=== PATIENT | female | born 1995 | race Caucasian/White ===

== ENCOUNTER 2019-03-24 18:10 | Emergency (ER) | payer MEDICAID, SELFPAY ==
[2019-03-24 18:10] VITALS: BP 125/73; PULSE 77; RESP 18; TEMP 36.2; O2SAT 100; BMI 24.0
--- NOTE | 2019-03-24 18:41 | ED.VISSUMM ---
- ER Visit Summary Date of Service: 03/24/19 Chief Complaint: Nausea and vomiting History of Present Illness: The patient is a 24 F who presents with nausea and vomiting for the past 3 days. Patient states that she has had 10 episodes of vomiting in the last 24 hours. Patient denies any hematemesis or coffee-ground emesis. Patient states her vomiting is stomach contents. Patient admits to some mild aching right lower abdominal pain. Patient states nothing makes it better or worse. Patient denies any diarrhea, melena, or hematochezia. Patient states she is approximately 9 weeks on her third . Patient denies any dysuria or hematuria. Patient denies any fevers or chills. Physical Examination: Vital signs are stable. Patient is afebrile. Patient is in no acute distress. Oral mucosa is pink and moist. Neck is supple. Trachea is midline. There is no JVD noted. Heart was regular rate and rhythm. Lungs are clear and equal bilaterally. Abdomen is soft. Bowel sounds are normal. There is some mild right lower quadrant tenderness. There is no rebound or guarding noted. Cranial nerves II through XII are intact. There are no focal motor or sensory deficits noted. Test Results: CBC, comprehensive metabolic profile, and urinalysis were obtained and were essentially within normal limits. Emergency Department Course and Treatment: Patient was given IV fluids and Zofran here. Patient felt better on reevaluation. Patient was instructed to take small sips of fluids more frequently and advance her diet as she starts to feel better. Patient was instructed to follow-up with her primary care physician and ENVIRONMENTAL RESOURCE SPECIALIST in 5 to 7 days. Patient understood and was agreeable with the plan. All questions were answered. Disposition: Discharge home Impression: Nausea and vomiting This note was generated with [employer] dictation software. It may contain incorrect words, spelling, and punctuation that were not noted in review of the chart prior to signing ED Disposition - Plan for ED Patient: Disposition: Home or Assisted Living Diagnosis: Nausea and vomiting Instructions: VOMITING (7y-Adult) Referrals: Town Doctor,Out of [Primary Care Provider] - 5-7 Days
[2019-03-24] MEDS: 0.9% Normal Saline 1,000 ML 1000 ML IV (19:06)
[2019-03-24] MEDS: Ondansetron 4 MG/2 ML Vial IV (19:11)
[2019-03-24 19:22] LABS: Absolute Lymphocyte Count 2.12 X10^3/ul (0.83-4.51); Absolute Neutrophil Count 7.8 X10^3/uL (2.0-7.7); Basophil# 0.02 X10^3/uL; Basophil% 0.2 % (0-1); Eosinophil# 0.06 X10^3/uL; Eosinophils% 0.6 % (0-5); Hematocrit 38.6 % (37-47); Hemoglobin 13.4 g/dl (12.0-15.0); Lymphocyte # 2.12 X10^3/ul (4.0); Lymphocyte % 20.2 % (19-41); Mean Corp Hgb Conc 34.7 g/gl (32-36); Mean Corpuscular Hgb 30.9 pg (27.0-32.0); Mean Corpuscular Volume 88.9 fL (81-99); Mean Platelet Vol. 8.8 fl (6.2-12.0); Monocyte# 0.53 X10^3/uL; Monocyte% 5.1 % (0-10); Neutrophil # 7.75 X10^3/uL (2.7-7.7); Neutrophil % 73.8 % (47-70); Platelet Count 259 K/mm3 (150-450); RBC Distribution Width CV 12.2 % (11.6-14.6); RBC Distribution Width SD 39.1 fl (35.1-43.9); Red Blood Count 4.34 M/mm3 (4.2-5.4); White Blood Count 10.5 K/mm3 (4.4-11.0)
[2019-03-24 19:31] LABS: POSITIVE COUNT NO; POSITIVE DIFFERENTIAL NO; POSITIVE MORPHOLOGY NO
[2019-03-24 19:42] LABS: ALB/GLOB Ratio 0.9 RATIO (0.9-2.4); AST(SGOT) 15 U/L (15-37); Alanine Aminotransfer ALT/SGPT 15 U/L (13-56); Albumin, Serum 3.6 g/dL (3.2-5.0); Alkaline Phosphatase 76 U/L (45-117); Anion Gap 10 (5-15); BUN 8 mg/dL (7-18); BUN/Creat Ratio 13.9 RATIO (10-20); Calcium,Total 8.9 mg/dL (8.5-10.1); Chloride 104 mmol/L (98-107); Creatinine, Serum 0.58 mg/dL (0.55-1.02); EST Glomerular Filtration Rate 138 mL/min (>60); Est Glom Filt Rate - Afr Amer 167 mL/min (>60); Estimated Creatinine Clearance 108.36 ml/min; Globulin 3.8 g/dL (2.2-4.2); Glucose 70 mg/dL (74-106); Lipase 90 U/L (73-393); Potassium 3.4 mmol/L (3.5-5.1); Protein, Total 7.4 g/dL (6.4-8.2); Sodium Level 138 mmol/L (136-145)
[2019-03-24 20:29] LABS: Bacteria 0 SEEN /hpf (None Seen); Mucous, Urine 0 SEEN /hpf (<or=2+); Red Blood Cells-Urine 0 SEEN /hpf (0-5)
[2019-03-24 21:19] LABS: Color, Urine Yellow (Yellow); Glucose, Dipstick Normal (Normal); Leukocyte Esterase-Dipstick 25 /ul (Negative); Nitrite-Dipstick Negative (Negative); Occult Blood-Urine Negative /ul (Negative); Protein-Dipstick Negative (Negative); Specific Gravity, Urine 1.025 (1.002-1.030); Urine Bilirubin Dipstick Negative (Negative); Urine Clarity Sl. Cloudy (Clear); Urine Urobilinogen Normal (Normal)
[2019-03-24 21:23] LABS: Ketone-Dipstick 150 mg/dl (Negative)
[2019-03-24 21:29] LABS: Squamous Epithelial Cells - UA 0-5 SEEN /hpf (5-10); White Blood Cells 0-5 SEEN /hpf (0-5)
--- NOTE | 2019-03-24 21:41 | ED.RN ---
mechelle from the lab called with a critical ketone urine value of 150 @2130, dr. manzo made aware @2130.
[2019-03-24 22:00] VITALS: BP 122/74; PULSE 75; RESP 16; O2SAT 99
== END 2019-03-24 22:18 | disposition home or self-care (01) ==
PROVIDERS: Emergency Provider Emergency Medicine
DX: O26.891 Other specified pregnancy related conditions, first trimester (principal); R11.2 Nausea with vomiting, unspecified; R10.31 Right lower quadrant pain; R51 Headache; Z3A.09 9 weeks gestation of pregnancy
CPT/HCPCS: 80053; 81001; 83690; 85025; 96361; 96374; 99283; J7030; J2405

== ENCOUNTER → 2019-03-27 11:16 | Outpatient (CLI) | payer MEDICAID, SELFPAY ==
[2019-03-27 10:46] VITALS: BMI 24.0
[2019-03-27 11:59] LABS: Absolute Lymphocyte Count 1.64 X10^3/ul (0.83-4.51); Absolute Neutrophil Count 5.8 X10^3/uL (2.0-7.7); Basophil# 0.01 X10^3/uL; Basophil% 0.1 % (0-1); Eosinophil# 0.04 X10^3/uL; Eosinophils% 0.5 % (0-5); Hematocrit 38.9 % (37-47); Hemoglobin 13.5 g/dl (12.0-15.0); Lymphocyte # 1.64 X10^3/ul (4.0); Lymphocyte % 20.8 % (19-41); Mean Corp Hgb Conc 34.7 g/gl (32-36); Mean Corpuscular Volume 89.2 fL (81-99); Mean Platelet Vol. 8.7 fl (6.2-12.0); Monocyte# 0.38 X10^3/uL; Monocyte% 4.8 % (0-10); Neutrophil # 5.79 X10^3/uL (2.7-7.7); Neutrophil % 73.7 % (47-70); POSITIVE COUNT NO; POSITIVE DIFFERENTIAL NO; POSITIVE MORPHOLOGY NO; Platelet Count 237 K/mm3 (150-450); RBC Distribution Width CV 12.4 % (11.6-14.6); RBC Distribution Width SD 39.3 fl (35.1-43.9); Red Blood Count 4.36 M/mm3 (4.2-5.4); White Blood Count 7.9 K/mm3 (4.4-11.0)
[2019-03-27 13:07] LABS: HIV - WCH Non-Reactive (Nonreactive); Rubella IgG 192.1 IU/mL
[2019-03-30 11:46] LABS: HEPATITIS B SURFACE AG Negative (Negative)
[2019-04-03 01:18] LABS: Rapid Plasmin Reagin (RPR) NONREACTIVE (NONREACTIVE)
== END ==
PROVIDERS: Referring Provider Obstetrics & Gynecology; Visit Provider Obstetrics & Gynecology
DX: Z34.81 Encounter for supervision of other normal pregnancy, first trimester (principal); Z31.430 Encounter of female for testing for genetic disease carrier status for procreative management
CPT/HCPCS: 36415; 85025; 86592; 86703; 86762; 86850; 86900; 87340

== ENCOUNTER → 2019-03-27 13:20 | Outpatient (CLI) | payer MEDICAID, SELFPAY ==
[2019-03-27 10:46] VITALS: BMI 24.0
[2019-03-27 16:05] LABS: Chlamydia Trachomatis by PCR Negative (Negative); Neisserai gonorrhoeae by PCR Negative (Negative); Probe Check PASS; Sample Adequacy Control PASS; Specimen Processing Control PASS
== END ==
PROVIDERS: Referring Provider Obstetrics & Gynecology; Visit Provider Obstetrics & Gynecology
DX: Z34.90 Encounter for supervision of normal pregnancy, unspecified, unspecified trimester (principal)
CPT/HCPCS: 36415; 85025; 86592; 86703; 86762; 86850; 86900; 87086; 87088; 87340; 87491; 87591

== ENCOUNTER → 2019-04-20 17:09 | Outpatient (CLI) | payer MEDICAID, SELFPAY ==
[2019-03-27 10:46] VITALS: BMI 24.0
== END ==
PROVIDERS: Referring Provider Obstetrics & Gynecology; Visit Provider Obstetrics & Gynecology
DX: Z34.81 Encounter for supervision of other normal pregnancy, first trimester (principal)
CPT/HCPCS: 36415

== ENCOUNTER → 2019-06-17 10:12 | Outpatient (CLI) | payer MEDICAID, SELFPAY ==
[2019-06-17 10:08] VITALS: BMI 24.0
== END ==
PROVIDERS: Referring Provider Obstetrics & Gynecology; Visit Provider Obstetrics & Gynecology
DX: Z36.9 Encounter for antenatal screening, unspecified (principal)
CPT/HCPCS: 36415

== ENCOUNTER → 2019-08-07 11:54 | Outpatient (CLI) | payer MEDICAID, SELFPAY ==
[2019-08-07 11:22] VITALS: BMI 24.0
[2019-08-07 12:40] LABS: Absolute Lymphocyte Count 1.59 X10^3/uL (0.83-4.51); Absolute Neutrophil Count 5.8 X10^3/uL (2.0-7.7); Basophil# 0.02 X10^3/uL; Basophil% 0.2 % (0-1); Eosinophil# 0.09 X10^3/uL; Eosinophils% 1.1 % (0-5); Hematocrit 37.6 % (37-47); Hemoglobin 12.7 g/dL (12.0-15.0); Lymphocyte # 1.59 X10^3/ul (4.0); Lymphocyte % 19.8 % (19-41); Mean Corp Hgb Conc 33.8 g/dL (32-36); Mean Corpuscular Hgb 30.8 pg (27.0-32.0); Mean Corpuscular Volume 91.3 fL (81-99); Mean Platelet Vol. 9.1 fl (6.2-12.0); Monocyte# 0.44 X10^3/uL; Monocyte% 5.5 % (0-10); NRBC Flagged by Analyzer 0 % (0-5); Neutrophil # 5.84 X10^3/uL (2.7-7.7); Neutrophil % 72.8 % (47-70); Platelet Count 205 K/mm3 (150-450); RBC Distribution Width CV 12.2 % (11.6-14.6); RBC Distribution Width SD 40.1 fl (35.1-43.9); Red Blood Count 4.12 M/mm3 (4.2-5.4)
[2019-08-07 13:12] LABS: Glucose Challenge Gest 1H 50g 122 mg/dL (70-140)
== END ==
PROVIDERS: Referring Provider Obstetrics & Gynecology; Visit Provider Obstetrics & Gynecology
DX: Z34.92 Encounter for supervision of normal pregnancy, unspecified, second trimester (principal); Z3A.27 27 weeks gestation of pregnancy
CPT/HCPCS: 36415; 82950; 85025

== ENCOUNTER 2019-08-15 14:24 | Outpatient (CLI) | payer MEDICAID, SELFPAY ==
[2019-08-07 11:22] VITALS: BMI 24.0
[2019-08-15 14:36] VITALS: BMI 25.0
--- NOTE | 2019-08-16 22:25 | OB.TRI.PN_ITS ---
Progress Notes Date of Service: 08/15/19 Progress Note: FHT: 130 Moderate variability reactive no decelerations category I tracing [place]: no regular Contractions decreased fm reactive nst dc home Multi Select Codes - Urinary/Genital Urinary/Genital CPT Codes: 57298-71 non-stress test Interp
== END 2019-08-15 14:50 | disposition home or self-care (01) ==
LOC: WPOUT 14:25 → OBT 14:27
PROVIDERS: Referring Provider Obstetrics & Gynecology; Visit Provider Obstetrics & Gynecology
DX: Z34.90 Encounter for supervision of normal pregnancy, unspecified, unspecified trimester (principal)
CPT/HCPCS: 59025; 59050; 99218; G0378

== ENCOUNTER → 2019-10-09 14:17 | Outpatient (CLI) | payer MEDICAID, SELFPAY ==
[2019-10-09 11:22] VITALS: BMI 25.0
== END ==
PROVIDERS: Referring Provider Nurse Practitioner Women's Health; Visit Provider Nurse Practitioner Women's Health
DX: Z34.80 Encounter for supervision of other normal pregnancy, unspecified trimester (principal)
CPT/HCPCS: 87081

== ENCOUNTER 2019-10-16 12:30 | Inpatient (IN) | payer MEDICAID, SELFPAY ==
[2019-10-16 11:17] VITALS: BMI 25.0
[2019-10-16 12:06] LABS: Protein:Creat Ratio 369 mg/g CRE (0-200)
[2019-10-16 12:24] VITALS: BMI 28.3
[2019-10-16] MEDS: Lactated Ringers 1,000 ML 50 ML IV (13:15)
[2019-10-16 13:34] LABS: Absolute Lymphocyte Count 2.38 X10^3/uL (0.83-4.51); Basophil# 0.03 X10^3/uL; Basophil% 0.3 % (0-1); Eosinophil# 0.05 X10^3/uL; Eosinophils% 0.5 % (0-5); Hematocrit 38.1 % (37-47); Hemoglobin 12.8 g/dL (12.0-15.0); Lymphocyte # 2.38 X10^3/ul (4.0); Lymphocyte % 23.6 % (19-41); Mean Corp Hgb Conc 33.6 g/dL (32-36); Mean Corpuscular Hgb 28.4 pg (27.0-32.0); Mean Corpuscular Volume 84.5 fL (81-99); Mean Platelet Vol. 9.7 fl (6.2-12.0); Monocyte# 0.61 X10^3/uL; NRBC Flagged by Analyzer 0 % (0-5); Neutrophil # 6.95 X10^3/uL (2.7-7.7); Neutrophil % 68.9 % (47-70); Platelet Count 185 K/mm3 (150-450); RBC Distribution Width CV 13.2 % (11.6-14.6); RBC Distribution Width SD 40.1 fl (35.1-43.9); Red Blood Count 4.51 M/mm3 (4.2-5.4); White Blood Count 10.1 K/mm3 (4.4-11.0)
[2019-10-16 13:45] LABS: Prothrombin Time (Protime)PT. 13.2 SECONDS (11.7-14.9)
[2019-10-16 13:46] LABS: AST(SGOT) 26 U/L (15-37); Alanine Aminotransfer ALT/SGPT 20 U/L (13-56); Creatinine, Serum 0.53 mg/dL (0.55-1.02); EST Glomerular Filtration Rate 150 mL/min (>60); Est Glom Filt Rate - Afr Amer 182 mL/min (>60); Estimated Creatinine Clearance 118.58 ml/min; Partial Thromboplast Time 29.4 Seconds (24.1-36.2); Uric Acid 4.7 mg/dL (2.6-6.0)
[2019-10-16] MEDS: Oxytocin 30 units/NS 500 ml 30 UNITS/500 ML IV.SOLN IV (13:57)
[2019-10-16] MEDS: Lactated Ringers 500 ML 999 ML IV ×2 (16:00→17:11)
[2019-10-16] MEDS: fentaNYL-bupivacaine (epidural) 100 ML BAG EPIDURAL ×2 (16:52→21:16)
--- NOTE | 2019-10-16 17:05 | PCM.HPOB.BLA ---
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 [place] low risk. afp negative. Anatomy scan normal. (4) Supervision of other normal Status: Acute Comment: PRR BEE 11/01/19 girl Aleksey Szymanski Spouse (5) Pre-eclampsia, mild Status: Acute History and Physical Date of Admission: 10/16/19 Intake Vital Signs 10/16/19 BMI 25.0 10/16/19 Height 5 ft 5 in 10/16/19 Weight: 148 lb 10/16/19 BMI 24.6 10/16/19 BP 140/102 H Intake Visit Reasons: 37 WEEK OB Chief Complaint: est ob Service Tech/Welder Required: No Is patient in pain?: No Allergies No Known Allergies Allergy (Verified 10/16/19 11:16) Medications vitamin#30 30 mg iron-10 mg iron-folic acid 1 mg-omg3 capsule 1 cap PO DAILY cap 03/27/19 [History Confirmed 10/16/19] Last Menstral Period: 01/18/19 Zika: Zika virus screening: Negative : No PFSH PFSH Medical History Anxiety and depression (Acute) Social History (Updated 10/16/19 @ 11:44 by Aracelis Lynn MD) Smoking Status: Never smoker alcohol intake: never substance use type: does not use caffeine: Yes what type of physical activity do you participate in: walking seatbelt use: always do you feel safe at home: Yes additional social history: [employer] 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 Date Name GA/Weeks Outcome Route Bth Weight Gen Labor Lgth Anesthesia Del Locatn Provider FOB Unknown 2013 Mark 39 live - full term 7lbs 8oz Female epidural Joe Huerta Unknown 2016 Aleksey 38 live - full term 6lbs 7oz Male epidural Joe Reese Delivery Date: On 03/27/19 @ 10:34 Carrie De Oliveira Vacuum delivery, episomtomy Delivery Date: On 03/27/19 @ 10:35 Carrie De Oliveira No complications HPI 37 WEEK OB: Details: RAISA HERNANDEZ is a 24 year old who presents for routine OB visit. she was found to have elevated bps and high protein in the urine therefore is being induced for preeclampsia. she has intemrittent headaches and some wavy vision but it has resolved at present. OB Visit BEE Calculator Estimated Delivery Date Method Current WG Current Estimate 11/01/19 Ultrasound #1 37w 5d Other Estimates 10/25/19 LMP (Certain) 38w 5d Expected Delivery Route/Plan Labor Preferences- labor support person: Rodrick pain management options preferred: epidural cut cord/dad catch: yes : yes PP control planned: discussed possible routes of delivery and associated risks: [] special requests: [] Specific Issue/Plans flu vaccine: declines tdap vaccine: given rhogam: na LARC form signed: yes movement and labor precautions reviewed. Problem list reviewed and updated with the most current plan of care details and appropriate orders placed. Relevant counseling for the gestational age provided. Continue routine care and follow up unless otherwise noted in visit notes/problem list details Initial Weight: 123 lb Date EGA Weight BP Urine Prot Glucose FHR FuHt Pres Mov CTX Dilation Effaced St Visit Note 03/27/19 8w 5d 123 lb 6 oz (+6 oz) 120/72 04/24/19 12w 5d 119 lb 2 oz (-3 lb 14 oz) 114/62 Negative Negative 160 no vb cramping had nipt carrier screening drawn saturday05/22/19 16w 5d 116 lb (-7 lb) 90/68 Negative Negative 150 no vb cramping still having nausea and some weight loss persistent 06/17/19 20w 3d 120 lb 2 oz (-2 lb 14 oz) 116/72 Negative Negative 150 no vb lof 07/17/19 24w 5d 125 lb (+2 lb) 110/68 Negative Negative 147 24 Good FM. NO cTX, LOF. VB 08/07/19 27w 5d 130 lb (+7 lb) 124/84 145 28 no vb lof good fm n oreg ctx cbc gct tdap 08/21/19 29w 5d 130 lb 4 oz (+7 lb 4 oz) 118/74 Negative Negative 151 30 Good FM. No VB, LOF 09/02/19 31w 3d 134 lb (+11 lb) 120/70 Negative Negative 150 31 no vb lof good fm noreg ctx 09/18/19 33w 5d 138 lb 4 oz (+15 lb 4 oz) Trace Negative 150 35 no vb lof good fm no reg ctx 10/02/19 35w 5d 143 lb (+20 lb) 118/84 Negative Negative 150 36 SM- no vb lof good fm no regular ctx 10/09/19 36w 5d 143 lb 4 oz (+20 lb 4 oz) 122/85 Negative Negative 164 36 1 30 -3 MH:doing well. Good FM. No VB, LOF. GBS 10/16/19 37w 5d 148 lb (+25 lb) 140/102 140 37 2.5 SM- no vb lof good fm no regular ctx. elevated bps and not feeling well- to l and d for evaluation Notes Visit Date: 10/16/19 ??No visit notes to display Visit Date: 10/09/19 ??No visit notes to display Visit Date: 10/02/19 ??No visit notes to display Visit Date: 09/18/19 ??no vb lof good fm no reg ctx ??Aracelis Lynn MD on 09/18/19 Visit Date: 09/02/19 ??no vb lof good fm noreg ctx ??Aracelis Lynn MD on 09/02/19 Visit Date: 08/21/19 ??Good FM. No VB, LOF ??MEGAN Byrd on 08/21/19 Visit Date: 08/07/19 ??no vb lof good fm n oreg ctx cbc gct tdap ??Aracelis Lynn MD on 08/07/19 Visit Date: 07/17/19 ??Good FM. NO cTX, LOF. VB ??MEGAN Byrd on 07/17/19 Visit Date: 06/17/19 ??no vb lof ??Aracelis Lynn MD on 06/17/19 Visit Date: 05/22/19 ??no vb cramping still having nausea and some weight loss persistent ??Aracelis Lynn MD on 05/22/19 Visit Date: 04/24/19 ??no vb cramping had nipt carrier screening drawn saturday ??Aracelis Lynn MD on 04/24/19 Visit Date: 03/27/19 ??No visit notes to display ACOG First Trimester First Trimester: Desire for , Alcohol, Tobacco Cessation, Illicit/Recreational Drug/Substance Use, Intimate Partner Violence, Barriers to care, Unstable Housing, Communication Barriers, Environmental/Work Hazards, Anticipated Course of Care, Toxoplasmosis Precations, Use of Any medications, Sexual activity, Exercise, Dental Care, Sauna/Hot tub use, Seat Belt use, Childbirth classes/Hospital facilities, , Travel, Indications for US and Screening for Aneuploidy Second Trimester Second Trimester: Signs and Symptoms of Labor, Selecting a care provider, Reproductive Life Planning, Care Planning, Tobacco Cessation, Depression/Anxiety and Intimate Partner Violence Third Trimester Third Trimester: Pain Management Plans, Labor support person(s), Immediate Larc, Movement Monitoring and Feeding Yes ; discussed Trial of Labor after Counseling or discussed Circumcision preference Diagnostics Diagnostics Diagnostics Glucose 1 Hr 50 gm 122 mg/dL (70-140) 08/07/19 Hgb 12.7 g/dL (12.0-15.0) 08/07/19 Hct 37.6 % (37-47) 08/07/19 Details: HIV: Urine Culture: Sequential Screen: NIPT Screen: ROS Const Reports system reviewed and no additional complaints, except as docu Card Reports system reviewed and no additional complaints, except as docu Resp Reports system reviewed and no additional complaints, except as docu GI Reports system reviewed and no additional complaints, except as docu, Reports nausea Reports system reviewed and no additional complaints, except as docu Musc Reports system reviewed and no additional complaints, except as docu Exam Const General: cooperative, healthy appearing, comfortable, anxious HENMT Head: normal to inspection Nose: external nose normal Face and sinus: normal facial exam Neck Neck: normal visual inspection, full ROM, no lymphadenopathy Thyroid: thyroid normal Chest Chest palpation & inspection: normal inspection of the chest Resp Effort & Inspection: normal respiratory effort GI Inspection: normal to inspection Palpation: soft, other (gravid uterus) Other: infant vertex and appropriate size for gestational age Other: Cervical Exam: Extrem General: pedal edema Assessment & Plan Problems 1. Gene mutation Z15.89 2. 37 weeks gestation of Z3A.37 3. Supervision of other normal Z34.80 preeclampsia with mild features- urine protein cr ratio 365mg and bps 140s-150s / 100s. plan Pit IOL gbs neg epidural PRN Orders Orders: POC Urinalysis 2 Dip (Clinic) Today Protein+Creatinine Ratio,Urine Today O16.3 Comprehensive Metabolic Profil Today O16.3 CBC W/Diff, Automated Today O16.3 Coding Level of Care Code Off vis,est,level 3 Diagnoses Gene mutation Z15.89 37 weeks gestation of Z3A.37 ??Weeks of gestation: 37 weeks Supervision of other normal Z34.80
[2019-10-16] MEDS: Oxytocin 30 units/NS 500 ml 30 UNITS/500 ML IV.SOLN 334 UNITS IV (22:57)
--- NOTE | 2019-10-16 23:10 | PCM.OPRPT ---
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 [place] low risk. afp negative. Anatomy scan normal. (4) Supervision of other normal Status: Acute Comment: PRR BEE 11/01/19 girl Aleksey Szymanski Spouse (5) Pre-eclampsia, mild Status: Acute Vaginal Delivery Maternal Presentation: Medically Indicated Induction iol preeclampsia Method of Induction: Pitocin Medical Reason for Induction: Preeclampsia, eclampsia Amniotic Membrane Rupture Type: Artificial Amniotic Fluid Description: Clear Final BEE: 11/01/19 Gestational age: 37 Weeks and 5 Days Date of Procedure: 10/16/19 Pre-Operative Diagnosis: iol preeclampsia Post-Operative Diagnosis: same Surgery/ Procedure Performed: Spontaneous Vaginal Delivery Type of Anesthesia: Epidural Description of Procedure: Patient began pushing and delivered the head in the JANUSZ presentation. The head was delivered atraumatically and a loose nuchal cord ?1 was identified and easily reduced over the infant's head. The anterior and posterior shoulders delivered without complication followed by the rest of the infant and the was placed on the maternal abdomen. Delayed cord clamping was employed for approximately 60 seconds. Cord was clamped and cut and gentle traction was applied to the cord and the placenta delivered spontaneously immediately following it was noted to be intact with three-vessel cord. The perineum and vagina were inspected and noted to have no laceration. EBL was 200 cc. Patient and tolerated delivery well. Presentation: JANUSZ Placental Delivery Description: Spontaneous Placenta Disposition: [facility] Cord Vessel Description: 3 Vessels Nuchal Cord Compression: With compression Cord Entanglement: Around neck x 1, loose Drain: Macias to straight drain Estimated Blood Loss: 200 A gender: Female Episiotomy Description: None Laceration: None Medications given after delivery: IV Pitocin Complications: None Multi Select Codes - Urinary/Genital Urinary/Genital CPT Codes: 15387 Vaginal Delivery+ PP Care([facility])
[2019-10-17 03:55] VITALS: BP 115/67; PULSE 81; RESP 17; TEMP 36.6
--- NOTE | 2019-10-17 07:52 | PN.OBGYN_ITS ---
Patient Problems: Active and Suspected Problems (Last Reviewed 10/16/19 @ 11:17 by Hannah Moody) Elevated blood pressure affecting in third trimester, antepartum (Acute) Pre-eclampsia, mild (Acute) Subjective: doing well no complaints pain controlled no CP SOB N V ambulating well tolerating po lochia moderate, going well - Physical Exam Vitals/I&O's: Vital Signs Temp Pulse Resp BP 97.9 F 81 17 115/67 10/17/19 03:55 10/17/19 03:55 10/17/19 03:55 10/17/19 03:55 Oxygen Delivery Method Room Air Weight: 144 lb 13.499 oz Body Mass Index (BMI) 28.3 Intake and Output for Last 24 Hours 10/15/19 10/16/19 10/17/19 23:59 23:59 23:59 Intake Total 2224.50 / 2224.50 333 / 333 Output Total 800 / 800 1300 / 1300 Balance 1424.50 / 1424.50 -967 / -967 General: Alert, Oriented x3 Laboratory Results 10/16/19 11:45: U Random Total Protein 20.0 H, Urine Creatinine 54.20, Protein/Creatinin Ratio 369 H 10/16/19 13:20: WBC 10.1, RBC 4.51, Hgb 12.8, Hct 38.1, MCV 84.5, MCH 28.4, MCHC 33.6, RDW Std Deviation 40.1, RDW Coeff of [place]mond 13.2, Plt Count 185, MPV 9.7, Immature Gran % (Auto) 0.700, Neut % (Auto) 68.9, Lymph % (Auto) 23.6, [place] % (Auto) 6.0, Eos % (Auto) 0.5, Baso % (Auto) 0.3, Absolute Neuts (auto) 7.0, Absolute Lymphs (auto) 2.38, Nucleated RBC % 0 10/16/19 13:20: PT 13.2, INR 1.0, APTT 29.4 10/16/19 13:20: Creatinine 0.53 L, Estim Creat Clear Calc 118.58, Est GFR (MDRD) Af Amer 182, Est GFR (MDRD) Non-Af 150, Uric Acid 4.7, AST 26, ALT 20 10/16/19 13:20: Blood Type A POSITIVE, Antibody Screen NEGATIVE Current Medications Acetaminophen (Tylenol) 1,000 mg PO Q8H PRN PRN PRN Reason: Pain Score 1-3/10 Bisacodyl (Dulcolax) 10 mg RECTAL UD PRN PRN Reason: If no BM Dibucaine (Dibucaine) 1 applic TOPICAL TID PRN PRN; Protocol PRN Reason: Discomfort Hydrocortisone (Hytone) 1 applic TOPICAL TID PRN PRN; Protocol PRN Reason: Discomfort Naproxen (Naprosyn) 500 mg PO Q8H PRN PRN PRN Reason: Pain Score 1-3/10 Ondansetron HCl (Zofran) 4 mg IV Q4H PRN PRN PRN Reason: Nausea Oxycodone HCl (Oxyir) 5 - 10 mg PO Q4H PRN PRN PRN Reason: Pain Score 4-10/10 Senna/Docusate Sodium (Senokot-S, Natasha-Colace) 1 - 2 tablet PO DAILY PRN PRN PRN Reason: Constipation Simethicone (Mylicon) 80 mg PO PCHS PRN PRN Reason: Indigestion/Stomach pain Sodium Chloride () 5 - 15 ml IV UD PRN PRN Reason: SALINE FLUSH Medical Necessity - Tobacco Use Smoking Status: Never smoker Assessment/Plan All Active Problems (Last Reviewed 10/16/19 @ 11:17 by Hannah Moody) Elevated blood pressure affecting in third trimester, antepartum (Acute) Pre-eclampsia, mild (Acute) Gene mutation (Acute) (Acute) Supervision of other normal (Acute) s/p PPD # 1 1. routine post delivery care 2. breast feeding- support given 3. rh positive 4. rubella immune
[2019-10-17 08:15] VITALS: BP 135/75; PULSE 81; RESP 18; TEMP 37.1
[2019-10-17] MEDS: Naproxen 250 MG Tablet 500 MG PO ×2 (08:15→16:28)
[2019-10-17 12:30] VITALS: BP 127/77; PULSE 95; RESP 18; TEMP 36.7
[2019-10-17 16:25] VITALS: BP 124/88; PULSE 94; RESP 20; TEMP 36.5
[2019-10-17] MEDS: Acetaminophen 500 MG Tablet 1000 MG PO (18:22)
--- NOTE | 2019-10-17 18:40 | CASEMGMT ---
Social Work Brief Assessment - Labor and Delivery Unit Refer documentation below for further details. Date of Referral/Notification: 10/17/2019 Time of Referral: 10:15/14:32 Referred By: DR. POWER Reason for Referral: HX OF DEPRESSION, TRIGGERED BY PHQ9 SCORE=14 Date of Intervention: 10/17/2019 Time of Intervention: 18:40 Informant: Medical record and mother of baby (MOB) History: MOB WITH HISTORY OF DEPRESSION DIAGNOSED 1 YEAR AGO. MOB STATES BELIEVES DEPRESSION TO HAVE STARTED DURING TEEN YEARS. MOB STATES WAS ON ANTIDEPRESSANT BEFORE BECOMING AND PLANS TO DISCUSS MEDICATION WITH PHYSICIAN. Assessment: MET WITH MOB ALONE IN ROOM. 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 ESTEPHANIA REPORTS HAS 2 OTHER CHILDREN AT HOME, KATELYN AGE 5 AND CLIFF AGE 3. FOB IS ILIR DONIMASTER. MOB REPORTS SHE AND ILIR HAVE BEEN TOGETHER FOR 4 YEARS AND IS A GOOD/SUPPORTIVE RELATIONSHIP. ESTEPHANIA REPORTS HAS ALL NEEDS MET FOR BABY INCLUDING, DIAPERS, WIPES, CAR SEAT, CRIB, CLOTHES. ESTEPHANIA YANG HAS GOOD SUPPORT FROM HER FAMILY AND CATA'S FAMILY AND THEY WILL ASSIST WITH CHILDCARE NEEDED. MOB STATES AGENCY INVOLVEMENT WITH [employer]FS AND COUNSELING IN THE PAST. ESTEPHANIA YANG WAS IN COUNSELING WHEN NOT ON MEDICATION AND FEELS TALKING ABOUT IT MADE THE DEPRESSION WORSE. MOB REPORTS WOULD BE OPEN TO COUNSELING ONCE BACK ON ANTIDEPRESSANT. MOB TO DISCUSS MEDICATION WITH PHYSICIAN. PROVIDED LIST OF AREA RESOURCES FOR [facility]. DISCUSSED POST DEPRESSION AND PROVIDED MOB WITH INFORMATIONAL PACKET. MOB DENIES ANY FURTHER NEEDS. UPDATED MOB'S NURSE ON THIS WORKER'S ASSESSMENT. Plan: HOME WITH RESOURCES PROVIDED. ESTEPHANIA YANG WILL BE TALKING WITH PHYSICIAN ABOUT GETTING RE-STARTED ON ANTIDEPRESSANT. No further needs requested or indicated. -Yue Romero, MACHINE SKIVER, THREAD REELER
[2019-10-17 20:10] VITALS: BP 121/70; PULSE 87; RESP 18; TEMP 36.6; O2SAT 99
[2019-10-18 02:22] VITALS: BP 111/66; PULSE 68; RESP 18; TEMP 36.2; O2SAT 96
[2019-10-18] MEDS: Naproxen 250 MG Tablet 500 MG PO (02:24)
--- NOTE | 2019-10-18 07:51 | PCM.PN.OB ---
Patient Problems: Active and Suspected Problems (Last Reviewed 10/16/19 @ 11:17 by Hannah Moody) Elevated blood pressure affecting in third trimester, antepartum (Acute) Pre-eclampsia, mild (Acute) Subjective: doing well no complaints pain controlled no CP SOB N V ambulating well tolerating po lochia moderate, going well - Physical Exam Vitals/I&O's: Vital Signs Temp Pulse Resp BP Pulse Ox 97.2 F L 68 18 111/66 96 10/18/19 02:22 10/18/19 02:22 10/18/19 02:22 10/18/19 02:22 10/18/19 02:22 Oxygen Delivery Method Room Air Weight: 144 lb 13.499 oz Body Mass Index (BMI) 28.3 Intake and Output for Last 24 Hours 10/16/19 10/17/19 10/18/19 23:59 23:59 23:59 Intake Total 2224.50 / 2224.50 333 / 333 Output Total 800 / 800 1300 / 1300 Balance 1424.50 / 1424.50 -967 / -967 General: Alert, Oriented x3 Current Medications Acetaminophen (Tylenol) 1,000 mg PO Q8H PRN PRN PRN Reason: Pain Score 1-3/10 Last Admin: 10/17/19 18:22 Dose: 1,000 mg Documented by: Bisacodyl (Dulcolax) 10 mg RECTAL UD PRN PRN Reason: If no BM Dibucaine (Dibucaine) 1 applic TOPICAL TID PRN PRN; Protocol PRN Reason: Discomfort Hydrocortisone (Hytone) 1 applic TOPICAL TID PRN PRN; Protocol PRN Reason: Discomfort Naproxen (Naprosyn) 500 mg PO Q8H PRN PRN PRN Reason: Pain Score 1-3/10 Last Admin: 10/18/19 02:24 Dose: 500 mg Documented by: Ondansetron HCl (Zofran) 4 mg IV Q4H PRN PRN PRN Reason: Nausea Oxycodone HCl (Oxyir) 5 - 10 mg PO Q4H PRN PRN PRN Reason: Pain Score 4-10/10 Senna/Docusate Sodium (Senokot-S, Natasha-Colace) 1 - 2 tablet PO DAILY PRN PRN PRN Reason: Constipation Simethicone (Mylicon) 80 mg PO PCHS PRN PRN Reason: Indigestion/Stomach pain Sodium Chloride () 5 - 15 ml IV UD PRN PRN Reason: SALINE FLUSH Medical Necessity - Tobacco Use Smoking Status: Never smoker Assessment/Plan All Active Problems (Last Reviewed 10/16/19 @ 11:17 by Hannah Moody) Elevated blood pressure affecting in third trimester, antepartum (Acute) Pre-eclampsia, mild (Acute) Gene mutation (Acute) (Acute) Supervision of other normal (Acute) s/p PPD # 2 1. routine post delivery care 2. breast feeding- support given 3. rh positive 4. rubella immune
[2019-10-18 09:30] VITALS: BP 130/84; PULSE 85; RESP 20; TEMP 36.7
--- NOTE | 2019-10-18 10:43 | DCINST_ITS ---
Discharge Diet: No Restrictions Discharge Activity: Return to Normal Activity, May not drive while taking narcotic pain medications., May Shower May resume sexual activity in: 4-6 weeks Call your doctor if your incision/area has: Continuous Slow Oozing, Sudden Increased Bleeding, Increased Pain/ Swelling, Increased Redness, Foul Smelling Discharge Instructions: After a Vaginal , Understanding Preeclampsia, : Caring for Yourself, at Home Additional Instructions: If you experience any of the following, contact your healthcare provider. * Bleeding that soaks a pad every hour for 2 hours * Fever 100.4 or higher * Unrelieved incision or abdominal pain * Swelling, redness, discharge or bleeding from your incision or episiotomy site * Your incision begins to separate * Problems urinating (including inability to urinate or burning while urinating). * Visual changes * Severe headache * Flu-like symptoms * Pain or redness in one of both of your breasts * Pain, warmth, tenderness or swelling in your legs, especially the calf area * Frequent nausea and vomiting * Symptoms of depression or anxiety If you experience any of the following, call 911 or go to the nearest Emergency Room. * Chest pain * Problems breathing * Seizure activity * Partial or complete paralysis of a body part, slurred speech, weakness or drooping of the face, or a sudden inability to walk or hold your balance Allergies/Adverse Reactions: Allergies No Known Allergies Allergy (Verified 10/16/19 11:16) Medications to take at Discharge vitamin#30 30 mg iron-10 mg iron-folic acid 1 mg-omg3 capsule 1 cap PO DAILY cap 03/27/19 Please Follow Up With: Aracelis Lynn MD - [phone] When: Call to make an appointment with your doctor in 6 weeks. If you had elevated Blood pressure or 4th degree laceration you will need to be seen in 2 weeks. Primary Care Physician: Care Physician,No Primary [Primary Care Provider] - Test Results: Test results from this visit will be discussed in further detail at your follow- up appointment, if applicable.
--- NOTE | 2019-10-18 10:43 | PCM.DCVAG ---
Discharge Diet: No Restrictions Discharge Activity: Return to Normal Activity, May not drive while taking narcotic pain medications., May Shower May resume sexual activity in: 4-6 weeks Call your doctor if your incision/area has: Continuous Slow Oozing, Sudden Increased Bleeding, Increased Pain/ Swelling, Increased Redness, Foul Smelling Discharge Instructions: After a Vaginal , Understanding Preeclampsia, : Caring for Yourself, at Home Additional Instructions: If you experience any of the following, contact your healthcare provider. Bleeding that soaks a pad every hour for 2 hours Fever 100.4 or higher Unrelieved incision or abdominal pain Swelling, redness, discharge or bleeding from your incision or episiotomy site Your incision begins to separate Problems urinating (including inability to urinate or burning while urinating). Visual changes Severe headache Flu-like symptoms Pain or redness in one of both of your breasts Pain, warmth, tenderness or swelling in your legs, especially the calf area Frequent nausea and vomiting Symptoms of depression or anxiety If you experience any of the following, call 911 or go to the nearest Emergency Room. Chest pain Problems breathing Seizure activity Partial or complete paralysis of a body part, slurred speech, weakness or drooping of the face, or a sudden inability to walk or hold your balance Allergies/Adverse Reactions: Allergies No Known Allergies Allergy (Verified 10/16/19 11:16) Medications to take at Discharge vitamin#30 30 mg iron-10 mg iron-folic acid 1 mg-omg3 capsule 1 cap PO DAILY cap 03/27/19 Please Follow Up With: Aracelis Lynn MD - [phone] When: Call to make an appointment with your doctor in 6 weeks. If you had elevated Blood pressure or 4th degree laceration you will need to be seen in 2 weeks. Primary Care Physician: Care Physician,No Primary [Primary Care Provider] - Test Results: Test results from this visit will be discussed in further detail at your follow-up appointment, if applicable.
== END 2019-10-18 11:00 | disposition home or self-care (01) | DRG 560 ==
LOC: WPOUT 12:53 → WP 12:53
PROVIDERS: Admitting Provider Obstetrics & Gynecology; Referring Provider Obstetrics & Gynecology; Visit Provider Obstetrics & Gynecology
DX: O14.04 Mild to moderate pre-eclampsia, complicating childbirth (principal); O69.1XX0 Labor and delivery complicated by cord around neck, with compression, not applicable or unspecified; O60.14X0 Preterm labor third trimester with preterm delivery third trimester, not applicable or unspecified; Z15.89 Genetic susceptibility to other disease; Z3A.37 37 weeks gestation of pregnancy; Z37.0 Single live birth
CPT/HCPCS: 59025; 59050; 82565; 82570; 84156; 84450; 84460; 84550; 85025; 85610; 85730; 86850; 86900; 86901; 99218; J7120; G0378

== ENCOUNTER → 2022-04-25 | Outpatient (CLI) | payer MEDICAID, SELFPAY ==
[2022-04-25 17:02] LABS: Protein:Creat Ratio 84 mg/g CRE (0-200)
[2022-04-30 01:06] LABS: Chlamydia By Nucleic Acid AMP Negative (Negative)
[2022-04-30 09:14] LABS: Gonococcus By Nucleic Acid AMP Negative (Negative)
[2022-05-02 10:27] LABS: HPV APTIMA, High Risk Negative (Negative); HPV Reflexed? YES, CHARGE PATIENT
== END | disposition home or self-care (01) ==
LOC: LABSPEC 16:19
PROVIDERS: Visit Provider Obstetrics & Gynecology
DX: O09.299 Supervision of pregnancy with other poor reproductive or obstetric history, unspecified trimester (principal); Z12.4 Encounter for screening for malignant neoplasm of cervix
CPT/HCPCS: 82570; 84156; 87086; 87088; 87491; 87591; 87624; 88175; G0145

== ENCOUNTER → 2022-05-02 | Outpatient (CLI) | payer MEDICAID, SELFPAY ==
[2022-05-02 14:11] LABS: Absolute Neutrophil Count 5.9 X10^3/uL (2.0-7.7); Basophil# 0.02 X10^3/uL; Basophil% 0.2 % (0-1); Eosinophil# 0.08 X10^3/uL; Eosinophils% 0.9 % (0-5); Hematocrit 37.9 % (37-47); Hemoglobin 13.1 g/dL (12.0-15.0); Lymphocyte % 25.5 % (19-41); Mean Corp Hgb Conc 34.6 g/dL (32-36); Mean Corpuscular Volume 89.6 fL (81-99); Mean Platelet Vol. 8.4 fl (6.2-12.0); Monocyte# 0.43 X10^3/uL; NRBC Flagged by Analyzer 0 % (0-5); Neutrophil # 5.86 X10^3/uL (2.7-7.7); Neutrophil % 67.8 % (47-70); Platelet Count 232 K/mm3 (150-450); RBC Distribution Width CV 12.3 % (11.6-14.6); RBC Distribution Width SD 39.5 fl (35.1-43.9); Red Blood Count 4.23 M/mm3 (4.2-5.4); White Blood Count 8.6 K/mm3 (4.4-11.0)
[2022-05-02 14:58] LABS: ALB/GLOB Ratio 0.9 RATIO (0.9-2.4); AST(SGOT) 10 U/L (15-37); Alanine Aminotransfer ALT/SGPT 16 U/L (13-56); Albumin, Serum 3.5 g/dL (3.2-5.0); Alkaline Phosphatase 62 U/L (45-117); Anion Gap 5 (5-15); BUN 7 mg/dL (7-18); BUN/Creat Ratio 12.9 RATIO (10-20); Calcium,Total 8.7 mg/dL (8.5-10.1); Chloride 105 mmol/L (98-107); Creatinine, Serum 0.54 mg/dL (0.55-1.02); EST Glomerular Filtration Rate 145 mL/min (>60); Est Glom Filt Rate - Afr Amer 175 mL/min (>60); Globulin 3.7 g/dL (2.2-4.2); Glucose 94 mg/dL (74-106); Potassium 3.4 mmol/L (3.5-5.1); Protein, Total 7.2 g/dL (6.4-8.2); Sodium Level 136 mmol/L (136-145); Thyroid Stim Hormone (TSH) 0.29 uIU/mL (0.358-3.74)
[2022-05-02 15:04] LABS: NATERA MAILED SPECIMEN
[2022-05-02 15:31] LABS: HIV - WCH Non-Reactive (Nonreactive); Hepatitis B Surface Antigen Non-Reactive (Nonreactive); Hepatitis C Antibody Non-Reactive (Nonreactive); Rubella IgG Reactive (Nonreactive); Syphilis Antibodies Non-reactive
== END | disposition home or self-care (01) ==
LOC: PAVLAB 13:46
PROVIDERS: Obstetrics & Gynecology; Referring Provider Obstetrics & Gynecology; Visit Provider Obstetrics & Gynecology
DX: O09.299 Supervision of pregnancy with other poor reproductive or obstetric history, unspecified trimester (principal)
CPT/HCPCS: 36415; 80053; 84443; 85025; 86703; 86762; 86780; 86803; 86850; 86900; 86901; 87340

== ENCOUNTER → 2022-07-18 | Outpatient (CLI) | payer MEDICAID, SELFPAY ==
[2022-07-18 11:24] LABS: T4 Free Direct 0.88 ng/dL (0.76-1.46); Thyroid Stim Hormone (TSH) 0.73 uIU/mL (0.358-3.74)
[2022-07-19 10:34] LABS: Thyroid Peroxidase AB < 8 IU/mL (0-34)
== END | disposition home or self-care (01) ==
LOC: PAVLAB 10:19
PROVIDERS: Referring Provider Nurse Practitioner Women's Health; Visit Provider Nurse Practitioner Women's Health
DX: Z34.90 Encounter for supervision of normal pregnancy, unspecified, unspecified trimester (principal); R94.6 Abnormal results of thyroid function studies
CPT/HCPCS: 36415; 84439; 84443; 86376

== ENCOUNTER → 2022-08-16 | Outpatient (CLI) | payer MEDICAID, SELFPAY ==
[2022-08-16 11:04] LABS: Absolute Lymphocyte Count 2.07 X10^3/uL (0.83-4.51); Absolute Neutrophil Count 5.9 X10^3/uL (2.0-7.7); Basophil# 0.03 X10^3/uL; Basophil% 0.3 % (0-1); Eosinophil# 0.15 X10^3/uL; Eosinophils% 1.7 % (0-5); Hematocrit 38.7 % (37-47); Lymphocyte # 2.07 X10^3/ul (0.83-4.51); Lymphocyte % 24.1 % (19-41); Mean Corp Hgb Conc 33.6 g/dL (32-36); Mean Corpuscular Hgb 30.8 pg (27.0-32.0); Mean Corpuscular Volume 91.7 fL (81-99); Mean Platelet Vol. 8.3 fl (6.2-12.0); Monocyte# 0.42 X10^3/uL; Monocyte% 4.9 % (0-10); NRBC Flagged by Analyzer 0 % (0-5); Neutrophil # 5.87 X10^3/uL (2.7-7.7); Neutrophil % 68.5 % (47-70); Platelet Count 222 K/mm3 (150-450); RBC Distribution Width CV 12.7 % (11.6-14.6); RBC Distribution Width SD 41.2 fl (35.1-43.9); Red Blood Count 4.22 M/mm3 (4.2-5.4); White Blood Count 8.6 K/mm3 (4.4-11.0)
[2022-08-16 11:15] LABS: Protein, Urine (Random) 6.3 mg/dL (<11.9); Protein:Creat Ratio 79 mg/g CRE (0-200)
[2022-08-16 11:23] LABS: ALB/GLOB Ratio 0.7 RATIO (0.9-2.4); AST(SGOT) 8 U/L (15-37); Alanine Aminotransfer ALT/SGPT 12 U/L (13-56); Albumin, Serum 2.7 g/dL (3.2-5.0); Alkaline Phosphatase 79 U/L (45-117); Anion Gap 8 (5-15); BUN 6 mg/dL (7-18); BUN/Creat Ratio 12.8 RATIO (10-20); Calcium,Total 8.5 mg/dL (8.5-10.1); Chloride 106 mmol/L (98-107); Creatinine, Serum 0.47 mg/dL (0.55-1.02); EST Glomerular Filtration Rate 170 mL/min (>60); Est Glom Filt Rate - Afr Amer 206 mL/min (>60); Globulin 3.8 g/dL (2.2-4.2); Glucose 90 mg/dL (74-106); Potassium 3.5 mmol/L (3.5-5.1); Protein, Total 6.5 g/dL (6.4-8.2); Sodium Level 138 mmol/L (136-145)
== END | disposition home or self-care (01) ==
PROVIDERS: Referring Provider Nurse Practitioner Women's Health; Visit Provider Nurse Practitioner Women's Health
DX: H53.9 Unspecified visual disturbance (principal); O09.299 Supervision of pregnancy with other poor reproductive or obstetric history, unspecified trimester; Z3A.00 Weeks of gestation of pregnancy not specified
CPT/HCPCS: 36415; 80053; 82570; 84156; 85025

== ENCOUNTER → 2022-08-27 | Outpatient (CLI) | payer MEDICAID, SELFPAY ==
[2022-08-27 09:34] LABS: Absolute Lymphocyte Count 1.42 X10^3/uL (0.83-4.51); Absolute Neutrophil Count 4.1 X10^3/uL (2.0-7.7); Basophil# 0.01 X10^3/uL; Basophil% 0.2 % (0-1); Eosinophil# 0.06 X10^3/uL; Hematocrit 36.5 % (37-47); Hemoglobin 12.3 g/dL (12.0-15.0); Lymphocyte # 1.42 X10^3/ul (0.83-4.51); Mean Corp Hgb Conc 33.7 g/dL (32-36); Mean Corpuscular Hgb 31.3 pg (27.0-32.0); Mean Corpuscular Volume 92.9 fL (81-99); Mean Platelet Vol. 8.5 fl (6.2-12.0); Monocyte# 0.33 X10^3/uL; Monocyte% 5.6 % (0-10); NRBC Flagged by Analyzer 0 % (0-5); Neutrophil # 4.08 X10^3/uL (2.7-7.7); Neutrophil % 68.9 % (47-70); Platelet Count 183 K/mm3 (150-450); RBC Distribution Width SD 43.2 fl (35.1-43.9); Red Blood Count 3.93 M/mm3 (4.2-5.4); White Blood Count 5.9 K/mm3 (4.4-11.0)
[2022-08-27 10:03] LABS: Glucose Challenge Gest 1H 50g 98 mg/dL (70-140)
== END | disposition home or self-care (01) ==
LOC: PAVLAB 08:56 → LAB 09:05
PROVIDERS: Referring Provider Nurse Practitioner Women's Health; Visit Provider Nurse Practitioner Women's Health
DX: Z13.1 Encounter for screening for diabetes mellitus (principal); O09.90 Supervision of high risk pregnancy, unspecified, unspecified trimester; Z3A.00 Weeks of gestation of pregnancy not specified
CPT/HCPCS: 36415; 82950; 85025

== ENCOUNTER 2022-10-09 14:30 | Outpatient (CLI) | payer MEDICAID, SELFPAY ==
[2022-10-09] VITALS (9 sets, daily range): BP systolic 105–115; BP diastolic 53–60; PULSE 75–95; TEMP 36.5; BMI 30.4
[2022-10-09 15:28] LABS: Hematocrit 37.5 % (37-47); Hemoglobin 12.2 g/dL (12.0-15.0); Mean Corp Hgb Conc 32.5 g/dL (32-36); Mean Corpuscular Hgb 29.3 pg (27.0-32.0); Mean Corpuscular Volume 90.1 fL (81-99); Mean Platelet Vol. 8.9 fl (6.2-12.0); Platelet Count 194 K/mm3 (150-450); RBC Distribution Width CV 13.5 % (11.6-14.6); RBC Distribution Width SD 44.3 fl (35.1-43.9); Red Blood Count 4.16 M/mm3 (4.2-5.4); White Blood Count 9.9 K/mm3 (4.4-11.0)
[2022-10-09 15:54] LABS: AST(SGOT) 11 U/L (15-37); Alanine Aminotransfer ALT/SGPT 12 U/L (13-56); Creatinine, Serum 0.46 mg/dL (0.55-1.02); EST Glomerular Filtration Rate 173 mL/min (>60); Est Glom Filt Rate - Afr Amer 209 mL/min (>60); Estimated Creatinine Clearance 133.12 ml/min; Uric Acid 4.2 mg/dL (2.6-6.0)
[2022-10-09 16:04] LABS: Protein, Urine (Random) 7.4 mg/dL (<11.9); Protein:Creat Ratio 180 mg/g CRE (0-200)
--- NOTE | 2022-10-09 17:17 | NURSING ---
Physician exam completed in office prior to arrival to unit. Physician sent patient down to unit.
--- NOTE | 2022-10-09 17:56 | OB.TRI.HP_ITS ---
HPI - General HPI Narrative RAISA HERNANDEZ, is a 27 F who presents to L&D at 34 weeks 1 day for headache and not feeling well. She thinks her bp is high. readings on L&D show low normal blood pressures and PIH labs collected are normal. Maternal Data Information BEE Calculator Estimated Delivery Date Method Current WG Current Estimate 11/19/22 LMP (Certain) 34w 1d PFSH PFSH Medical History Abnormal thyroid function test Anxiety and depression Hx of depression, currently Home Medications ondansetron 4 mg disintegrating tablet 4 mg PO Q4H PRN nausea and vomiting #60 tabs 04/16/22 [Rx Last Taken Unknown] prenat.vits,maddison,[id number] 1 tab PO DAILY 04/25/22 [History Last Taken Unknown] Allergy/AdvReac Type Severity Reaction Status Date / Time No Known Allergies Allergy Verified 10/09/22 14:51 Surgical History History of vacuum extraction assisted delivery Social History adopted: No household members: significant other and children housing: house number of children: 3 current occupational status: employed 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 current occupational exposures/hazards: No pets and animals: Yes pets and animals: dog(s) history of recent travel: No sexually active: Yes Smoking Status: Never smoker second hand exposure: No alcohol intake: never substance use type: does not use well-balanced diet: daily or most days caffeine: No eating out: 1-3 times/week what type of physical activity do you participate in: walking frequency: 5-6 times per week duration: 30-45 minutes/day aliza/voodoo: None seatbelt use: always do you feel safe at home: Yes additional social history: 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 Date Name GA/Weeks Outcome Route Bth Weight Infant Gen Labor Lgth Anesthesia Del Locatn Provider FOB Unknown 2013 Mark 39 live - full term 7lbs 8oz Female epidural Joe Huerta Unknown 2016 Aleksey 38 live - full term 6lbs 7oz Male epidural Joe Reese 10/16/19 Dashawn 37 live - full term 6lbs 6oz Female epidural [facility] Delivery Date: Last Updated by: Carrie De Oliveira Vacuum delivery, episomtomy Delivery Date: Last Updated by: Carrie De Oliveira No complications Delivery Date: 10/16/19 Last Updated by: Carrie De Oliveira pre eclampsia Visit Details Expected Delivery Route/Plan Labor Preferences- CB/BF classes: declines labor support person:Rodrick labor intervention preferences: [] pain management options preferred: epidural cut cord/dad catch: yes : plans PP control planned: discussed discussed possible routes of delivery and associated risks: [] special requests: [] Plans Covid status: discussed Flu vaccine: declines Tdap vaccine: obtained Rhogam: n/a LARC form signed: yes Problem list reviewed and updated with the most current plan of care details and appropriate orders placed. Relevant counseling for the gestational age provided. Continue routine care and follow up unless otherwise noted in visit notes/problem list details OB Flowsheet Initial Weight: Not Recorded Date -?-?-?-?-?-?-?-?-?-?-?-?- EGA Weight BP Urine Prot -?-?-?-?-?-?-?-?-?-?-?-?- Glucose FHR FuHt Pres Dilation -?-?-?-?-?-?-?-?-?-?-?-?- Effaced St Visit Note 04/25/22 -?-?-?-?-?-?-?-?-?-?-?-?- 10w 2d 150 lb 112/62 -?-?-?-?-?-?-?-?-?-?-?-?- 189 -?-?-?-?-?-?-?-?-?-?-?-?- JV-CRL consisten t with LMP. pap today caused a small amount of spotting. pt reassured. Has hyperemesis and zofran only helping minimally. precautions given for IV treatment as needed. 05/23/22 -?-?-?-?-?-?-?-?-?-?-?-?- 14w 2d 147 lb 2 oz 120/77 Nega tive -?-?-?-?-?-?-?-?-?-?-?-?- Negative 150 -?-?-?-?-?-?-?-?-?-?-?-?- JV- no lof , vag inal bleeding, or cramping. CRL consistent with established ga. no bleeding and nausea improving. formal [facility] with [facility]. 06/19/22 -?-?-?-?-?-?-?-?-?-?-?-?- 18w 1d 144 lb 8 oz 123/69 Nega tive -?-?-?-?-?-?-?-?-?-?-?-?- Negative 145 -?-?-?-?-?-?-?-?-?-?-?-?- SM- no vb crampi ngnausea improving eating more now. 07/18/22 -?-?-?-?-?-?-?-?-?-?-?-?- 22w 2d 147 lb 2 oz 110/74 Trac e -?-?-?-?-?-?-?-?-?-?-?-?- Negative 147 -?-?-?-?-?-?-?-?-?-?-?-?- MH-on antibiotic for UTI. No VB. Good FM. Rpt thyroid labs today. Has not yet schedule with endo/will check on that. Rpt US 08/07. Declines flu vaccine 08/16/22 -?-?-?-?-?-?-?-?-?-?-?-?- 26w 3d 151 lb 2 oz 114/68 Nega tive -?-?-?-?-?-?-?-?-?-?-?-?- 250 g/dL 154 -?-?-?-?-?-?-?-?-?--?-?-?- MH-NO VB, LOF an d good FM. Not feeling well, nausea over the last week. seeing sparkles. No headache. Note small glucose in urine/had fruit earlier. Will get pre E labs. GCT early next week. 08/27/22 -?-?-?-?-?-?-?-?-?-?-?-?- 28w 0d 152 lb 6 oz 116/71 -?-?-?-?-?-?-?-?-?-?-?-?- 150 29 -?-?-?-?-?-?-?-?-?-?-?-?- LC- no vb,ctx,lo f. good fm. 28 week labs obtained today.recovering from stomach virus over weekend. LC- no vb,ctx,lof. good fm. normal 28 week labs.recovering from stomach virus over weekend. 09/12/22 -?-?-?-?-?-?-?-?-?-?-?-?- 30w 2d 152 lb 4 oz 102/68 Nega tive -?-?-?-?-?-?-?-?-?-?-?-?- Negative 146 30 -?-?-?-?-?-?-?-?--?-?-?-?- MH-No VB, LOF. G ood FM. No concerns. [facility] 10/09/22 -?-?-?-?-?-?-?-?-?-?-?-?- 34w 1d 157 lb 4 oz 130/84 Nega tive -?-?-?-?-?-?-?-?-?-?-?-?- Negative 145 35 -?-?-?-?-?-?-?-?-?-?-?-?- JV- pt is being seen urgently today for headache, visual changes, and feeling like she is going to pass out. She has a h/o pre-e and is worried she is experiencing this again. JV- pt is being seen urgentl y today for headache, visual changes, and feeling like she is going to pass out. She has a h/o pre-e and is worried she is experiencing this again. sending to L&D now for assessment. ROS Constitutional Constitutional: Reports systems reviewed and no addt'l complaints, except as documented Gastrointestinal Gastrointestinal: Denies bloating, constipation, cramping, diarrhea, nausea or vomiting Genitourinary Genitourinary: Reports other Details: Denies vaginal odor, vaginal bleeding, or vaginal discharge ; Denies difficulty urinating or flank pain NST FHR Rate Baby A Baseline: 130 Variability:: Moderate Accelerations:: 15 x 15 and 10 x 10 Decelerations:: None NST Reactive:: Yes FHR Category:: Category I Assessment & Plan (1) Glucosuria: COMMENT: may be diet related. GCT 98 on 08/27/22 (2) Vision changes: COMMENT: pre E labs (3) Abnormal thyroid function test: COMMENT: repeat TSH in 2 wks Done 07/18: Endo if still abnormal. Repeat Labs normal. (4) Abnormal Pap smear of cervix: COMMENT: repeat pap in 1 year (5) Hx of pre-eclampsia in prior , currently : COMMENT: Pre eclampsia with last (6) Supervision of high risk , antepartum: COMMENT: [id number], BEE 11/19/22, boy, Aleksey Back Kinsley Fiance Kevin (7) : QUALIFIERS: Weeks of gestation: 34 weeks Qualified Code(s): Z3A.34 - 34 weeks gestation of COMMENT: anatomy nl,repeat views in 4 wks(08/07) nl views and growth 42%, discussed NIPT & Carrier testing, NIPT low risk PLAN: headache in - pih ruled out. pt to call if symptoms worsen. recommend tylenol for headaches and increase fluid intake. Charges/Coding Multi Select Codes Urinary/Genital Urinary/Genital CPT Codes: 63917-55 non-stress test Interp
== END 2022-10-09 17:15 | disposition home or self-care (01) ==
LOC: WPOUT 14:38 → WP 14:39
PROVIDERS: Referring Provider Obstetrics & Gynecology; Visit Provider Obstetrics & Gynecology
DX: O26.893 Other specified pregnancy related conditions, third trimester (principal); H53.9 Unspecified visual disturbance; R87.619 Unspecified abnormal cytological findings in specimens from cervix uteri; R51.9 Headache, unspecified; Z3A.34 34 weeks gestation of pregnancy
CPT/HCPCS: 36415; 59025; 59050; 82565; 82570; 84156; 84450; 84460; 84550; 85027; 99221; G0378

== ENCOUNTER → 2022-11-02 | Outpatient (CLI) | payer MEDICAID, SELFPAY | END | disposition home or self-care (01) | LOC: LABSPEC 13:46 | PROVIDERS: Referring Provider Obstetrics & Gynecology; Visit Provider Obstetrics & Gynecology | DX: Z34.90 Encounter for supervision of normal pregnancy, unspecified, unspecified trimester (principal) | CPT/HCPCS: 87081 ==

== ENCOUNTER 2022-11-11 07:05 | Inpatient (IN) | payer MEDICAID, SELFPAY ==
[2022-11-11] VITALS (29 sets, daily range): BP systolic 102–139; BP diastolic 54–85; PULSE 71–120; RESP 16–18; TEMP 36.1–37.2; O2SAT 85–100; BMI 26.9
[2022-11-11] MEDS: LACTATED RINGERS 500 ML 999 ML IV (07:23)
[2022-11-11 07:34] LABS: Absolute Lymphocyte Count 2.09 X10^3/uL (0.83-4.51); Absolute Neutrophil Count 6.6 X10^3/uL (2.0-7.7); Basophil# 0.03 X10^3/uL; Basophil% 0.3 % (0-1); Eosinophil# 0.09 X10^3/uL; Hematocrit 39.9 % (37-47); Hemoglobin 13.1 g/dL (12.0-15.0); Lymphocyte # 2.09 X10^3/ul (0.83-4.51); Lymphocyte % 22.4 % (19-41); Mean Corp Hgb Conc 32.8 g/dL (32-36); Mean Corpuscular Hgb 28.8 pg (27.0-32.0); Mean Corpuscular Volume 87.7 fL (81-99); Mean Platelet Vol. 9.6 fl (6.2-12.0); Monocyte% 4.3 % (0-10); NRBC Flagged by Analyzer 0 % (0-5); Neutrophil # 6.63 X10^3/uL (2.7-7.7); Neutrophil % 71.2 % (47-70); Platelet Count 189 K/mm3 (150-450); RBC Distribution Width SD 44.1 fl (35.1-43.9); Red Blood Count 4.55 M/mm3 (4.2-5.4); White Blood Count 9.3 K/mm3 (4.4-11.0)
[2022-11-11] MEDS: Lactated Ringers 1,000 ML 200 ML IV (07:55)
[2022-11-11] MEDS: fentaNYL-bupivacaine (epidural) 100 ML BAG EPIDURAL (08:15)
[2022-11-11] MEDS: Oxytocin 10 UNITS/ML Vial IM (09:00)
--- NOTE | 2022-11-11 09:15 | HP.PCM.OB_ITS ---
HPI - General General Date of Admission: 11/11/22 HPI Narrative RAISA HERNANDEZ, is a 27 F who presents IAL 6 cm dilated wanting her epidural, regular ctx no vb lof admits good fm. Maternal Data Information BEE Calculator Estimated Delivery Date Method Current WG Current Estimate 11/19/22 LMP (Certain) 38w 6d PFSH PFSH Medical History Abnormal thyroid function test Anxiety and depression Hx of depression, currently Home Medications prenat.vits,maddison,bet-[id number] 1 tab PO DAILY 04/25/22 [History Last Taken Unknown] Allergy/AdvReac Type Severity Reaction Status Date / Time No Known Allergies Allergy Verified 11/08/22 09:45 Surgical History History of vacuum extraction assisted delivery Social History adopted: No household members: significant other and children housing: house number of children: 3 current occupational status: employed current occupation: [employer] current occupational exposures/hazards: No pets and animals: Yes pets and animals: dog(s) history of recent travel: No sexually active: Yes Smoking Status: Never smoker second hand exposure: No alcohol intake: never substance use type: does not use well-balanced diet: daily or most days caffeine: No eating out: 1-3 times/week what type of physical activity do you participate in: walking frequency: 5-6 times per week duration: 30-45 minutes/day aliza/orthodox: None seatbelt use: always do you feel safe at home: Yes additional social history: 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 Date Name GA/Weeks Outcome Route Bth Weight Infant Gen Labor Lgth Anesthesia Del Locatn Provider FOB Unknown 2013 Mark 39 live - full term 7lbs 8oz Female epidural Joe Huerta Unknown 2016 Ryder 38 live - full term 6lbs 7oz Male epidural Joe Reese 10/16/19 Dashawn 37 live - full term 6lbs 6oz Female epidural [facility] Delivery Date: Last Updated by: Carrie De Oliveira Vacuum delivery, episomtomy Delivery Date: Last Updated by: Carrie De Oliveira No complications Delivery Date: 10/16/19 Last Updated by: Carrie De Oliveira pre eclampsia Visit Details Expected Delivery Route/Plan Labor Preferences- CB/BF classes: declines labor support person:Rodrick labor intervention preferences: [] pain management options preferred: epidural cut cord/dad catch: yes : plans PP control planned: discussed discussed possible routes of delivery and associated risks: [] special requests: [] Plans Covid status: discussed Flu vaccine: declines Tdap vaccine: obtained Rhogam: n/a LARC form signed: yes Problem list reviewed and updated with the most current plan of care details and appropriate orders placed. Relevant counseling for the gestational age provided. Continue routine care and follow up unless otherwise noted in visit notes/problem list details OB Flowsheet Initial Weight: Not Recorded Date -?-?-?-?-?-?-?-?-?-?-?-?- EGA Weight BP Urine Prot -?-?-?-?-?-?-?-?-?-?-?-?- Glucose FHR FuHt Pres Dilation -?-?-?-?-?-?-?-?-?-?-?-?- Effaced St Visit Note 04/25/22 -?-?-?-?-?-?-?-?-?-?-?-?- 10w 2d 150 lb 112/62 -?-?-?-?-?-?-?-?-?-?-?-?- 189 -?-?-?-?-?-?-?-?-?-?-?-?- JV-CRL consisten t with LMP. pap today caused a small amount of spotting. pt reassured. Has hyperemesis and zofran only helping minimally. precautions given for IV treatment as needed. 05/23/22 -?-?-?-?-?-?-?-?-?-?-?-?- 14w 2d 147 lb 2 oz 120/77 Nega tive -?-?-?-?-?-?-?-?-?-?-?-?- Negative 150 -?-?-?-?-?-?-?-?-?-?-?-?- JV- no lof , vag inal bleeding, or cramping. CRL consistent with established ga. no bleeding and nausea improving. formal scan ordered with [facility]. 06/19/22 -?-?-?-?-?-?-?-?-?-?-?-?- 18w 1d 144 lb 8 oz 123/69 Nega tive -?-?-?-?-?-?-?-?-?-?-?-?- Negative 145 -?-?-?-?-?-?-?-?-?-?-?-?- SM- no vb crampi ngnausea improving eating more now. 07/18/22 -?-?-?-?-?-?-?-?-?-?-?-?- 22w 2d 147 lb 2 oz 110/74 Trac e -?-?-?-?-?-?-?-?-?-?-?-?- Negative 147 -?-?-?-?-?-?-?-?-?-?-?-?- MH-on antibiotic for UTI. No VB. Good FM. Rpt thyroid labs today. Has not yet schedule with endo/will check on that. Rpt US 08/07. Declines flu vaccine 08/16/22 -?-?-?-?-?-?-?-?-?-?-?-?- 26w 3d 151 lb 2 oz 114/68 Nega tive -?-?-?-?-?-?-?-?-?-?-?-?- 250 g/dL 154 -?-?-?-?-?-?-?-?-?-?-?-?- MH-NO VB, LOF an d good FM. Not feeling well, nausea over the last week. seeing sparkles. No headache. Note small glucose in urine/had fruit earlier. Will get pre E labs. GCT early next week. 08/27/22 -?-?-?-?-?-?-?-?-?-?-?-?- 28w 0d 152 lb 6 oz 116/71 -?-?-?-?-?-?-?-?-?-?-?-?- 150 29 -?-?-?-?-?-?-?-?-?-?-?-?- LC- no vb,ctx,lo f. good fm. 28 week labs obtained today.recovering from stomach virus over weekend. LC- no vb,ctx,lof. good fm. normal 28 week labs.recovering from stomach virus over weekend. 09/12/22 -?-?-?-?-?-?-?-?-?-?-?-?- 30w 2d 152 lb 4 oz 102/68 Nega tive -?-?-?-?-?-?-?-?-?-?-?-?- Negative 146 30 -?-?-?-?-?-?-?-?-?-?-?-?- MH-No VB, LOF. G ood FM. No concerns. [facility] 10/09/22 -?-?-?-?-?-?-?-?-?-?-?-?- 34w 1d 157 lb 4 oz 130/84 Nega tive -?-?-?-?-?-?-?-?-?-?-?-?- Negative 145 35 -?-?-?-?-?-?-?-?-?-?-?-?- JV- pt is being seen urgently today for headache, visual changes, and feeling like she is going to pass out. She has a h/o pre-e and is worried she is experiencing this again. JV- pt is being seen urgentl y today for headache, visual changes, and feeling like she is going to pass out. She has a h/o pre-e and is worried she is experiencing this again. sending to L&D now for assessment. 11/02/22 -?-?-?-?-?-?-?-?-?-?-?-?- 37w 4d 161 lb 122/80 Negative -?-?-?-?-?-?-?-?-?-?-?-?- Negative 140 37 Cephalic 2 .5 -?-?-?-?-?-?-?-?-?-?-?-?- 70 -1 SM- no vb lof good fm irregular ctx 11/08/22 -?-?-?-?-?-?-?-?-?-?-?-?- 38w 3d 162 lb 6 oz 119/76 Nega tive -?-?-?-?-?-?-?-?-?-?-?-?- Negative 137 40 Cephalic 4 -?-?-?-?-?-?-?-?-?-?-?-?- 70 -2 JV- pt is a good candidate for 39 week IOL. Induction set up for saturday. No lof, vaginal bleeding, or dec fm. 11/11/22 -?-?-?-?-?-?-?-?-?-?-?--?- 38w 6d 162 lb 2 oz 162 lb 3.2 oz 139/85 139/85 104/54 104/55 110/69 -?-?-?-?-?-?-?-?-?-?-?-?- -?-?-?-?-?-?-?-?-?-?-?-?- NST FHR Rate Baby A Baseline: 140 Variability:: Moderate Accelerations:: 15 x 15 Decelerations:: None NST Reactive:: Yes FHR Category:: Category I Uterine Activity:: q2-3 ROS Constitutional Constitutional: Reports systems reviewed and no addt'l complaints, except as documented ENT HEENT: Reports systems reviewed and no addt'l complaints, except as documented Cardiovascular Cardiovascular: Reports systems reviewed and no addt'l complaints, except as documented Respiratory/Chest Respiratory/Chest: Reports systems reviewed and no addt'l complaints, except as documented Gastrointestinal Gastrointestinal: Reports systems reviewed and no addt'l complaints, except as documented and nausea; Denies abdominal pain Genitourinary Genitourinary: Reports systems reviewed and no addt'l complaints, except as documented, contractions Details: present and frequency (regular ) and movement Details: present Musculoskeletal Musculoskeletal: Reports systems reviewed and no addt'l complaints, except as documented Integumentary Integumentary: Reports as per HPI Neurologic Neurologic: Reports systems reviewed and no addt'l complaints, except as documented Endocrine Endocrinology: Reports systems reviewed and no addt'l complaints, except as documented Vital Signs Vital Signs Vital Signs: 11/11/22 07:21 11/11/22 07:21 11/11/22 07:21 Temperature Temperature Source Temporal Pulse Rate 77 Blood Pressure 139/85 H BP Systolic 139 BP Diastolic 85 Pulse Ox 11/11/22 07:21 11/11/22 07:21 11/11/22 08:01 Temperature 97.3 F L Temperature Source Pulse Rate 79 Blood Pressure BP Systolic BP Diastolic Pulse Ox 98 11/11/22 08:01 11/11/22 08:06 11/11/22 08:06 Temperature Temperature Source Pulse Rate 76 Blood Pressure BP Systolic BP Diastolic Pulse Ox 97 97 11/11/22 07:02 11/11/22 07:02 11/11/22 07:02 Temperature Temperature Source Temporal Pulse Rate 79 Blood Pressure 139/85 H BP Systolic 139 BP Diastolic 85 Pulse Ox 11/11/22 07:02 11/11/22 07:02 11/11/22 08:15 Temperature 98.7 F Temperature Source Pulse Rate 108 H Blood Pressure BP Systolic BP Diastolic Pulse Ox 98 11/11/22 08:15 11/11/22 08:20 11/11/22 08:20 Temperature Temperature Source Pulse Rate 120 H Blood Pressure BP Systolic BP Diastolic Pulse Ox 98 100 11/11/22 08:21 11/11/22 08:21 11/11/22 08:24 Temperature Temperature Source Pulse Rate 115 H 111 H Blood Pressure 104/54 L BP Systolic 104 BP Diastolic 54 Pulse Ox 11/11/22 08:24 11/11/22 08:24 11/11/22 08:25 Temperature Temperature Source Temporal Pulse Rate 104 H Blood Pressure BP Systolic BP Diastolic Pulse Ox 91 11/11/22 08:25 11/11/22 08:24 11/11/22 08:28 Temperature 97.5 F L Temperature Source Pulse Rate Blood Pressure 104/55 L BP Systolic 104 BP Diastolic 55 Pulse Ox 99 11/11/22 08:28 11/11/22 08:30 11/11/22 08:30 Temperature Temperature Source Pulse Rate 110 H 104 H Blood Pressure BP Systolic BP Diastolic Pulse Ox 100 11/11/22 08:33 11/11/22 08:33 11/11/22 08:35 Temperature Temperature Source Pulse Rate 114 H 110 H Blood Pressure BP Systolic BP Diastolic Pulse Ox 85 11/11/22 08:35 11/11/22 09:06 11/11/22 09:06 Temperature Temperature Source Pulse Rate 102 H Blood Pressure 110/69 BP Systolic 110 BP Diastolic 69 Pulse Ox 99 11/11/22 09:07 11/11/22 09:07 11/11/22 09:07 Temperature Temperature Source Temporal Pulse Rate 93 Blood Pressure BP Systolic BP Diastolic Pulse Ox 100 11/11/22 09:07 11/11/22 09:08 11/11/22 09:08 Temperature 98.5 F Temperature Source Pulse Rate 82 Blood Pressure BP Systolic BP Diastolic Pulse Ox 99 Weight Weight: 162 lb 3.2 oz Body Mass Index (BMI) 26.9 Physical Exam Const alert, oriented x3 and healthy appearing Constitutional Narrative: uncomfortable with contractions HEENT normocephalic and moist oral mucous membranes Head and Scalp: atraumatic Neck full ROM, no lymphadenopathy, supple and thyroid normal General: trachea midline Thyroid: thyroid normal Lymph Lymphatic: no lymphadenopathy noted Chest inspection of chest normal Resp normal respiratory effort Cardio regular rate GI normal to inspection, nondistended, normoactive bowel sounds, soft to palpation and non-tender Inspection: gravid external exam normal Bimanual Exam - Vag & Uterus: uterus non-tender Manual OB Exam: estimated gestational size appropriate, presentation cephalic, dilated, effaced and station Extremity normal to inspection General Extremity: Negative for edema Skin no rashes or lesions noted Neuro deep tendon reflexes 2+ bilaterally Motor Exam: strength 5/5 throughout and clonus absent Psych mental status grossly normal Labs Labs Labs: Blood Type A POSITIVE Antibody Screen NEGATIVE Hct 39.9 % (37-47) Hgb 13.1 g/dL (12.0-15.0) Pap Smear Negative Syphilis Total Ab Non-reactive Rubella IgG Antibody Reactive (Nonreactive) Hep Bs Antigen Non-Reactive (Nonreactive) Chlamydia DNA (GÉNESIS) Negative (Negative) Neisseria gonorrhoeae DNA (GÉNESIS) Negative (Negative) HIV 1&2 Antibody Non-Reactive (Nonreactive) Glucose 1 Hr 50 gm 98 mg/dL (70-140) Rhogam given: No Miscellaneous Test Assessment & Plan (1) Abnormal thyroid function test: COMMENT: repeat TSH in 2 wks Done 07/18: Endo if still abnormal. Repeat Labs normal. (2) Abnormal Pap smear of cervix: COMMENT: repeat pap in 1 year (3) Hx of pre-eclampsia in prior , currently : COMMENT: Pre eclampsia with last (4) Supervision of high risk , antepartum: COMMENT: [id number], BEE 11/19/22, boy, Aleksey Back, Dashawn Mensah (5) : QUALIFIERS: Weeks of gestation: 38 weeks Qualified Code(s): Z3A.38 - 38 weeks gestation of COMMENT: GBS neg. anatomy nl,repeat views in 4 wks(08/07) nl views and growth 42%, discussed NIPT & Carrier testing, NIPT low risk (6) Active labor at term: PLAN: Plan Patient presents IAL, plan expectant management for , pitocin/AROM PRN if needed. Pain management: plans epidural. GBS neg Management of any complications: none I have reviewed the [facility] and made any clinically relevant updates.
--- NOTE | 2022-11-11 09:19 | EX.PCM.OBRPT ---
Assessment & Plan (1) : QUALIFIERS: Weeks of gestation: 38 weeks Qualified Code(s): Z3A.38 - 38 weeks gestation of COMMENT: GBS neg. anatomy nl,repeat views in 4 wks(08/07) nl views and growth 42%, discussed NIPT & Carrier testing, NIPT low risk (2) Supervision of high risk , antepartum: COMMENT: [id number], BEE 11/19/22, boy, Aleksey Back Kinsley Fiance Kevin (3) Hx of pre-eclampsia in prior , currently : COMMENT: Pre eclampsia with last (4) Abnormal Pap smear of cervix: COMMENT: repeat pap in 1 year (5) Abnormal thyroid function test: COMMENT: repeat TSH in 2 wks Done 07/18: Endo if still abnormal. Repeat Labs normal. (6) Active labor at term: (7) Vaginal delivery: COMMENT: SM IAL boy 39 Maternal Data Information BEE Calculator Estimated Delivery Date Method Current WG Current Estimate 11/19/22 LMP (Certain) 38w 6d Vaginal Delivery Operative Information Date of Procedure: 11/11/22 Pre-Operative Diagnosis: IAL Post-Operative Diagnosis: same Surgery / Procedure Performed: Spontaneous Vaginal Delivery Type of Anesthesia: Epidural Special Medications: none Estimated Blood Loss: 100 Fluids Replaced: crystalloid Findings Description of Procedure: Patient began pushing and delivered the head in the JANUSZ presentation. The head was delivered atraumatically. The anterior and posterior shoulders delivered without complication followed by the rest of the and the infant was placed on the maternal abdomen. Delayed cord clamping was employed for approximately 60 seconds. Cord was clamped and cut and gentle traction was applied to the cord and the placenta delivered spontaneously immediately following it was noted to be intact with three-vessel cord. The perineum and vagina were inspected and noted to have a small first degree laceration repaired in the usual fashion with 3-0 rapide. EBL was 100 cc. Patient and infant tolerated delivery well. Presentation: JANUSZ Amniotic Membrane Rupture Type: Spontaneous Amniotic Fluid Description: Clear Placental Delivery Description: Spontaneous Placenta Disposition: [facility] Cord Vessel Description: 3 Vessels Cord Entanglement: None Delayed Cord Clamping: Yes Post Vaginal Delivery Medications Given After Delivery: IV Pitocin Episiotomy Description: None Laceration: Perineal Extension/lac and 1st degree Complication Complications: None Procedures Urinary/Genital [id number]: [id number] Vaginal Delivery+PP Care([facility])
--- NOTE | 2022-11-11 09:21 | DCINST_ITS ---
Discharge Instructions Diet Discharge Diet: No restrictions Activity Discharge Activity: Return to Normal Activity, May Drive, May Shower and May Take a Tub Bath (in 4 weeks) May resume sexual activity in: 6-8 weeks (after seen by OB provider) Weight Bearing Status: Full weight bearing Lifting Restrictions: none Dressing / Incision Call your doctor if you observe: Fever of 101 or Higher, Inability to urinate, Using more than 1 pad per hour (for more than 2 hours in a row or more), Shortness of breath, Dizziness, Chest pain and - (headache not controlled with tylenol, change in vision) Follow Up Care When: in 6 weeks for visit, call the office to make the appointment. If you had elevated blood pressures call the office to be seen within 1 week. Test Results: Test results from this visit will be discussed in further detail at your follow- up appointment, if applicable. Discharge Plan Admission Admit Date/Time: 11/11/22 07:05 Attending Provider: Aracelis Lynn Primary Care Provider: Care Physician,Eveline Primary Discharge Orders/Prescriptions Prescriptions: No Action prenat.vits,maddison,[id number] Tablet 1 tab PO DAILY Referrals / Follow Up: Care Physician,No Primary [Primary Care Provider] - Disposition Disposition (needs filled in before D/C Order can be placed): Home, Self Care
[2022-11-11] MEDS: Prenatal Vits Tablet 1 TABLET PO (13:44)
[2022-11-11] MEDS: Acetaminophen 500 MG Tablet 1000 MG PO (15:11)
[2022-11-12] MEDS: Naproxen 500 MG Tablet PO (04:42)
[2022-11-12 04:50] VITALS: BP 118/76; PULSE 70; RESP 18; TEMP 36.1; O2SAT 97
--- NOTE | 2022-11-12 08:07 | PCM.PN.OB ---
Subjective Subjective Patient doing well without complaints. Tolerating PO. Ambulating and voiding without difficulty. Feeding well. Denies chest pain, shortness of breath, calf pain/swelling, fevers, chills, lightheadedness. Objective Data Objective Data Vital Signs: Vital Signs Temp Pulse Resp BP Pulse Ox O2 Del Method 97 F L 70 18 118/76 97 Room Air 11/12/22 04:50 11/12/22 04:50 11/12/22 04:50 11/12/22 04:50 11/12/22 04:50 11/12/22 04:50 Oxygen Delivery Method Room Air Weight: 162 lb 2 oz Body Mass Index (BMI) 26.9 Intake & Output: Intake and Output for Last 24 Hours 11/10/22 11/11/22 11/12/22 23:59 23:59 23:59 Intake Total 766.67 / 766.67 Output Total 550 / 550 Balance 216.67 / 216.67 Lab / Micro Data Result Diagrams: 11/11/22 07:23 Labs: Laboratory Results - last 24 hr 11/11/22 07:23: Blood Type A POSITIVE, Antibody Screen NEGATIVE Physical Exam Const alert, oriented x3 and no apparent distress Eyes PERRL Lymph Lymphatic: no lymphadenopathy noted Resp normal respiratory effort, normal air movement and no retractions Cardio regular rate and regular rhythm GI GI Narrative: fundus firm 1 below u. mild lochia, no clots Extremity normal to inspection and full ROM Skin no rashes or lesions noted Psych mental status grossly normal Assessment & Plan (1) Vaginal delivery: COMMENT: TIMOTHY IAL boy 39 PLAN: s/p PPD # 1 1. routine post delivery care 2. breast feeding- support given 3. rh positive 4. rubella immune 5. d/c home today
[2022-11-12 08:22] VITALS: BP 119/70; PULSE 59; RESP 16; TEMP 36.2; O2SAT 98
[2022-11-12 14:06] VITALS: BP 109/64; PULSE 68; RESP 15; TEMP 36.3; O2SAT 98
== END 2022-11-12 14:20 | disposition home or self-care (01) | DRG 560 ==
LOC: WPOUT 07:11 → WP 07:11
PROVIDERS: Admitting Provider Obstetrics & Gynecology; Referring Provider Obstetrics & Gynecology; Visit Provider Obstetrics & Gynecology
DX: O70.0 First degree perineal laceration during delivery (principal); Z37.0 Single live birth; Z3A.39 39 weeks gestation of pregnancy
CPT/HCPCS: 59025; 59050; 85025; 86850; 86900; 86901; 99221; J7120; G0378

== ENCOUNTER → 2023-06-06 | Outpatient (CLI) | payer MEDICAID, SELFPAY ==
[2023-06-12 20:55] LABS: HPV Reflexed? NOT INDICATED
== END | disposition home or self-care (01) ==
LOC: LABSPEC 16:50
PROVIDERS: Visit Provider Obstetrics & Gynecology
DX: Z12.4 Encounter for screening for malignant neoplasm of cervix (principal)
CPT/HCPCS: 88175; G0145

== ENCOUNTER → 2024-12-25 | Outpatient (CLI) | payer MEDICAID, SELFPAY ==
[2024-12-25 17:18] LABS: Protein, Urine (Random) 8.8 mg/dL (0.0-12.0); Protein:Creat Ratio 264 mg/g CRE (0-200)
[2024-12-28 21:07] LABS: Chlamydia By Nucleic Acid AMP Negative (Negative); Gonococcus By Nucleic Acid AMP Negative (Negative)
== END | disposition home or self-care (01) ==
LOC: LABSPEC 14:31
PROVIDERS: Referring Provider Obstetrics & Gynecology; Visit Provider Obstetrics & Gynecology
DX: O29 Complications of anesthesia during pregnancy (principal); Z3A.00 Weeks of gestation of pregnancy not specified
CPT/HCPCS: 82570; 84156; 87086; 87088; 87491; 87591

== ENCOUNTER → 2025-01-11 | Outpatient (CLI) | payer MEDICAID, SELFPAY ==
[2025-01-11 14:57] LABS: Absolute Lymphocyte Count 1.82 X10^3/uL (0.83-4.51); Absolute Neutrophil Count 5.1 X10^3/uL (2.0-7.7); Basophil# 0.03 X10^3/uL; Basophil% 0.4 % (0-1); Eosinophil# 0.11 X10^3/uL; Eosinophils% 1.5 % (0-5); Hematocrit 39.2 % (37-47); Hemoglobin 13.6 g/dL (12.0-15.0); Lymphocyte # 1.82 X10^3/ul (0.83-4.51); Lymphocyte % 24.6 % (19-41); Mean Corp Hgb Conc 34.7 g/dL (32-36); Mean Corpuscular Hgb 31.7 pg (27.0-32.0); Mean Corpuscular Volume 91.4 fL (81-99); Mean Platelet Vol. 8.5 fl (6.2-12.0); Monocyte# 0.35 X10^3/uL; Monocyte% 4.7 % (0-10); NRBC Flagged by Analyzer 0 % (0-5); Neutrophil # 5.07 X10^3/uL (2.7-7.7); Neutrophil % 68.5 % (47-70); Platelet Count 241 K/mm3 (150-450); RBC Distribution Width CV 12.6 % (11.6-14.6); RBC Distribution Width SD 41.4 fl (35.1-43.9); Red Blood Count 4.29 M/mm3 (4.2-5.4); White Blood Count 7.4 K/mm3 (4.4-11.0)
[2025-01-11 15:20] LABS: Hemoglobin A1c 4.9 % (<=5.6)
[2025-01-11 15:46] LABS: ALB/GLOB Ratio 1.4 RATIO (0.9-2.4); AST(SGOT) 14 U/L (<=31); Alanine Aminotransfer ALT/SGPT 9 U/L (<=34); Albumin, Serum 3.9 g/dL (3.5-5.0); Alkaline Phosphatase 60 U/L (35-104); Anion Gap 15 (5-15); BUN 8 mg/dL (4-19); BUN/Creat Ratio 14.7 RATIO (10-20); Calcium,Total 9.1 mg/dL (7.6-11.0); Carbon Dioxide 20.7 mmol/L (21.0-32.0); Chloride 102 mmol/L (98-108); Creatinine, Serum 0.56 mg/dL (0.70-1.20); EST Glomerular Filtration Rate 127 (>60); Globulin 2.8 g/dL (2.2-4.2); Glucose 101 mg/dL (70-99); HIV Nonreactive (Nonreactive); Hepatitis B Surface Antigen Nonreactive (Nonreactive); Hepatitis C Antibody Nonreactive (Nonreactive); Potassium 3.8 mmol/L (3.3-5.1); Protein, Total 6.7 g/dL (5.9-8.4); Rubella IgG REAC (Nonreactive); Sodium Level 138 mmol/L (133-145); Syphilis Antibodies Reactive (Nonreactive); Total Bilirubin 0.26 mg/dL (0.00-1.30)
== END | disposition home or self-care (01) ==
LOC: BWCLAB 14:18
PROVIDERS: Obstetrics & Gynecology; Visit Provider Advanced Practice Midwife
DX: O09.299 Supervision of pregnancy with other poor reproductive or obstetric history, unspecified trimester (principal); Z3A.00 Weeks of gestation of pregnancy not specified
CPT/HCPCS: 36415; 80053; 83036; 85025; 86703; 86762; 86780; 86803; 86850; 86900; 86901; 87340

== ENCOUNTER → 2025-03-22 | Outpatient (CLI) | payer MEDICAID, SELFPAY ==
[2025-03-25 10:08] LABS: Anti-Cardiolipin Ab, IgG, Qn < 9 GPL U/mL (0-14); Anti-Cardiolipin Ab, IgM, Qn < 9 MPL U/mL (0-12); Beta-2-Glycoprotein I IgA <9 (0-25); Beta-2-Glycoprotein I IgG <9 (0-20); Beta-2-Glycoprotein I IgM <9 (0-32); Dilute Russell Viper Venom 37.3 sec (0.0-47.0); Interpretation Comment: (.); PTT-LA 35.8 sec (0.0-43.5); Thrombin Time 17.4 sec (0.0-23.0); dPT Confirm Ratio 1.11 Ratio (0.00-1.34)
== END | disposition home or self-care (01) ==
LOC: BWCLAB 11:54
PROVIDERS: Obstetrics & Gynecology; Referring Provider Obstetrics & Gynecology; Visit Provider Obstetrics & Gynecology
DX: N96 Recurrent pregnancy loss (principal); A53.0 Latent syphilis, unspecified as early or late
CPT/HCPCS: 36415; 86146; 86147; 86780

== ENCOUNTER → 2025-05-28 | Outpatient (CLI) | payer MEDICAID, SELFPAY ==
[2025-05-28 12:47] LABS: Hematocrit 33.9 % (37-47); Hemoglobin 11.9 g/dL (12.0-15.0); Immature Granulocytes Count 0.040 X10^3/uL (0.0-0.0); Mean Corp Hgb Conc 35.1 g/dL (32-36); Mean Corpuscular Volume 91.6 fL (81-99); Mean Platelet Vol. 8.7 fl (6.2-12.0); NRBC Flagged by Analyzer 0 % (0-5); Platelet Count 173 K/mm3 (150-450); RBC Distribution Width CV 13.3 % (11.6-14.6); RBC Distribution Width SD 43.9 fl (35.1-43.9); Red Blood Count 3.70 M/mm3 (4.2-5.4); White Blood Count 7.5 K/mm3 (4.4-11.0)
[2025-05-28 13:44] LABS: HIV Nonreactive (Nonreactive); Syphilis Antibodies Reactive (Nonreactive)
== END | disposition home or self-care (01) ==
PROVIDERS: Nurse Practitioner Women's Health; Referring Provider Obstetrics & Gynecology; Visit Provider Obstetrics & Gynecology
DX: O98.119 Syphilis complicating pregnancy, unspecified trimester (principal); A53.0 Latent syphilis, unspecified as early or late; Z3A.00 Weeks of gestation of pregnancy not specified
CPT/HCPCS: 36415; 85025; 86703; 86780

== ENCOUNTER → 2025-07-08 | Outpatient (CLI) | payer MEDICAID, SELFPAY | END | disposition home or self-care (01) | LOC: LABSPEC 11:58 | PROVIDERS: Referring Provider Obstetrics & Gynecology; Visit Provider Obstetrics & Gynecology | DX: O09.93 Supervision of high risk pregnancy, unspecified, third trimester (principal); Z3A.00 Weeks of gestation of pregnancy not specified | CPT/HCPCS: 87081 ==

== ENCOUNTER → 2025-07-09 | Outpatient (CLI) | payer MEDICAID, SELFPAY ==
--- NOTE | 2025-07-09 16:22 | US_ITS ---
PROCEDURE: OB LIMITED WITH BIOMETRICS 07/09/2025 REASON FOR EXAM: UTERINE SIZE DATE DISCREPANCY Routine survey TECHNIQUE: Procedure Code: [id number] Modality: US Procedure: OB LIMITED WITH BIOMETRICS COMPARISON: None FINDINGS Number: 1 in vertex presentation position is cephalic with heart rate at 160 beats per minute. JUAN is normal at 12.4 cm, largest pocket is 5.6 cm Heart rate noted at 160 beats per minute. Placenta is fundal, grade 2 BPD 9.5 cm, 38 weeks 5 days Head circumference 33..8 cm, 38 weeks 5 days Abdominal circumference 37.1 cm, 41 weeks 0 days Femur length 6.9 cm, 35 weeks 2 days EGA of 38 weeks 3 days by current ultrasound with a BEE of 07/20/2025 Estimated weight at 3805 g plus or minus 571 g, percentage of 98% No suspicious sonographic findings noted US/OB Limited With Biometrics IMPRESSION: Single live intrauterine at 38 weeks 3 days by current ultrasound wit h BEE of 07/20/2025. Heart rate at 160 beats per minute. No suspicious sonographic findings. JUAN is normal, placenta is fundal presentation is vertex Reading Location: [id number]
== END | disposition home or self-care (01) ==
LOC: US 16:20
PROVIDERS: PCP Family Medicine; Referring Provider Obstetrics & Gynecology; Visit Provider Obstetrics & Gynecology
DX: O24.419 Gestational diabetes mellitus in pregnancy, unspecified control (principal); Z3A.38 38 weeks gestation of pregnancy; O26.843 Uterine size-date discrepancy, third trimester
CPT/HCPCS: 76816

== ENCOUNTER 2025-07-12 08:24 | Outpatient (RCR) | payer MEDICAID, SELFPAY | END 2025-08-06 23:59 | LOC: NS 08:24 | PROVIDERS: PCP Family Medicine; Referring Provider Obstetrics & Gynecology; Visit Provider Obstetrics & Gynecology | DX: Z71.3 Dietary counseling and surveillance (principal); O24.419 Gestational diabetes mellitus in pregnancy, unspecified control; Z3A.00 Weeks of gestation of pregnancy not specified | CPT/HCPCS: 97802 ==

== ENCOUNTER 2025-07-16 12:36 | Inpatient (IN) | payer MEDICAID, SELFPAY ==
[2025-07-16] VITALS (53 sets, daily range): BP systolic 78–141; BP diastolic 42–91; PULSE 62–117; RESP 16; TEMP 36.6–36.9; O2SAT 91–100; BMI 35.3
[2025-07-16] MEDS: Lactated Ringers 1,000 ML 50 ML IV (12:45)
[2025-07-16 12:54] LABS: Hematocrit 39.5 % (37-47); Hemoglobin 13.6 g/dL (12.0-15.0); Immature Granulocytes Count 0.060 X10^3/uL (0.0-0.0); Mean Corp Hgb Conc 34.4 g/dL (32-36); Mean Corpuscular Volume 90.8 fL (81-99); Mean Platelet Vol. 9.3 fl (6.2-12.0); NRBC Flagged by Analyzer 0 % (0-5); Platelet Count 177 K/mm3 (150-450); RBC Distribution Width CV 14.4 % (11.6-14.6); RBC Distribution Width SD 46.3 fl (35.1-43.9); Red Blood Count 4.35 M/mm3 (4.2-5.4); White Blood Count 8.2 K/mm3 (4.4-11.0)
[2025-07-16] MEDS: Lactated Ringers 1,000 ML 999 ML IV (13:30)
[2025-07-16 13:57] LABS: Syphilis Antibodies Reactive (Nonreactive)
[2025-07-16 14:21] LABS: Anion Gap 13 (5-15); BUN 7 mg/dL (4-19); BUN/Creat Ratio 16.0 RATIO (10-20); Calcium,Total 9.0 mg/dL (7.6-11.0); Carbon Dioxide 18.8 mmol/L (21.0-32.0); Chloride 106 mmol/L (98-108); Estimated Creatinine Clearance 167.68 ml/min (50-250); Glucose 83 mg/dL (70-99); Potassium 3.8 mmol/L (3.3-5.1)
[2025-07-16] MEDS: fentaNYL-bupivacaine (epidural) 100 ML BAG EPIDURAL (14:40)
[2025-07-16] MEDS: LACTATED RINGERS 500 ML 999 ML IV ×2 (16:34→20:07)
--- NOTE | 2025-07-16 18:42 | PCM.HP.OB ---
HPI - General General Date of Admission: 07/16/25 HPI Narrative RAISA HERNANDEZ, is a 30 y/o @ 37 weeks 6 days who presents to L&D for ioL due to deceleration on NST in office today. However, IOL was also scheduled for tomorrow for uncontrolled and non-compliant gestational diabetes Maternal Data Information BEE Calculator Estimated Delivery Date Method Current WG Current Estimate 07/31/25 LMP (Certain) 37w 6d Other Estimates 08/04/25 Ultrasound #1 37w 2d PFSH PFSH Medical History Hx of depression, currently Abnormal thyroid function test Anxiety and depression Home Medications ?Medication ?Instructions ?Recorded ?Last Taken ?Type docosahexaenoic acid 200 mg 200 mg PO DAILY 12/11/24 07/16/25 History capsule ( DHA) flash glucose scanning reader #1 ea 05/28/25 Unknown Rx (FreeStyle [place]cos 2 [place]) flash glucose sensor (FreeStyle #1 ea 05/28/25 Unknown Rx Marcos 2 Sensor kit) metformin 500 mg tablet,extended 500 mg PO QDAY gdm #30 tabs 07/08/25 07/16/25 Rx release 24 hr (Glucophage XR) Allergy/AdvReac Type Severity Reaction Status Date / Time No Known Allergies Allergy Verified 07/16/25 12:55 Surgical History History of vacuum extraction assisted delivery Social History adopted: No household members: significant other and children housing: house number of children: 4 current occupational status: unemployed current occupation: [employer] current occupational exposures/hazards: No pets and animals: Yes pets and animals: dog(s) history of recent travel: No sexually active: Yes Smoking Status: Never smoker second hand exposure: No alcohol intake: never substance use type: does not use well-balanced diet: daily or most days caffeine: No eating out: rarely or never during the past year weight has: increased > 10 lbs what type of physical activity do you participate in: walking frequency: 5-6 times per week duration: 30-45 minutes/day aliza/restorationism: None seatbelt use: always do you feel safe at home: Yes additional social history: : [place]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 Date Name GA/Weeks Outcome Route Bth Weight Gen Labor Lgth Anesthesia Del Locatn Provider FOB 01/29/14 Mark 39 live - full term 7lbs 8oz Female epidural Joe Huerta 10/13/16 Aleksey 38 live - full term 6lbs 7oz Male epidural [facility] Dr. Hugh Mensah 10/16/19 Dashawn 37 live - full term 6lbs 6oz Female epidural [facility] [place] SHAKIR Rodrick 11/11/22 Juno 39 live - full term 7lbs 5oz Male epidural [facility] [place] Shane Mensah Delivery Date: 01/29/14 Last Updated by: Carrie De Oliveira Vacuum delivery, episomtomy Delivery Date: 10/13/16 Last Updated by: Carrie De Oliveira No complications Delivery Date: 10/16/19 Last Updated by: Carrie De Oliveira pre eclampsia Delivery Date: 11/11/22 Last Updated by: Aura Brandt IOL Visit Details Expected Delivery Route/Plan Labor Preferences- CB/BF classes: no labor support person: Rodrick labor intervention preferences: [] pain management options preferred: epidural cut cord/dad catch: yes : yes PP control planned: discussed discussed possible routes of delivery and associated risks: [] special requests: [] Plans Covid status: [] Flu vaccine: [] Tdap vaccine: declines Rhogam: na LARC form signed: yes Problem list reviewed and updated with the most current plan of care details and appropriate orders placed. Relevant counseling for the gestational age provided. Continue routine care and follow up unless otherwise noted in visit notes/problem list details OB Flowsheet Initial Weight: Not Recorded Date <del>?</del> EGA Weight BP Urine Prot <del>?</del> Glucose FHR FuHt Pres Dilation <del>?</del> Effaced St Visit Note 12/25/24 <del>?</del> 8w 6d 162 lb 128/77 <del>?</del> 165 <del>?</del> KW- CRL cons with dates. Accepts NIPT KW- CRL cons with dates. Accepts NIPT. discussed starting asa at 12 weeks. pre e labs with NOB labs 01/26/25 <del>?</del> 13w 3d 159 lb 4 oz 113/76 Negative <del>?</del> Negative 155 <del>?</del> SM- no vb cramping 02/22/25 <del>?</del> 17w 2d 160 lb 8 oz 106/67 Negative <del>?</del> Negative 147 <del>?</del> JV- no lof, vaginal bleeding, or cramping. anatomy scan scheduled for 03/2103/22/25 <del>?</del> 21w 2d 163 lb 8 oz 112/71 Negative <del>?</del> Negative 154 <del>?</del> KW- no vb/lof/ctx. good fm. US reviewed and syphilis redrawn today. 04/19/25 <del>?</del> 25w 2d 168 lb 114/72 Negative <del>?</del> Negative 142 27 <del>?</del> MH-No VB, LOF. Good FM. Denies concerns 05/10/25 <del>?</del> 28w 2d 171 lb 1 oz 114/76 Negative <del>?</del> Negative 150 29 <del>?</del> MH-NO VB, LOF. Vomited glucose drink soon after ingested. Has done this with prior . Will repeat this week, try Fresh test and take zofran prior. Declines tdap. 05/28/25 <del>?</del> 30w 6d 173 lb 6 oz 105/69 Negative <del>?</del> Negative 152 32 <del>?</del> JV- vomited the glucose again. plan to check 4 x a day glucose levels. will order monitors. 3rd trimester labs today. 06/09/25 <del>?</del> 32w 4d 175 lb 7 oz 114/71 Negative <del>?</del> Negative 134 32 <del>?</del> JV- patient has been recording her glucose levels and all are above normal range. fasting is 100-112 and 2 hr pp are 130's. nutrition consult ordered but if no improvement will start metformin. 07/08/25 <del>?</del> 36w 5d 181 lb 9 oz 134/84 Negative <del>?</del> Negative 135 42 <del>?</del> SM- no vb lof good fm n oregular ctx measuring significantly ahead. ptaient missed her last appointment due to family issues. never met with resident buyer, BS not controlled, will start metformin and meet with resident buyer 07/12/25 <del>?</del> 37w 2d 183 lb 9 oz 134/78 Negative <del>?</del> Negative 140 <del>?</del> SM- no vb lof good fm no regular ctx EF 3800g on US met with nieves, FBS around 95-100 with metformin but meals 140-150, increase metformin to 500 BID set up IOL at 38 weeks due to uncontrolled 07/16/25 <del>?</del> 37w 6d 181 lb 6 oz 135/81 Negative <del>?</del> Negative 145 5 <del>?</del> 70 -2 KW- no vb/lof/ctx. good fm. IOL for tomorrow. fastings are 87-92. PP sugars are still slightly elevated. ROS Constitutional Constitutional: Denies change in weight, fatigue, fever(s), headache(s), poor appetite or weakness Eyes Eyes: Denies blurry vision, change in vision, seeing flashes or spots in vision ENT HEENT: Denies dizziness, headache(s), loss taste/smell or sore throat Cardiovascular Cardiovascular: Denies chest pain, dizziness, dyspnea, irregular heart rhythm, leg edema, palpitations, rapid heart rate or vomiting Respiratory/Chest Respiratory/Chest: Denies chest tightness, cough, dyspnea or breast pain Gastrointestinal Gastrointestinal: Denies abdominal pain, anorexia, constipation, cramping, diarrhea, hemorrhoids, vomiting or weight changes Genitourinary Genitourinary: Denies dysuria, flank pain, genital lesions, genital pain, urinary frequency or urinary urgency Musculoskeletal Musculoskeletal: Denies back pain, difficulty walking, joint pain, limited range of motion, muscle cramps or numbness Integumentary Integumentary: Denies lesions or unusual bruising Neurologic Neurologic: Denies abnormal movements, abnormal speech, dizziness, numbness, seizure-like activity or syncope Psychiatric Psychiatric: Denies anxiety, behavioral changes, change in appetite, change in libido, cognitive impairment, confusion, depression, difficulty concentrating, hallucinations or suicidal thoughts Endocrine Endocrinology: Denies excessive sweating, polydipsia or polyuria Hematologic/Lymphatic Hematologic/Lymphatic: Denies easy bleeding, easy bruising or lymphadenopathy Allergic/Immunologic Allergic/Immunologic: Denies itchy eyes, lip swelling, seasonal rhinorrhea, rhinitis, throat swelling, tongue swelling, eczemia, wheezing or asthma Vital Signs Vital Signs Vital Signs: 07/16/25 14:10 07/16/25 14:10 07/16/25 14:10 Temperature Temperature Source Pulse Rate 101 H Respiratory Rate Blood Pressure 137/80 H BP Systolic 137 BP Diastolic 80 Pulse Ox 99 07/16/25 14:15 07/16/25 14:15 07/16/25 14:16 Temperature Temperature Source Pulse Rate 108 H Respiratory Rate Blood Pressure 131/74 H BP Systolic 131 BP Diastolic 74 Pulse Ox 100 07/16/25 14:16 07/16/25 14:17 07/16/25 14:17 Temperature Temperature Source Pulse Rate 110 H 108 H Respiratory Rate Blood Pressure BP Systolic BP Diastolic Pulse Ox 91 07/16/25 14:18 07/16/25 14:18 07/16/25 14:20 Temperature Temperature Source Pulse Rate 99 83 Respiratory Rate Blood Pressure 137/75 H BP Systolic 137 BP Diastolic 75 Pulse Ox 07/16/25 14:20 07/16/25 14:21 07/16/25 14:21 Temperature Temperature Source Pulse Rate 80 Respiratory Rate Blood Pressure 120/64 BP Systolic 120 BP Diastolic 64 Pulse Ox 98 07/16/25 14:25 07/16/25 14:25 07/16/25 14:27 Temperature Temperature Source Pulse Rate 88 Respiratory Rate Blood Pressure 103/56 L BP Systolic 103 BP Diastolic 56 Pulse Ox 98 07/16/25 14:27 07/16/25 14:28 07/16/25 14:30 Temperature 97.9 F Temperature Source Pulse Rate 93 Respiratory Rate Blood Pressure 93/47 L BP Systolic 93 BP Diastolic 47 Pulse Ox 07/16/25 14:30 07/16/25 14:30 07/16/25 14:35 Temperature Temperature Source Pulse Rate 85 76 Respiratory Rate Blood Pressure BP Systolic BP Diastolic Pulse Ox 98 07/16/25 14:35 07/16/25 14:36 07/16/25 14:36 Temperature Temperature Source Pulse Rate 76 Respiratory Rate Blood Pressure 112/53 L BP Systolic 112 BP Diastolic 53 Pulse Ox 98 07/16/25 14:40 07/16/25 14:40 07/16/25 14:40 Temperature Temperature Source Pulse Rate 74 Respiratory Rate Blood Pressure 102/55 L BP Systolic 102 BP Diastolic 55 Pulse Ox 97 07/16/25 14:45 07/16/25 14:45 07/16/25 14:46 Temperature Temperature Source Pulse Rate 73 Respiratory Rate Blood Pressure 99/51 L BP Systolic 99 BP Diastolic 51 Pulse Ox 97 07/16/25 14:46 07/16/25 14:50 07/16/25 14:50 Temperature Temperature Source Pulse Rate 71 76 Respiratory Rate Blood Pressure 96/50 L BP Systolic 96 BP Diastolic 50 Pulse Ox 07/16/25 14:50 07/16/25 14:56 07/16/25 14:56 Temperature Temperature Source Pulse Rate 75 Respiratory Rate Blood Pressure 93/50 L BP Systolic 93 BP Diastolic 50 Pulse Ox 97 07/16/25 15:01 07/16/25 15:01 07/16/25 15:06 Temperature Temperature Source Pulse Rate 69 Respiratory Rate Blood Pressure 90/53 L 80/49 L BP Systolic 90 80 BP Diastolic 53 49 Pulse Ox 07/16/25 15:06 07/16/25 15:11 07/16/25 15:11 Temperature Temperature Source Pulse Rate 72 68 Respiratory Rate Blood Pressure 91/53 L BP Systolic 91 BP Diastolic 53 Pulse Ox 07/16/25 15:15 07/16/25 15:15 07/16/25 15:27 Temperature Temperature Source Pulse Rate 71 Respiratory Rate Blood Pressure 91/55 L 78/42 L BP Systolic 91 78 BP Diastolic 55 42 Pulse Ox 07/16/25 15:27 07/16/25 15:37 07/16/25 15:37 Temperature Temperature Source Pulse Rate 62 66 Respiratory Rate Blood Pressure 83/44 L BP Systolic 83 BP Diastolic 44 Pulse Ox 07/16/25 15:40 07/16/25 15:40 07/16/25 15:43 Temperature Temperature Source Pulse Rate 72 Respiratory Rate Blood Pressure 89/53 L 93/50 L BP Systolic 89 93 BP Diastolic 53 50 Pulse Ox 07/16/25 15:43 07/16/25 15:45 07/16/25 15:45 Temperature Temperature Source Pulse Rate 80 82 Respiratory Rate Blood Pressure 91/51 L BP Systolic 91 BP Diastolic 51 Pulse Ox 07/16/25 15:58 07/16/25 15:58 07/16/25 15:59 Temperature Temperature Source Temporal Pulse Rate 92 Respiratory Rate Blood Pressure 99/54 L BP Systolic 99 BP Diastolic 54 Pulse Ox 07/16/25 15:59 07/16/25 15:59 07/16/25 16:02 Temperature 97.9 F Temperature Source Pulse Rate Respiratory Rate 16 Blood Pressure 119/54 L BP Systolic 119 BP Diastolic 54 Pulse Ox 07/16/25 16:02 07/16/25 16:07 07/16/25 16:07 Temperature Temperature Source Pulse Rate 101 H 85 Respiratory Rate Blood Pressure 140/63 H BP Systolic 140 BP Diastolic 63 Pulse Ox 07/16/25 16:13 07/16/25 16:13 07/16/25 16:15 Temperature Temperature Source Pulse Rate 83 Respiratory Rate 16 Blood Pressure 107/53 L BP Systolic 107 BP Diastolic 53 Pulse Ox 07/16/25 16:15 07/16/25 16:17 07/16/25 16:17 Temperature 98.3 F Temperature Source Pulse Rate 95 Respiratory Rate Blood Pressure 111/63 BP Systolic 111 BP Diastolic 63 Pulse Ox 07/16/25 16:17 07/16/25 16:22 07/16/25 16:22 Temperature 98.2 F Temperature Source Pulse Rate 83 Respiratory Rate Blood Pressure 95/49 L BP Systolic 95 BP Diastolic 49 Pulse Ox 07/16/25 16:26 07/16/25 16:26 07/16/25 16:31 Temperature Temperature Source Pulse Rate 78 Respiratory Rate Blood Pressure 141/85 H 116/86 H BP Systolic 141 116 BP Diastolic 85 86 Pulse Ox 07/16/25 16:31 07/16/25 16:41 07/16/25 16:41 Temperature Temperature Source Pulse Rate 79 101 H Respiratory Rate Blood Pressure 131/91 H BP Systolic 131 BP Diastolic 91 Pulse Ox 07/16/25 16:46 07/16/25 16:46 07/16/25 16:51 Temperature Temperature Source Pulse Rate 99 Respiratory Rate Blood Pressure 106/55 L 103/52 L BP Systolic 106 103 BP Diastolic 55 52 Pulse Ox 07/16/25 16:51 07/16/25 16:56 07/16/25 16:56 Temperature Temperature Source Pulse Rate 96 90 Respiratory Rate Blood Pressure 106/49 L BP Systolic 106 BP Diastolic 49 Pulse Ox 07/16/25 17:01 07/16/25 17:01 07/16/25 17:07 Temperature Temperature Source Pulse Rate 96 Respiratory Rate Blood Pressure 101/57 L 127/55 H BP Systolic 101 127 BP Diastolic 57 55 Pulse Ox 07/16/25 17:07 07/16/25 17:13 07/16/25 17:13 Temperature Temperature Source Pulse Rate 88 100 Respiratory Rate Blood Pressure 115/56 L BP Systolic 115 BP Diastolic 56 Pulse Ox 07/16/25 17:52 07/16/25 17:52 Temperature Temperature Source Pulse Rate 80 Respiratory Rate Blood Pressure 112/58 L BP Systolic 112 BP Diastolic 58 Pulse Ox Weight Weight: 181 lb Body Mass Index (BMI) 35.3 Physical Exam Const alert, oriented x3, no apparent distress and healthy appearing General Appearance: cooperative; Negative for anxious HEENT normocephalic Face and Sinus: normal facial exam Eyes EOMs intact bilaterally and no scleral icterus General Eye: normal appearance of both eyes Neck full ROM and supple Lymph Lymphatic: no lymphadenopathy noted Resp normal respiratory effort Effort and Inspection: able to speak in complete sentences Cardio regular rate GI soft to palpation and non-tender Inspection: gravid Palpation: soft; Negative for tender external exam normal Amniotic Fluid: ROM+plus Back/Spine no CVA tenderness Extremity normal to inspection, full ROM and no clubbing, cyanosis or edema General Extremity: Negative for calf tenderness or edema Skin Lesions: no lesions Rashes: no rashes Psych mental status grossly normal Labs Labs Labs: Blood Type A POSITIVE Antibody Screen NEGATIVE Hct, (37-47) 39.5 % Hgb, (12.0-15.0) 13.6 g/dL Pap Smear Negative Obstetrics Ultrasound Syphilis Total Ab, (Nonreactive) Reactive H Rubella IgG Antibody, (Nonreactive) REAC Hep Bs Antigen, (Nonreactive) Nonreactive Hepatitis C Antibody, (Nonreactive) Nonreactive Chlamydia DNA (GÉNESIS), (Negative) Negative N.gonorrhoeae DNA (GÉNESIS), (Negative) Negative HIV 1&2 Antibody, (Nonreactive) Nonreactive Glucose 1 Hr 50 gm, (70-140) 98 mg/dL Rhogam given: No Miscellaneous Test, (.) COMMENT Assessment & Plan (1) Gestational diabetes: COMMENT: nutrition consult, started metformin- increased to bid, twice weekly nsts, plan IOL 38 weeks uncontrolled diabetes (2) Abnormal glucose tolerance test: COMMENT: unable to tolerate the glucola. vomited twice. plan to start checking levels. (3) Positive serology for syphilis: COMMENT: redraw at 21 weeks, confirmation [facility] test negative. (4) Supervision of high-risk : QUALIFIERS: Trimester: third trimester Qualified Code(s): O09.93 - Supervision of high risk , unspecified, third trimester COMMENT: PRR , BEE 07/31/25, PC: Aleksey Flores Kinsley & Juno, : Rodrick (5) : QUALIFIERS: Weeks of gestation: 37 weeks Qualified Code(s): Z3A.37 - 37 weeks gestation of COMMENT: genetic low risk normal anatomy (6) Obesity affecting : QUALIFIERS: Trimester: second trimester Obesity type affecting : unspecified obesity Qualified Code(s): O99.212 - Obesity complicating , second trimester COMMENT: BMI 30.9, HgBA1C ordered w/NOB labs (7) History of pre-eclampsia in prior , currently : COMMENT: Baby ASA @ 12-28weeks; Pre-e baseline labs ordered w/NOB labs (8) History of vacuum extraction assisted delivery: COMMENT: First child (9) Hx of depression, currently : (10) Anxiety and depression: COMMENT: Not on meds - coping well (11) ASCUS of cervix with negative high risk HPV: COMMENT: 04/25/22 06/06/23 - Nml (12) Migraine with aura: PLAN: Plan Patient presents IOL, plan management for with pitocin: AROM performed at 1 pm today. Pain management: plans epidural. GBS negative. rpr pos-reflex ordered Management of any complications: [none] I have reviewed the [facility] and made any clinically relevant updates.
[2025-07-16] MEDS: Oxytocin 15 Units/NS 250ml 15 UNITS/250 ML IV.SOLN 2 UNITS IV (19:20)
--- NOTE | 2025-07-16 21:57 | PCM.PN.BLA ---
Progress Note patient has been pushing on and off since approximately 7:15 tonight (currently 10 pm). She has started to become moderately edematous around her labia and intravaginally she has developed edema below the urethra. The baby remains at a +1 station despite tug of war, resting, and adequate contractions. The heart rate shows moderate variability with accelerations but also frequent late decelerations (category 2) Attempt was made to perform a vacuum extraction after r/b/a discussed. The bladder was drained of a scant amount of urine and the kiwi was placed on the infants head. Before I was able to activate the device, the patient immediately asked for it to be removed and that she wanted to proceed with section.
--- NOTE | 2025-07-16 22:07 | PCM.DC ---
Discharge Instructions DC O2, CPAP, BIPAP needs Home O2 Discharge instructions: No Dressing / Incision Discharge Activity: May Not Drive (for 2 weeks or while taking narcotic pain medications.), May Shower and May Take a Tub Bath (in 7 days.) May resume sexual activity in: 4-6 weeks Weight Bearing Status: Full weight bearing Lifting Restrictions: 20 pounds Dressing / Incision Call your doctor if your incision/area has: Continuous Slow Oozing, Sudden Increased Bleeding, Increased Pain/ Swelling, Increased Redness and Foul Smelling Discharge Call your doctor if you observe: Fever of 101 or Higher and Using more than 1 pad per hour Suture Line Care: Avoid Pulling/Pushing and Avoid Pinching/Bending Cleanse incision/area with: Soap & Water and Keep Dressing Clean & Dry Follow Up Care Please Follow Up With: Heidi Mayer DO When: Call [phone] to make an appointment for an incision check in 1-2 weeks. Test Results: Test results from this visit will be discussed in further detail at your follow-up appointment, if applicable. Discharge Plan Admission Admit Date/Time: 07/16/25 12:36 Primary Reason for Your Visit: section Attending Provider: Belen Rubio Primary Care Provider: ROBERT VIRK Discharge Orders/Prescriptions Prescriptions: New ibuprofen 800 mg tablet 800 mg PO Q8H PRN (Reason: pain) Qty: 30 0RF oxycodone-acetaminophen [Percocet] 5-325 mg tablet 1 tab PO Q4H PRN (Reason: pain) 7 Days Qty: 20 0RF Continued DHA 200 mg capsule 200 mg PO DAILY (DME) FreeStyle Marcos 2 Wolverine Misc See Rx Instructions .Route Qty: 1 0RF Rx Instructions: As directed (DME) FreeStyle Marcos 2 Sensor Kit See Rx Instructions .Route Qty: 1 12RF Rx Instructions: As directed metformin [Glucophage XR] 500 mg tablet extended release 24 hr 500 mg PO QDAY Qty: 30 1RF Referrals / Follow Up: ROBERT VIRK MD [Primary Care Provider, Family Practice] Disposition Disposition (needs filled in before D/C Order can be placed): Home, Self Care
[2025-07-16] MEDS: Cefazolin 1 GM/5 ML Vial 2 GM IV (22:21)
[2025-07-16] MEDS: fentaNYL 100 MCG/2 ML Ampul IV (22:48)
[2025-07-16] MEDS: morphine PF (epidural) 5 MG/10 ML Vial IV (23:00)
[2025-07-16] MEDS: Lidocaine 2% (5ml sdv) 5 ML VIAL.MPF 20 ML EPIDURAL (23:13)
[2025-07-16] MEDS: TRANEXAMIC ACID 1,000 MG/10 ML ML 1000 MG IV (23:38)
[2025-07-17] VITALS (23 sets, daily range): BP systolic 98–132; BP diastolic 48–88; PULSE 72–98; RESP 16–18; TEMP 36.3–37.6; O2SAT 97–100
--- NOTE | 2025-07-17 | HYST_PTH ---
PATIENT: RAISA HERNANDEZ LOC: [facility] U#:[id number] AGE/SX: 30/F ROOM: [facility] RE07/16/[address]: Dr. Heidi Mayer DO : 1995 BED: 1 DIS: 07/19/2025 SPEC #: [id number] RECD: 07/17/25 04:50 STATUS: ELISEO ALIYAH #: [id number] TESSA: 07/17/25 00:[address]: Heidi Mayer DEPT: SURGICAL PATHOLOGY RECD BY: Abiel Panchal ENTERED: 07/19/25 08:29 SP TYPE: HYSTERECT OTHR DR: MD Dr. Radha HARRELL MD Kelly Williams, CNM Tissues: Uterus, NOS Procedures: Surgery Specimen Level V HEADER OPERATION: Primary section PRE-OP DIAGNOSIS: C- Hysterectomy TISSUE SUBMITTED: A- Left ovary and uterus MICROSCOPIC DIAGNOSIS A. Uterus, cervix, left ovary and bilateral fallopian tubes, status post primary cesarian section, hysterectomy with left oophorectomy and bilateral salpingectomy: * Cervix: focal decidual stromal change. * Endometrium: decidual change. * Myometrium: no specific pathologic change. * Lower uterine segment: sutured surgical defect with focal dilated endocervical gland. * Left ovary: multiple developing and atretic follicles, few corpora albicantia. * Right and left fallopian tubes: no specific pathologic change. MICROSCOPIC DESCRIPTION Slides are reviewed. GROSS DESCRIPTION A. Received in formalin labeled with the patient's name and date of a 1044 g, 17.8 x 12.8 x 6.8 cm uterus with detached and attached adnexa. The serosa is marte-pink, slightly wrinkled with patchy congestion and a 9.7 cm sutured, linear defect on the anterior aspect of the lower uterine segment with surrounding congestion. The attached cervix is marte-pink to holliday, dull to granular and measures 7.0 x 4.7; the 4.4 cm os is slightly irregular and probe patent. The specimen is inked as follows: Vwwfpbei-muplzBanzjazot-ythplExlkuolbxmn-orangeSutured linear defect-yellow Opening of the uterus/cervix reveals a 12.9 x 8.8 cm irregular and dilated endometrial canal with adherent blood clot throughout. Sectioning reveals an endometrial thickness of approximately 0.5 cm and marte-pink, somewhat cystic myometrium measuring up to 3.9 cm thick. The pink to dark red bilateral fallopian tubes are fimbriated and measure 5.9 x 0.7 cm (L) and 9.4 x 0.6 cm (R) The detached, marte-purple to blue ovary measures 5.4 x 3.8 x 1.3 cm (L). [place] Archeology Professor sections are submitted as follows: A1: Anterior cervixA2: Posterior cervixA3: Anterior endomyometriumA4: Posterior endomyometriumA5: Left fallopian tubeA6: Right fallopian tubeA7: Left ovaryA8-A9: Linear defect A10: Linear defect and possible cervical cyst Note: This case is reviewed with the surgeon (Dr. Mayer) and pathologist (Dr. Hartman) prior to gross examination (AL). AL 07/19/2025 CPT:16145
[2025-07-17 00:21] LABS: Hematocrit 31.4 % (37-47); Hemoglobin 10.8 g/dL (12.0-15.0); Immature Granulocytes Count 0.070 X10^3/uL (0.0-0.0); Mean Corp Hgb Conc 34.4 g/dL (32-36); Mean Corpuscular Volume 93.7 fL (81-99); Mean Platelet Vol. 9.5 fl (6.2-12.0); NRBC Flagged by Analyzer 0 % (0-5); Platelet Count 169 K/mm3 (150-450); RBC Distribution Width CV 14.7 % (11.6-14.6); RBC Distribution Width SD 49.6 fl (35.1-43.9); Red Blood Count 3.35 M/mm3 (4.2-5.4); White Blood Count 13.8 K/mm3 (4.4-11.0)
[2025-07-17] MEDS: Azithromycin 500 MG Vial (SNAP) IV (00:51)
--- NOTE | 2025-07-17 01:47 | OP.PCM_ITS ---
Assessment & Plan (1) Abnormal glucose tolerance test: COMMENT: unable to tolerate the glucola. vomited twice. plan to start checking levels. (2) Positive serology for syphilis: COMMENT: redraw at 21 weeks, confirmation [facility] test negative. (3) Supervision of high-risk : QUALIFIERS: Trimester: third trimester Qualified Code(s): O09.93 - Supervision of high risk , unspecified, third trimester COMMENT: PRR , BEE 07/31/25, PC: Aleksey Flores Kinsley & Juno, : Rodrick (4) : QUALIFIERS: Weeks of gestation: 37 weeks Qualified Code(s): Z3A.37 - 37 weeks gestation of COMMENT: genetic low risk normal anatomy (5) Obesity affecting : QUALIFIERS: Trimester: second trimester Obesity type affecting : unspecified obesity Qualified Code(s): O99.212 - Obesity complicating , second trimester COMMENT: BMI 30.9, HgBA1C ordered w/NOB labs (6) History of pre-eclampsia in prior , currently : COMMENT: Baby ASA @ 12-28weeks; Pre-e baseline labs ordered w/NOB labs (7) History of vacuum extraction assisted delivery: COMMENT: First child (8) Hx of depression, currently : (9) Anxiety and depression: COMMENT: Not on meds - coping well (10) Migraine with aura: (11) ASCUS of cervix with negative high risk HPV: COMMENT: 04/25/22 06/06/23 - Nml Maternal Data Information BEE Calculator Estimated Delivery Date Method Current WG Current Estimate 07/31/25 LMP (Certain) 38w 0d Other Estimates 08/04/25 Ultrasound #1 37w 3d Final BEE: 07/31/25 Final BEE Source: LMP [place] Doctor Who Attended Delivery: Yennifer Carmen Operative Report (OB) Procedure Details Date of Procedure: 07/17/25 Procedure Start Time: 21:37 Pre-Operative Diagnosis: Protracted Descent and Other (intrapartum hemorrhage ) Other Pre-Operative diagnosis: uterine incision extension Post-Operative Diagnosis: Same as Pre-operative diagnosis Classification: TAI Type of Anesthesia: General and Spinal Antibiotic Given: Ancef 2 grams IV x1 and Zithromax 500 mg/5 mL X1 Drain: Macias to straight drain Estimated Blood Loss: 1800cc Findings Description of surgery: Patient initially presented to labor and delivery for induction of labor due to uncontrolled diabetes and decelerations in the office during her NST. Her induction was initiated with AROM as she was found to be 5 cm dilated on admission. She progressed to complete with only a small amount of Pitocin needed at the very end. She pushed initially from approximately 7:00 PM until approximately 10:00 PM with 1 break in between. Minimal descent was noted during this time with pushing from a 0 to +1 station. After several hours the baby did descend to +2 and the decision was made to offer a vacuum extraction. The risk benefits and alternatives of the procedure were discussed with the patient. Initially she agreed to the vacuum extraction however once the device was placed on the infant's head she begged to have it removed and asked for a section. The patient was brought to the operating room where epidural anesthesia was found to be adequate. Macias catheter was placed. The patient was placed in the dorsal supine position with leftward tilt. Patient was prepped and draped in the normal sterile fashion. Pfannenstiel skin incision was made with the scalpel and carried through to the underlying layer of fascia with the scalpel. Fascia was nicked in the midline and the incision extended laterally. The rectus bellies were dissected off superiorly and inferiorly with out complication both sharply and bluntly. The peritoneum was entered digitally. The incision was stretched and a low transverse uterine incision was made with the scalpel. The infant's head was delivered with the help of a hand from below from the nursing staff and atraumatically followed by the anterior and posterior shoulders without complication the rest of the infant delivered. The cord was clamped and cut and the infant was handed off to awaiting nurse. The placenta was delivered spontaneously immediately following and was noted to be intact and have a three-vessel cord. The uterus was exteriorized cleared of all clots and debris, and the incision was closed in a double layer closure using #1 Vicryl and a #1 Monocryl. A left uterine extension was noted and was repaired using a series of Monocryl suture. This did not stop the bleeding despite multiple attempts to repair this side the backside of the uterus was identified and there was noted to be a full thickness laceration from the front to the back of the uterus involving the uterine arteries. Uterine artery ligation was attempted to be performed it appeared also that the ovarian artery was involved in the laceration and attempt was made to stop the bleeding from the ovary. A LigaSure device was then used after permission from the and the patient to remove the ovary and attempts to stop the bleeding. The LigaSure was helpful to remove the ovary however this did not stop the bleeding. Report from the PHOTOGRAMMETRIC COMPILATION SPECIALIST was that the Macias was full of yue blood. The Macias was backfilled with 100 cc of normal saline. No spilling was noted in the pelvis and when the saline was drained back out of the bladder there was no further blood in the bag. At this point a large amount of blood loss was noted approximately 1000 cc. And the decision was made to proceed with a hysterectomy. The hysterectomy was initiated first by taking down the round ligaments on each side with the LigaSure device this was not very helpful as the arteries were noted to be too large. A series of Alfie clamps and Monocryl suture was used instead to create hemostasis and to safely remove the ligaments and arteries. The broad ligament was and opened. The uterine arteries bilaterally were isolated and suture-ligated. The uterosacral ligaments were also clamped and cut. Z clamps were used then to move across the cervix with several bites. Until the cervix was amputated and the uterus was passed off the field. There was noted to be still some bleeding on the left lower side. This was very small amount of oozing and hemoblast was applied and held in place for 2 minutes. Irrigation was performed and hemostasis was noted at all operative sites. The the right ovary, still intact, was noted to be bleeding. 3-0 Monocryl suture was used to save the ovary and cauterized the areas of bleeding. The Macias was again examined and there was no further blood in the bag. The peritoneum was closed with a 3-0 Vicryl. Fascia was closed with 0 PDS in a running fashion. Subcutaneous tissue was copiously irrigated and the skin was closed with 3-0 Monocryl in a subcuticular fashion. Mepilex dressing was applied without complication. Patient was taken to recovery in stable condition. Surgical findings: Viable male . Extensive blood loss from left uterine artery and ovarian artery lacerations. Presentation: Vertex Amniotic Membrane Rupture Type: Artificial Amniotic Fluid Description: Clear Placental Delivery Description: Manual Removal Placenta Disposition: [facility] Specimen collected: Yes Description of specimen(s) removed: Uterus cervix left ovary bilateral fallopian tubes Cord Vessel Description: 3 Vessels Cord Entanglement: None Cord Gases: ABG and VBG A gender: Male Delayed Cord Clamping: Yes Manager Utilization Management derrick boat lever operator: Yes Electrical Development Engineer: Manuelito Frazier Tasks completed by retail assistant manager: Closing, Hemostasis: Clamp, Hemostasis: Tie and Retracting Additional media assistant?: No Complications Complications: Yes Complication Details: Blood loss resulting in blood transfusion intraoperatively, loss of uterus via hysterectomy to control bleeding Multi Select Codes Urinary/Genital Urinary/Genital CPT Codes: 50490 C-Hyst
[2025-07-17 02:11] LABS: Hematocrit 37.2 % (37-47); Hemoglobin 11.6 g/dL (12.0-15.0); Immature Granulocytes Count 0.150 X10^3/uL (0.0-0.0); Mean Corp Hgb Conc 31.2 g/dL (32-36); Mean Corpuscular Volume 98.4 fL (81-99); Mean Platelet Vol. 9.6 fl (6.2-12.0); NRBC Flagged by Analyzer 0 % (0-5); Platelet Count 126 K/mm3 (150-450); RBC Distribution Width CV 14.7 % (11.6-14.6); RBC Distribution Width SD 52.6 fl (35.1-43.9); Red Blood Count 3.78 M/mm3 (4.2-5.4); White Blood Count 18.1 K/mm3 (4.4-11.0)
[2025-07-17] MEDS: Lactated Ringers 1,000 ML 100 ML IV ×3 (02:25→19:13)
[2025-07-17] MEDS: 0.9% Normal Saline (1000mL) 200 ML IV (02:39)
[2025-07-17] MEDS: Ketorolac 30 MG/ML Syringe IV ×4 (02:50→20:50)
--- NOTE | 2025-07-17 04:27 | NURSING ---
RN obtained blood sugar on this pt at approx 0315. Pt's blood sugar was 124.
--- NOTE | 2025-07-17 04:52 | NURSING ---
[address] Mccoy to call OR team in to proceed with hysterectomy. 2351 Dr Mccoy requested to call off OR team, improvement made in pt's bleeding. 2354 Pt continuing to bleed, Dr mccoy requsting to call OR team back and have them come in to proceed with hysterectomy.
--- NOTE | 2025-07-17 04:56 | NURSING ---
0000 Blood noted in pt's sosa bag, requesting saline flush through sosa to check the bladder. 200cc flushed through sosa, draining clear urine.
[2025-07-17 05:22] LABS: Pathology Specimen OB SEE PATHOLOGY REPORT
[2025-07-17 05:49] LABS: Hematocrit 26.1 % (37-47); Hemoglobin 8.8 g/dL (12.0-15.0); Mean Corp Hgb Conc 33.7 g/dL (32-36); Mean Corpuscular Volume 92.2 fL (81-99); Mean Platelet Vol. 9.4 fl (6.2-12.0); Platelet Count 123 K/mm3 (150-450); RBC Distribution Width CV 14.8 % (11.6-14.6); RBC Distribution Width SD 49.4 fl (35.1-43.9); Red Blood Count 2.83 M/mm3 (4.2-5.4); White Blood Count 10.6 K/mm3 (4.4-11.0)
[2025-07-17 06:11] LABS: AST(SGOT) 14 U/L (<=31); Alanine Aminotransfer ALT/SGPT 7 U/L (<=34); Albumin, Serum 1.8 g/dL (3.5-5.0); Alkaline Phosphatase 60 U/L (35-104); Anion Gap 10 (5-15); BUN 6 mg/dL (4-19); BUN/Creat Ratio 15.2 RATIO (10-20); Calcium,Total 7.0 mg/dL (7.6-11.0); Carbon Dioxide 17.1 mmol/L (21.0-32.0); Chloride 108 mmol/L (98-108); Estimated Creatinine Clearance 213.00 ml/min (50-250); Globulin 1.2 g/dL (2.2-4.2); Glucose 91 mg/dL (70-99); Potassium 3.9 mmol/L (3.3-5.1)
--- NOTE | 2025-07-17 06:21 | NURSING ---
0620 epidural catheter removed, black tip intact
--- NOTE | 2025-07-17 07:14 | PN.OBGYN_ITS ---
Subjective Subjective Patient doing well without complaints. Tolerating PO. Ambulating and voiding without difficulty. Feeding well. Denies chest pain, shortness of breath, calf pain/swelling, fevers, chills, lightheadedness. Objective Data Objective Data Vital Signs: Vital Signs Temp Pulse Resp BP Pulse Ox O2 Del Method 97.3 F L 96 16 110/55 L 97 Room Air 07/17/25 06:30 07/17/25 06:30 07/17/25 06:30 07/17/25 06:30 07/17/25 06:30 07/17/25 06:30 Oxygen Delivery Method Room Air Weight: 181 lb Body Mass Index (BMI) 35.3 Intake & Output: Intake and Output for Last 24 Hours 07/15/25 07/16/25 07/17/25 23:59 23:59 23:59 Intake Total 3000.43 / 3000.43 Output Total 600 / 600 2550 / 2550 Balance 2400.43 / 2400.43 -2550 / -2550 Lab / Micro Data Attestation: I reviewed the patient's lab results. 07/17/25 05:40 07/17/25 05:40 Labs: Laboratory Results - last 24 hr 07/16/25 12:45: WBC 8.2, RBC 4.35, Hgb 13.6, Hct 39.5, MCV 90.8, MCH 31.3, MCHC 34.4, RDW Std Deviation 46.3 H, RDW Coeff of Edmond 14.4, Plt Count 177, MPV 9.3, Immature Gran % (Auto) 0.700, Neut % (Auto) 74.4 H, Lymph % (Auto) 18.5 L, [place] % (Auto) 5.7, Eos % (Auto) 0.5, Baso % (Auto) 0.2, Absolute Neuts (auto) 6.1, Absolute Lymphs (auto) 1.52, Nucleated RBC % 0, Syphilis Total Ab Reactive H, Blood Type A POSITIVE, Antibody Screen NEGATIVE, Crossmatch See Detail 07/16/25 12:47: POC Glucose 80 07/16/25 13:00: Sodium 137, Potassium 3.8, Chloride 106, Carbon Dioxide 18.8 L, Anion Gap 13, BUN 7, Creatinine 0.47 L, Estim Creat Clear Calc 167.68, Est GFR (MDRD) Non-Af 132, BUN/Creatinine Ratio 16.0, Glucose 83, Calcium 9.0 07/16/25 14:35: POC Glucose 83 07/16/25 16:00: POC Glucose 65 L 07/16/25 17:29: POC Glucose 76 07/16/25 18:15: Miscellaneous Test Cancelled 07/16/25 18:40: POC Glucose 93 07/16/25 22:15: POC Glucose 95 07/16/25 23:40: WBC 13.8 H, RBC 3.35 L, Hgb 10.8 L, Hct 31.4 L, MCV 93.7, MCH 32.2 H, MCHC 34.4, RDW Std Deviation 49.6 H, RDW Coeff of Edmond 14.7 H, Plt Count 169, MPV 9.5, Immature Gran % (Auto) 0.500, Neut % (Auto) 84.6 H, Lymph % (Auto) 8.7 L, [place] % (Auto) 6.0, Eos % (Auto) 0.1, Baso % (Auto) 0.1, Absolute Neuts (auto) 11.6 H, Absolute Lymphs (auto) 1.20, Nucleated RBC % 0 07/17/25 02:03: WBC 18.1 H, RBC 3.78 L, Hgb 11.6 L, Hct 37.2, MCV 98.4 D, MCH 30.7, MCHC 31.2 L D, RDW Std Deviation 52.6 H, RDW Coeff of Edmond 14.7 H, Plt Count 126 L, MPV 9.6, Immature Gran % (Auto) 0.800, Neut % (Auto) 85.8 H, Lymph % (Auto) 6.8 L, [place] % (Auto) 6.2, Eos % (Auto) 0.1, Baso % (Auto) 0.3, Absolute Neuts (auto) 15.6 H, Absolute Lymphs (auto) 1.24, Nucleated RBC % 0 07/17/25 05:40: WBC 10.6, RBC 2.83 L, Hgb 8.8 L, Hct 26.1 L, MCV 92.2 D, MCH 31.1, MCHC 33.7 D, RDW Std Deviation 49.4 H, RDW Coeff of Edmond 14.8 H, Plt Count 123 L, MPV 9.4, Sodium 136, Potassium 3.9, Chloride 108, Carbon Dioxide 17.1 L, Anion Gap 10, BUN 6, Creatinine 0.37 L, Estim Creat Clear Calc 213.00, Est GFR (MDRD) Non-Af 140, BUN/Creatinine Ratio 15.2, Glucose 91, Calcium 7.0 L, Total Bilirubin 1.05, AST 14, ALT 7, Alkaline Phosphatase 60, Total Protein 3.0 L, A lbumin 1.8 L, Globulin 1.2 L, Albumin/Globulin Ratio 1.5 ROS Constitutional Constitutional: Reports systems reviewed and no addt'l complaints, except as documented; Denies anorexia or headache(s) Cardiovascular Cardiovascular: Reports systems reviewed and no addt'l complaints, except as documented; Denies dizziness, dyspnea, nausea or tachypnea Respiratory/Chest Respiratory/Chest: Reports systems reviewed and no addt'l complaints, except as documented; Denies cough, dyspnea, shortness of breath at rest or tachypnea Gastrointestinal Gastrointestinal: Reports systems reviewed and no addt'l complaints, except as documented; Denies abdominal pain, constipation or nausea Genitourinary Genitourinary: Reports systems reviewed and no addt'l complaints, except as documented; Denies burning urination, difficulty urinating, dysuria, urinary frequency or urinary incontinence Musculoskeletal Musculoskeletal: Reports systems reviewed and no addt'l complaints, except as documented Integumentary Integumentary: Reports systems reviewed and no addt'l complaints, except as documented Neurologic Neurologic: Reports systems reviewed and no addt'l complaints, except as documented; Denies abnormal speech, dizziness or headache(s) Psychiatric Psychiatric: Reports systems reviewed and no addt'l complaints, except as documented Endocrine Endocrinology: Reports systems reviewed and no addt'l complaints, except as documented Hematologic/Lymphatic Hematologic/Lymphatic: Reports systems reviewed and no addt'l complaints, except as documented Physical Exam Const alert, oriented x3 and no apparent distress Neck full ROM Resp normal respiratory effort, normal air movement and no retractions Effort and Inspection: able to speak in complete sentences and symmetric chest movement GI soft to palpation Inspection: incision intact Bladder / Kidney Exam: bladder normal to palpation Extremity normal to inspection and full ROM Psych mental status grossly normal, thought process normal and cooperative Assessment & Plan (1) Status post emergency hysterectomy: PLAN: s/p LTCS PPD # 1 1. routine post hysterectomy care 2. breast feeding- support given 3. rh positive 4. rubella immune (2) Status post section: (3) Gestational diabetes: COMMENT: nutrition consult, started metformin- increased to bid, twice weekly nsts, plan IOL 38 weeks uncontrolled diabetes (4) Abnormal glucose tolerance test: COMMENT: unable to tolerate the glucola. vomited twice. plan to start checking levels. (5) Positive serology for syphilis: COMMENT: redraw at 21 weeks, confirmation [facility] test negative. (6) Supervision of high-risk : QUALIFIERS: Trimester: third trimester Qualified Code(s): O09.93 - Supervision of high risk , unspecified, third trimester COMMENT: PRR , BEE 07/31/25, PC: Aleksey Flores Kinsley & Juno, : Rodrick (7) : QUALIFIERS: Weeks of gestation: 37 weeks Qualified Code(s): Z 3A.37 - 37 weeks gestation of COMMENT: genetic low risk normal anatomy (8) Obesity affecting : QUALIFIERS: Trimester: second trimester Obesity type affecting : unspecified obesity Qualified Code(s): O99.212 - Obesity complicating , second trimester COMMENT: BMI 30.9, HgBA1C ordered w/NOB labs (9) History of pre-eclampsia in prior , currently : COMMENT: Baby ASA @ 12-28weeks; Pre-e baseline labs ordered w/NOB labs (10) History of vacuum extraction assisted delivery: COMMENT: First child (11) Hx of depression, currently : (12) Anxiety and depression: COMMENT: Not on meds - coping well (13) ASCUS of cervix with negative high risk HPV: COMMENT: 04/25/22 06/06/23 - Nml (14) Migraine with aura: Charges/Coding Multi Select Codes Urinary/Genital Urinary/Genital CPT Codes: No Charge
[2025-07-17] MEDS: Prenatal Vits Tablet 1 TABLET PO (08:40)
[2025-07-17] MEDS: metFORMIN (XR) 500 MG Tablet PO (08:40)
[2025-07-17] MEDS: Senna/Docusate Sodium 1 Tablet PO (08:41)
[2025-07-17] MEDS: Lactated Ringers 1,000 ML 999 ML IV (08:45)
--- NOTE | 2025-07-17 11:50 | CT_ITS ---
PROCEDURE: CT ABD/PELVIS W/WO CONTRAST 07/17/2025 REASON FOR EXAM: YUE HEMATURIA TECHNIQUE: Procedure Code: [id number] Modality: CT Procedure: CT ABD/PELVIS W/WO CONTRAST Coronal and Sagittal reconstruction series were provided. CONTRAST: Isovue-300 VOLUME: 98 mL One or more dose reduction techniques were used (e.g., Automated exposure control, adjustment of the mA and/or kV according to patient size, use of iterative reconstruction technique. RADIATION DOSE SUMMARY: CTDlvol: 24.83 mGy DLP: 3725.47 mGycm COMPARISON: None FINDINGS: Lung bases: Dependent atelectasis, scant pleural fluid. No cardiomegaly. No significant pericardial effusion. Liver: Tiny hypodensity in the posterior right hepatic lobe series 3, image 24, likely a small cyst. Gallbladder: Normal Spleen: Normal Pancreas: Normal Adrenals: Normal Kidneys: Normal. There is no radiopaque renal calculus. No hydronephrosis or hydroureter. Normal excretion of contrast into the ureters, bladder. Bladder: Nondistended. Macias catheter is in place. Reproductive Organs: Heterogeneous bulky appearance of the uterus. Fluid in the lower uterine segment. Postsurgical changes suggestive of recent section. Bowel: Mildly prominent jejunal loops in the left hemiabdomen series 3, image 53, with surrounding mild fat stranding. No bowel obstruction. Appendix: Unremarkable Lymph nodes: No suspicious lymph node enlargement. Vasculature: Within normal limits for recent gestation. Peritoneum / Retroperitoneum: No yue ascites. Bones: Unremarkable Postsurgical changes in the lower abdomen. No hematoma or fluid collection. CT/CT Abd/Pelvis W/WO Contrast IMPRESSION: 1. No renal or ureteral calculi. There is no hydronephrosis or hydroureter. T he kidneys enhance normally, with normal excretion of contrast. 2. Probable mild small bowel ileus. 3. Postsurgical changes. Reading Location: [id number]
[2025-07-17 12:56] LABS: Hematocrit 27.6 % (37-47); Hemoglobin 9.3 g/dL (12.0-15.0); Immature Granulocytes Count 0.040 X10^3/uL (0.0-0.0); Mean Corp Hgb Conc 33.7 g/dL (32-36); Mean Corpuscular Volume 92.6 fL (81-99); Mean Platelet Vol. 9.1 fl (6.2-12.0); NRBC Flagged by Analyzer 0 % (0-5); Platelet Count 134 K/mm3 (150-450); RBC Distribution Width CV 15.2 % (11.6-14.6); RBC Distribution Width SD 50.5 fl (35.1-43.9); Red Blood Count 2.98 M/mm3 (4.2-5.4); White Blood Count 7.7 K/mm3 (4.4-11.0)
[2025-07-17 13:46] LABS: AST(SGOT) 18 U/L (<=31); Alanine Aminotransfer ALT/SGPT 8 U/L (<=34); Albumin, Serum 2.2 g/dL (3.5-5.0); Alkaline Phosphatase 71 U/L (35-104); Anion Gap 7 (5-15); BUN 7 mg/dL (4-19); BUN/Creat Ratio 11.1 RATIO (10-20); Calcium,Total 7.7 mg/dL (7.6-11.0); Carbon Dioxide 22.1 mmol/L (21.0-32.0); Chloride 109 mmol/L (98-108); Estimated Creatinine Clearance 127.11 ml/min (50-250); Globulin 1.6 g/dL (2.2-4.2); Glucose 125 mg/dL (70-99); Potassium 3.9 mmol/L (3.3-5.1)
--- NOTE | 2025-07-17 13:53 | PN.OBGYN_ITS ---
Subjective Subjective Patient doing well without complaints. Tolerating PO. Ambulating and voiding without difficulty. Feeding well. Denies chest pain, shortness of breath, calf pain/swelling, fevers, chills, lightheadedness. A CT was ordered for intraoperative hematuria and was reassuring that the ureters are draining into the bladder adequately. It did also show that she has the start of a small bowel ileus and she is not passing gas. Objective Data Objective Data Vital Signs: Vital Signs Temp Pulse Resp BP Pulse Ox O2 Del Method 97.4 F L 91 16 109/59 L 100 Room Air 07/17/25 12:15 07/17/25 12:15 07/17/25 12:15 07/17/25 12:15 07/17/25 12:15 07/17/25 12:15 Oxygen Delivery Method Room Air Weight: 181 lb Body Mass Index (BMI) 35.3 Intake & Output: Intake and Output for Last 24 Hours 07/15/25 07/16/25 07/17/25 23:59 23:59 23:59 Intake Total 3000.43 / 3000.43 2149.17 / 2149.17 Output Total 600 / 600 2650 / 2650 Balance 2400.43 / 2400.43 -500.83 / -500.83 Lab / Micro Data 07/17/25 12:45 07/17/25 12:45 Labs: Laboratory Results - last 24 hr 07/16/25 12:45: Syphilis Total Ab Reactive H, Crossmatch See Detail 07/16/25 13:00: Sodium 137, Potassium 3.8, Chloride 106, Carbon Dioxide 18.8 L, Anion Gap 13, BUN 7, Creatinine 0.47 L, Estim Creat Clear Calc 167.68, Est GFR (MDRD) Non-Af 132, BUN/Creatinine Ratio 16.0, Glucose 83, Calcium 9.0 07/16/25 14:35: POC Glucose 83 07/16/25 16:00: POC Glucose 65 L 07/16/25 17:29: POC Glucose 76 07/16/25 18:15: Miscellaneous Test Cancelled 07/16/25 18:40: POC Glucose 93 07/16/25 22:15: POC Glucose 95 07/16/25 23:40: WBC 13.8 H, RBC 3.35 L, Hgb 10.8 L, Hct 31.4 L, MCV 93.7, MCH 32.2 H, MCHC 34.4, RDW Std Deviation 49.6 H, RDW Coeff of Edmond 14.7 H, Plt Count 169, MPV 9.5, Immature Gran % (Auto) 0.500, Neut % (Auto) 84.6 H, Lymph % (Auto) 8.7 L, Alexander % (Auto) 6.0, Eos % (Auto) 0.1, Baso % (Auto) 0.1, Absolute Neuts (auto) 11.6 H, Absolute Lymphs (auto) 1.20, Nucleated RBC % 0 07/17/25 02:03: WBC 18.1 H, RBC 3.78 L, Hgb 11.6 L, Hct 37.2, MCV 98.4 D, MCH 30.7, MCHC 31.2 L D, RDW Std Deviation 52.6 H, RDW Coeff of Edmond 14.7 H, Plt Count 126 L, MPV 9.6, Immature Gran % (Auto) 0.800, Neut % (Auto) 85.8 H, Lymph % (Auto) 6.8 L, Alexander % (Auto) 6.2, Eos % (Auto) 0.1, Baso % (Auto) 0.3, Absolute Neuts (auto) 15.6 H, Absolute Lymphs (auto) 1.24, Nucleated RBC % 0 07/17/25 05:40: WBC 10.6, RBC 2.83 L, Hgb 8.8 L, Hct 26.1 L, MCV 92.2 D, MCH 31.1, MCHC 33.7 D, RDW Std Deviation 49.4 H, RDW Coeff of Edmond 14.8 H, Plt Count 123 L, MPV 9.4, Sodium 136, Potassium 3.9, Chloride 108, Carbon Dioxide 17.1 L, Anion Gap 10, BUN 6, Creatinine 0.37 L, Estim Creat Clear Calc 213.00, Est GFR (MDRD) Non-Af 140, BUN/Creatinine Ratio 15.2, Glucose 91, Calcium 7.0 L, Total Bilirubin 1.05, AST 14, ALT 7, Alkaline Phosphatase 60, Total Protein 3.0 L, A lbumin 1.8 L, Globulin 1.2 L, Albumin/Globulin Ratio 1.5 07/17/25 12:45: WBC 7.7, RBC 2.98 L, Hgb 9.3 L, Hct 27.6 L, MCV 92.6, MCH 31.2, MCHC 33.7, RDW Std Deviation 50.5 H, RDW Coeff of Edmond 15.2 H, Plt Count 134 L, MPV 9.1, Immature Gran % (Auto) 0.500, Neut % (Auto) 75.3 H, Lymph % (Auto) 17.6 L, Alexander % (Auto) 6.1, Eos % (Auto) 0.4, Baso % (Auto) 0.1, Absolute Neuts (auto) 5.8, Absolute Lymphs (auto) 1.36, Nucleated RBC % 0, Sodium 138, Potassium 3.9, Chloride 109 H, Carbon Dioxide 22.1, Anion Gap 7, BUN 7, Creatinine 0.62 L, Estim Creat Clear Calc 127.11, Est GFR (MDRD) Non-Af 123, BUN/Creatinine Ratio 11.1, Glucose 125 H, Calcium 7.7, Total Bilirubin 0.43, AST 18, ALT 8, Alkaline Phosphatase 71, Total Protein 3.8 L, Albumin 2.2 L, Globulin 1.6 L, Albumin/Globulin Ratio 1.3 Radiography Diagnostic Testing: Radiology Impression Abdomen/Pelvis CT 07/17/25 11:50 IMPRESSION: 1. No renal or ureteral calculi. There is no hydronephrosis or hydroureter. The kidneys enhance normally, with normal excretion of contrast. 2. Probable mild small bowel ileus. 3. Postsurgical changes. Reading Location: [id number] ROS Constitutional Constitutional: Denies chills, fatigue, fever(s), poor appetite or weakness Eyes Eyes: Denies blurry vision, change in vision, seeing flashes or spots in vision ENT HEENT: Denies dizziness, headache(s), loss taste/smell or sore throat Cardiovascular Cardiovascular: Denies chest pain, dizziness, dyspnea, irregular heart rhythm, palpitations or rapid heart rate Respiratory/Chest Respiratory/Chest: Denies chest tightness, cough, dyspnea or breast pain Gastrointestinal Gastrointestinal: Denies abdominal pain, constipation or vomiting Genitourinary Genitourinary: Denies dysuria or flank pain Musculoskeletal Musculoskeletal: Denies difficulty walking, joint pain, limited range of motion or numbness Neurologic Neurologic: Denies abnormal movements, abnormal speech, dizziness, numbness, seizure-like activity or syncope Psychiatric Psychiatric: Denies anxiety, behavioral changes, change in appetite, confusion, depression or suicidal thoughts Physical Exam Const alert, oriented x3 and no apparent distress General Appearance: cooperative and comfortable Resp normal respiratory effort Cardio regular rate GI normal to inspection, nondistended, normoactive bowel sounds GI Narrative: uterus is firm below umbilicus Palpation: soft Back/Spine no CVA tenderness and thoraco-lumbar ROM normal Extremity normal to inspection, no clubbing, cyanosis or edema, no calf tenderness and no pedal edema Psych mental status grossly normal, thought process normal, cooperative, affect normal, speech normal, activity/motor behavior normal, denies homicidal ideation and denies suicidal ideation Assessment & Plan (1) Status post emergency hysterectomy: (2) Gestational diabetes: COMMENT: nutrition consult, started metformin- increased to bid, twice weekly nsts, plan IOL 38 weeks uncontrolled diabetes (3) Positive serology for syphilis: COMMENT: redraw at 21 weeks, confirmation [facility] test negative. (4) Supervision of high-risk : QUALIFIERS: Trimester: third trimester Qualified Code(s): O09.93 - Supervision of high risk , unspecified, third trimester COMMENT: PRR , BEE 07/31/25, PC: Aleksey Flores Kinsley & Juno, : Rodrick (5) Obesity affecting : QUALIFIERS: Trimester: second trimester Obesity type affecting : unspecified obesity Qualified Code(s): O99.212 - Obesity complicating , second trimester COMMENT: BMI 30.9, HgBA1C ordered w/NOB labs (6) History of pre-eclampsia in prior , currently : COMMENT: Baby ASA @ 12-28weeks; Pre-e baseline labs ordered w/NOB labs (7) History of vacuum extraction assisted delivery: COMMENT: First child (8) Hx of depression, currently : (9) Anxiety and depression: COMMENT: Not on meds - coping well (10) ASCUS of cervix with negative high risk HPV: COMMENT: 04/25/22 06/06/23 - Nml (11) Migraine with aura: PLAN: Plan s/p c-hyst day#0 1. maintain sosa catheter until after Dr. Chisholm can do a cystoscopy to confirm that the yue hematuria during surgery is not a concern. start prophylactic antibiotics keflex 500 daily. 2. breast feeding- support given 3. rh positive 4. rubella immune 5. plan to rpt cbc and cmp tomorrow.
--- NOTE | 2025-07-17 14:40 | CASEMGMT ---
Social Work Assessment Labor and Delivery Unit Patient Address: [address] [place], [place] [address] [id number] Phone number: [phone] Date of Referral: 07/17/2025 Time of Referral: 04:48 Referred By: Heidi Mayer Date of Intervention: 07/17/2025 Time of Intervention: 14:40 Reason for Referral: Mental Health/History of Depression. ? History obtained from: Mother of baby (MOB), father of baby (FOB/Rodrick Em, age 30) and medical record review. ?? Household composition: MOB, FOB, MOB?s 11-year-old (yo) daughter Marco A Christensen and MOB and FOB?s 8yo son Aleksey, 5yo daughter Dashawn, 2yo son Juno and son Marco Antonio Em, born on 07/16/25. Patient's parent/guardian status: MOB and FOB have been together for 9 years and are not . ???MOB denied any previous or current issues of domestic violence and described a positive relationship with the FOB. MOB and FOB both denied having any other children. Medical History: : 5, Para, now 5. MOB received PNC through [facility] beginning at 8 weeks and 6 days. Visits were observed to be routine. Apgars: 8 and 9. Weight: 8lbs, 0oz. Hearth Feeder: Maria Del Carmen with [facility]. ? Educational Status: MOB and FOB denied any issues with reading, writing or learning comprehension. MOB and FOB both earned their high school diplomas. Financial Status: MOB and FOB reported that their income is sufficient to meet the needs of their family at this time. MOB is a [id number] (SAHM) and the FOB owns his own [employer] business. Infant Supplies: MOB and FOB reported they have the supplies they need for baby at this time including but not limited to: Car seat, bassinet, crib, diapers, bottles, breast pump, formula and clothing. Childcare/Caregiver(s): MOB reported that as a SAHM, she will be the primary caregiver, and the FOB will also assist with childcare during the times he is not working. Transportation: Both MOB and FOB are licensed drivers and have a reliable vehicle to get baby to and from all medical appointments. MOB and FOB denied any issues/barriers to transportation at this time. Programs/Agencies Involved: ?Medicaid through the Department of Job and Family [employer]. MOB also has plans to apply for food stamps. MOM used to be involved in [employer] for counseling services in [place] ?a long time ago? and described a positive experience. Children Services/Legal Issues: MOB and FOB denied any previous or current Children Services and/or ?legal involvement. Behavioral Health Issues: None reported. ? Mental Health History: ?MOB has a history of anxiety, depression, and PPD. MOB is not currently on medication and described her symptoms as being managed at this time. MOB reported she had PPD with all of her children except her last (2yo Jackson). MOB reported that for her, she felt a lot of sadness, felt overwhelmed and angry. MOB reported she knows the signs/symptoms to look for and is able to ask for help if/when needed. Information Technology Security Analyst recommended the MOB to go ahead and get a follow up appointment with her doctor scheduled. ?FOB denied any mental health history. Information Technology Security Analyst completed the [place] Depression Scale (EPDS) with the MOB. MOB?s score was a 1. Information Technology Security Analyst provided education about the score which the MOB verbalized she understood. Substance Use History:?? MOB and FOB denied any previous or current drug and/or alcohol abuse. ? Family History: MOB reported her sister and her father have a history of depression and stated that there is ?a lot of bipolar in my family?. FOB denied any mental health history on his side of the family and both MOB and FOB denied any history of drug and/or alcohol abuse on either side of the family. ?? Drug Screens: No drug screens were obtained for the MOB or baby during this hospital admission. Family/Social Stressors:?? Denied. Support Systems:? MOB identified her biggest support as the FOB, family as well as both of their parents whom the MOB described as ?very involved?. Depression/Shaken Baby/Safe Sleeping: Information Technology Security Analyst provided verbal and written education on PPD, increased risk factors for PPD, Safe Sleeping and Shaken Baby.? MOB and FOB both verbalized an understanding.??? ASSESSMENT: MOB and FOB provided consent to social work visit. Upon arrival, the MOB was sitting in a chair and the FOB was out getting food to bring back to the hospital. The FOB did come back to the room while psychologist social was still present. MOB and FOB were both verbally engaged, and cooperative. Information Technology Security Analyst observed positive interaction between the MOB and FOB as well as with the MOB and . MOB was observed to be very attentive and gentle to and ?s needs. ??At the end of the assessment, Information Technology Security Analyst requested to speak with the MOB alone, which she and the FOB were both agreeable to. MOB reported feeling safe in her home and denied any previous or current domestic violence, unmanaged mental health issues either with herself or with the FOB, and also denied any concerns with any drug or alcohol abuse either with herself or with the FOB as well as any unmanaged mental health concerns. Safe Plan of Care for infant related to substance use: N/A PLAN: For MOB and baby to be discharged when medically ready. No other services requested or indicated. Heidi Vincent, TDP DISPLAYS ANALYST, CARPET MECHANIC
[2025-07-18 01:42] VITALS: RESP 16
[2025-07-18 03:19] VITALS: BP 124/69; PULSE 80; RESP 16; TEMP 36.6; O2SAT 99
[2025-07-18] MEDS: Lactated Ringers 1,000 ML 100 ML IV (05:15)
[2025-07-18 05:34] LABS: Hematocrit 24.7 % (37-47); Hemoglobin 8.4 g/dL (12.0-15.0); Immature Granulocytes Count 0.050 X10^3/uL (0.0-0.0); Mean Corp Hgb Conc 34.0 g/dL (32-36); Mean Corpuscular Volume 92.5 fL (81-99); Mean Platelet Vol. 9.0 fl (6.2-12.0); NRBC Flagged by Analyzer 0 % (0-5); Platelet Count 135 K/mm3 (150-450); RBC Distribution Width CV 15.5 % (11.6-14.6); RBC Distribution Width SD 51.1 fl (35.1-43.9); Red Blood Count 2.67 M/mm3 (4.2-5.4); White Blood Count 6.9 K/mm3 (4.4-11.0)
[2025-07-18 06:14] LABS: AST(SGOT) 17 U/L (<=31); Alanine Aminotransfer ALT/SGPT 9 U/L (<=34); Albumin, Serum 2.1 g/dL (3.5-5.0); Alkaline Phosphatase 62 U/L (35-104); Anion Gap 7 (5-15); BUN 7 mg/dL (4-19); BUN/Creat Ratio 16.5 RATIO (10-20); Calcium,Total 7.5 mg/dL (7.6-11.0); Carbon Dioxide 22.1 mmol/L (21.0-32.0); Chloride 110 mmol/L (98-108); Estimated Creatinine Clearance 183.28 ml/min (50-250); Globulin 1.7 g/dL (2.2-4.2); Glucose 77 mg/dL (70-99); Potassium 3.8 mmol/L (3.3-5.1)
[2025-07-18 08:19] VITALS: BP 93/64; PULSE 75; RESP 16; TEMP 36.6; O2SAT 97
--- NOTE | 2025-07-18 09:04 | PN.OBGYN_ITS ---
Subjective Subjective Patient doing well without complaints. Tolerating PO. Ambulating and voiding without difficulty. Feeding well. Denies chest pain, shortness of breath, calf pain/swelling, fevers, chills, lightheadedness. no sx with hgb of 8.4 Objective Data Objective Data Vital Signs: Vital Signs Temp Pulse Resp BP Pulse Ox O2 Del Method 97.9 F 75 16 93/64 97 Room Air 07/18/25 08:19 07/18/25 08:19 07/18/25 08:19 07/18/25 08:19 07/18/25 08:19 07/18/25 08:19 Oxygen Delivery Method Room Air Weight: 181 lb Body Mass Index (BMI) 35.3 Intake & Output: Intake and Output for Last 24 Hours 07/16/25 07/17/25 07/18/25 23:59 23:59 23:59 Intake Total 3000.43 / 3000.43 2900.00 / 2900.00 1000 / 1000 Output Total 600 / 600 3800 / 3800 900 / 900 Balance 2400.43 / 2400.43 -900.00 / -900.00 100 / 100 Lab / Micro Data Attestation: I reviewed the patient's lab results. 07/18/25 05:25 07/18/25 05:25 Labs: Laboratory Results - last 24 hr 07/17/25 12:45: WBC 7.7, RBC 2.98 L, Hgb 9.3 L, Hct 27.6 L, MCV 92.6, MCH 31.2, MCHC 33.7, RDW Std Deviation 50.5 H, RDW Coeff of Edmond 15.2 H, Plt Count 134 L, MPV 9.1, Immature Gran % (Auto) 0.500, Neut % (Auto) 75.3 H, Lymph % (Auto) 17.6 L, Delta % (Auto) 6.1, Eos % (Auto) 0.4, Baso % (Auto) 0.1, Absolute Neuts (auto) 5.8, Absolute Lymphs (auto) 1.36, Nucleated RBC % 0, Sodium 138, Potassium 3.9, Chloride 109 H, Carbon Dioxide 22.1, Anion Gap 7, BUN 7, Creatinine 0.62 L, Estim Creat Clear Calc 127.11, Est GFR (MDRD) Non-Af 123, BUN/Creatinine Ratio 11.1, Glucose 125 H, Calcium 7.7, Total Bilirubin 0.43, AST 18, ALT 8, Alkaline Phosphatase 71, Total Protein 3.8 L, Albumin 2.2 L, Globulin 1.6 L, Albumin/Globulin Ratio 1.3 07/18/25 05:25: WBC 6.9, RBC 2.67 L, Hgb 8.4 L, Hct 24.7 L, MCV 92.5, MCH 31.5, MCHC 34.0, RDW Std Deviation 51.1 H, RDW Coeff of Edmond 15.5 H, Plt Count 135 L, MPV 9.0, Immature Gran % (Auto) 0.700, Neut % (Auto) 67.2, Lymph % (Auto) 24.6, Delta % (Auto) 5.3, Eos % (Auto) 1.9, Baso % (Auto) 0.3, Absolute Neuts (auto) 4.7, Absolute Lymphs (auto) 1.71, Nucleated RBC % 0, Sodium 139, Potassium 3.8, Chloride 110 H, Carbon Dioxide 22.1, Anion Gap 7, BUN 7, Creatinine 0.43 L, Estim Creat Clear Calc 183.28, Est GFR (MDRD) Non-Af 135, BUN/Creatinine Ratio 16.5, Glucose 77, Calcium 7.5 L, Total Bilirubin 0.19, AST 17, ALT 9, Alkaline Phosphatase 62, Total Protein 3.8 L, Albumin 2.1 L, Globulin 1.7 L, Albumin/Globulin Ratio 1.2 Radiography Diagnostic Testing: Radiology Impression Abdomen/Pelvis CT 07/17/25 11:50 IMPRESSION: 1. No renal or ureteral calculi. There is no hydronephrosis or hydroureter. The kidneys enhance normally, with normal excretion of contrast. 2. Probable mild small bowel ileus. 3. Postsurgical changes. Reading Location: [id number] ROS Constitutional Constitutional: Reports systems reviewed and no addt'l complaints, except as documented; Denies anorexia or headache(s) Cardiovascular Cardiovascular: Reports systems reviewed and no addt'l complaints, except as documented; Denies dizziness, dyspnea, nausea or tachypnea Respiratory/Chest Respiratory/Chest: Reports systems reviewed and no addt'l complaints, except as documented; Denies cough, dyspnea, shortness of breath at rest or tachypnea Gastrointestinal Gastrointestinal: Reports systems reviewed and no addt'l complaints, except as documented; Denies abdominal pain, constipation or nausea Genitourinary Genitourinary: Reports systems reviewed and no addt'l complaints, except as documented; Denies burning urination, difficulty urinating, dysuria, urinary frequency or urinary incontinence Musculoskeletal Musculoskeletal: Reports systems reviewed and no addt'l complaints, except as documented Integumentary Integumentary: Reports systems reviewed and no addt'l complaints, except as documented Neurologic Neurologic: Reports systems reviewed and no addt'l complaints, except as documented; Denies abnormal speech, dizziness or headache(s) Psychiatric Psychiatric: Reports systems reviewed and no addt'l complaints, except as documented Endocrine Endocrinology: Reports systems reviewed and no addt'l complaints, except as documented Hematologic/Lymphatic Hematologic/Lymphatic: Reports systems reviewed and no addt'l complaints, except as documented Physical Exam Const alert, oriented x3 and no apparent distress Neck full ROM Resp normal respiratory effort, normal air movement and no retractions Effort and Inspection: able to speak in complete sentences and symmetric chest movement GI soft to palpation Bladder / Kidney Exam: bladder normal to palpation Uterus Palpation: uterus fundus firm Extremity normal to inspection and full ROM Psych mental status grossly normal, thought process normal and cooperative Assessment & Plan (1) Status post emergency hysterectomy: PLAN: s/p LTCS PPD # 2 1. routine post care 2. breast feeding- support given 3. rh positive 4. rubella immune (2) Status post section: (3) Gestational diabetes: COMMENT: nutrition consult, started metformin- increased to bid, twice weekly nsts, plan IOL 38 weeks uncontrolled diabetes (4) Abnormal glucose tolerance test: COMMENT: unable to tolerate the glucola. vomited twice. plan to start checking levels. (5) Positive serology for syphilis: COMMENT: redraw at 21 weeks, confirmation [facility] test negative. (6) Supervision of high-risk : QUALIFIERS: Trimester: third trimester Qualified Code(s): O09.93 - Supervision of high risk , unspecified, third trimester COMMENT: PRR , BEE 07/31/25, PC: Aleksey Flores Kinsley & Juno, : Rodrick (7) : QUALIFIERS: Weeks of gestation: 37 weeks Qualified Code(s): Z 3A.37 - 37 weeks gestation of COMMENT: genetic low risk normal anatomy (8) Obesity affecting : QUALIFIERS: Trimester: second trimester Obesity type affecting : unspecified obesity Qualified Code(s): O99.212 - Obesity complicating , second trimester COMMENT: BMI 30.9, HgBA1C ordered w/NOB labs (9) History of pre-eclampsia in prior , currently : COMMENT: Baby ASA @ 12-28weeks; Pre-e baseline labs ordered w/NOB labs (10) History of vacuum extraction assisted delivery: COMMENT: First child (11) Hx of depression, currently : (12) Anxiety and depression: COMMENT: Not on meds - coping well (13) ASCUS of cervix with negative high risk HPV: COMMENT: 04/25/22 06/06/23 - Nml (14) Migraine with aura: Charges/Coding Multi Select Codes Urinary/Genital Urinary/Genital CPT Codes: No Charge
[2025-07-18] MEDS: Prenatal Vits Tablet 1 TABLET PO (09:25)
[2025-07-18] MEDS: Senna/Docusate Sodium 1 Tablet PO (09:25)
[2025-07-18 11:07] LABS: RPR, RFX QN Non Reactive (Non Reactive)
[2025-07-18] MEDS: metFORMIN (XR) 500 MG Tablet PO (12:09)
[2025-07-18 12:13] VITALS: BP 124/76; PULSE 80; RESP 16; TEMP 36.4; O2SAT 98
--- NOTE | 2025-07-18 12:49 | PCM.CONS.GEN ---
Assessment & Plan Assessment/Plan (1) Gross hematuria: PLAN: Plan Continue Macias catheter until cystoscopy can be performed under anesthesia tomorrow. The procedure, recovery and expectations were explained. The risks, benefits and alternatives were discussed, including but not limited to, the risks of anesthesia, bleeding, infection, injury, pain and the need for further intervention. We have discussed the risk of exposure to and/or potential harm posed by the COVID-19 virus with having a surgery/procedure at this time. A joint decision was made at this time to proceed with the scheduled surgery/procedure as indicated on the consent form. HPI Consult Data Date of Consult: 07/18/25 HPI Narrative Reason for Consultation: Gross hematuria intraoperatively HPI Narrative: RAISA HERNANDEZ, is a 30 F who is now status post section with hysterectomy who had gross hematuria during the procedure. She has no prior history of any urologic issues including infections, obstruction, stones or incontinence. She is feeling okay with no significant complaints aside from fatigue this morning and being a little bit sore. Her urine has been draining clear since she has been in her room and awake. [facility] Medical History Hx of depression, currently Abnormal thyroid function test Anxiety and depression Home Medications ?Medication ?Instructions ?Recorded ?Last Taken ?Type docosahexaenoic acid 200 mg 200 mg PO DAILY 12/11/24 07/16/25 History capsule ( DHA) flash glucose scanning reader #1 ea 05/28/25 Unknown Rx (FreeStyle Marcos 2 [place]) flash glucose sensor (FreeStyle #1 ea 05/28/25 Unknown Rx Marcos 2 Sensor kit) metformin 500 mg tablet,extended 500 mg PO QDAY gdm #30 tabs 07/08/25 07/16/25 Rx release 24 hr (Glucophage XR) ibuprofen 800 mg tablet 800 mg PO Q8H PRN pain #30 tabs 07/16/25 Unknown Rx oxycodone-acetaminophen 5 mg-325 1 tab PO Q4H PRN pain 7 days #20 07/16/25 Unknown Rx mg tablet (Percocet) tabs Allergy/AdvReac Type Severity Reaction Status Date / Time No Known Allergies Allergy Verified 07/16/25 12:55 Surgical History History of vacuum extraction assisted delivery Social History adopted: No household members: significant other and children housing: house number of children: 4 current occupational status: unemployed current occupation: [employer] current occupational exposures/hazards: No pets and animals: Yes pets and animals: dog(s) history of recent travel: No sexually active: Yes Smoking Status: Never smoker second hand exposure: No alcohol intake: never substance use type: does not use well-balanced diet: daily or most days caffeine: No eating out: rarely or never during the past year weight has: increased > 10 lbs what type of physical activity do you participate in: walking frequency: 5-6 times per week duration: 30-45 minutes/day aliza/pentecostal: None seatbelt use: always do you feel safe at home: Yes additional social history: : 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 ROS Constitutional Constitutional: Denies chills or fever(s) Eyes Eyes: Reports systems reviewed and no addt'l complaints, except as documented ENT HEENT: Reports systems reviewed and no addt'l complaints, except as documented Cardiovascular Cardiovascular: Denies chest pain or dyspnea Respiratory/Chest Respiratory/Chest: Denies chest tightness, cough, dyspnea or inability to speak Gastrointestinal Gastrointestinal: Reports other Details: Abdominal soreness ; Denies nausea or vomiting Genitourinary Genitourinary: Reports hematuria; Denies difficulty urinating or flank pain Musculoskeletal Musculoskeletal: Reports systems reviewed and no addt'l complaints, except as documented Integumentary Integumentary: Reports systems reviewed and no addt'l complaints, except as documented Neurologic Neurologic: Reports systems reviewed and no addt'l complaints, except as documented and headache(s) Psychiatric Psychiatric: Reports systems reviewed and no addt'l complaints, except as documented Endocrine Endocrinology: Reports systems reviewed and no addt'l complaints, except as documented Hematologic/Lymphatic Hematologic/Lymphatic: Reports systems reviewed and no addt'l complaints, except as documented Allergic/Immunologic Allergic/Immunologic: Reports systems reviewed and no addt'l complaints, except as documented Physical Exam Const alert, oriented x3 and no apparent distress Constitutional Narrative: Resting in a recliner at the time of exam. General Appearance: well kempt and well developed HEENT normocephalic, head/scalp atraumatic, hearing grossly normal bilaterally, external ears normal, external nose normal and moist oral mucous membranes Eyes General Eye: normal appearance of both eyes Neck supple General: trachea midline Chest inspection of chest normal Chest: symmetrical chest wall rise Resp normal respiratory effort, normal air movement and no retractions Cardio regular rate GI soft to palpation and non-distended Narrative: Urine in Macias catheter is clear Extremity Extremity Narrative: Upper extremities normal to visualization Skin no rashes or lesions noted, no jaundice and no petechiae Neuro oriented x3, CN's II-XII intact bilaterally and moves all extremities Psych mental status grossly normal and thought process normal Lab / Micro Data 07/18/25 05:25 07/18/25 05:25 Labs: Laboratory Results - last 24 hr 07/16/25 18:15: RPR w/Rflx to Titer Non Reactive 07/17/25 12:45: WBC 7.7, RBC 2.98 L, Hgb 9.3 L, Hct 27.6 L, MCV 92.6, MCH 31.2, MCHC 33.7, RDW Std Deviation 50.5 H, RDW Coeff of Edmond 15.2 H, Plt Count 134 L, MPV 9.1, Immature Gran % (Auto) 0.500, Neut % (Auto) 75.3 H, Lymph % (Auto) 17.6 L, [place] % (Auto) 6.1, Eos % (Auto) 0.4, Baso % (Auto) 0.1, Absolute Neuts (auto) 5.8, Absolute Lymphs (auto) 1.36, Nucleated RBC % 0, Sodium 138, Potassium 3.9, Chloride 109 H, Carbon Dioxide 22.1, Anion Gap 7, BUN 7, Creatinine 0.62 L, Estim Creat Clear Calc 127.11, Est GFR (MDRD) Non-Af 123, BUN/Creatinine Ratio 11.1, Glucose 125 H, Calcium 7.7, Total Bilirubin 0.43, AST 18, ALT 8, Alkaline Phosphatase 71, Total Protein 3.8 L, Albumin 2.2 L, Globulin 1.6 L, Albumin/Globulin Ratio 1.3 07/18/25 05:25: WBC 6.9, RBC 2.67 L, Hgb 8.4 L, Hct 24.7 L, MCV 92.5, MCH 31.5, MCHC 34.0, RDW Std Deviation 51.1 H, RDW Coeff of Edmond 15.5 H, Plt Count 135 L, MPV 9.0, Immature Gran % (Auto) 0.700, Neut % (Auto) 67.2, Lymph % (Auto) 24.6, [place] % (Auto) 5.3, Eos % (Auto) 1.9, Baso % (Auto) 0.3, Absolute Neuts (auto) 4.7, Absolute Lymphs (auto) 1.71, Nucleated RBC % 0, Sodium 139, Potassium 3.8, Chloride 110 H, Carbon Dioxide 22.1, Anion Gap 7, BUN 7, Creatinine 0.43 L, Estim Creat Clear Calc 183.28, Est GFR (MDRD) Non-Af 135, BUN/Creatinine Ratio 16.5, Glucose 77, Calcium 7.5 L, Total Bilirubin 0.19, AST 17, ALT 9, Alkaline Phosphatase 62, Total Protein 3.8 L, Albumin 2.1 L, Globulin 1.7 L, Albumin/Globulin Ratio 1.2 07/18/25 11:27: POC Glucose 105 Imaging Radiology Impression Abdomen/Pelvis CT 07/17/25 11:50 IMPRESSION: 1. No renal or ureteral calculi. There is no hydronephrosis or hydroureter. The kidneys enhance normally, with normal excretion of contrast. 2. Probable mild small bowel ileus. 3. Postsurgical changes. Reading Location: [id number] Charges/Coding Urology Urology: Attention Vik
[2025-07-18] MEDS: 0.9% Saline Lock 10 ML Syringe IV ×2 (13:53→15:55)
[2025-07-18 16:00] VITALS: BP 126/82; PULSE 75; RESP 16; TEMP 36.6; O2SAT 98
[2025-07-18 16:02] LABS: Hematocrit 27.5 % (37-47); Hemoglobin 9.2 g/dL (12.0-15.0); Immature Granulocytes Count 0.090 X10^3/uL (0.0-0.0); Mean Corp Hgb Conc 33.5 g/dL (32-36); Mean Corpuscular Volume 92.9 fL (81-99); Mean Platelet Vol. 9.1 fl (6.2-12.0); NRBC Flagged by Analyzer 0 % (0-5); Platelet Count 160 K/mm3 (150-450); RBC Distribution Width CV 15.4 % (11.6-14.6); RBC Distribution Width SD 51.5 fl (35.1-43.9); Red Blood Count 2.96 M/mm3 (4.2-5.4); White Blood Count 8.1 K/mm3 (4.4-11.0)
[2025-07-18 20:16] VITALS: BP 123/72; PULSE 84; RESP 16; TEMP 36.6; O2SAT 98
[2025-07-19] VITALS (11 sets, daily range): BP systolic 116–135; BP diastolic 61–88; PULSE 65–84; RESP 12–20; TEMP 36.1–36.6; O2SAT 96–98
[2025-07-19] MEDS: Prenatal Vits Tablet 1 TABLET PO (08:40)
[2025-07-19] MEDS: Senna/Docusate Sodium 1 Tablet PO (08:40)
--- NOTE | 2025-07-19 08:40 | PCM.PN.OB ---
Subjective Subjective Patient doing well without complaints. Tolerating PO. Ambulating and voiding without difficulty. Feeding well. Denies chest pain, shortness of breath, calf pain/swelling, fevers, chills, lightheadedness. Objective Data Objective Data Vital Signs: Vital Signs Temp Pulse Resp BP Pulse Ox O2 Del Method 97.2 F L 70 16 135/69 H 97 Room Air 07/19/25 02:58 07/19/25 02:58 07/19/25 02:58 07/19/25 02:58 07/19/25 02:58 07/19/25 02:58 Oxygen Delivery Method Room Air Weight: 181 lb Body Mass Index (BMI) 35.3 Intake & Output: Intake and Output for Last 24 Hours 07/17/25 07/18/25 07/19/25 23:59 23:59 23:59 Intake Total 2900.00 / 2900.00 1275 / 1275 Output Total 3800 / 3800 3650 / 3650 900 / 900 Balance -900.00 / -900.00 -2375 / -2375 -900 / -900 Lab / Micro Data 07/18/25 15:45 07/18/25 05:25 Labs: Laboratory Results - last 24 hr 07/16/25 18:15: RPR w/Rflx to Titer Non Reactive 07/18/25 11:27: POC Glucose 105 07/18/25 15:41: POC Glucose 86 07/18/25 15:45: WBC 8.1, RBC 2.96 L, Hgb 9.2 L, Hct 27.5 L, MCV 92.9, MCH 31.1, MCHC 33.5, RDW Std Deviation 51.5 H, RDW Coeff of Edmond 15.4 H, Plt Count 160, MPV 9.1, Immature Gran % (Auto) 1.100 H, Neut % (Auto) 78.7 H, Lymph % (Auto) 14.7 L, [place] % (Auto) 4.2, Eos % (Auto) 1.1, Baso % (Auto) 0.2, Absolute Neuts (auto) 6.4, Absolute Lymphs (auto) 1.19, Nucleated RBC % 0 07/18/25 22:04: POC Glucose 121 H 07/19/25 01:13: POC Glucose 98 07/19/25 06:40: POC Glucose 67 L ROS Constitutional Constitutional: Reports systems reviewed and no addt'l complaints, except as documented; Denies anorexia or headache(s) Cardiovascular Cardiovascular: Reports systems reviewed and no addt'l complaints, except as documented; Denies dizziness, dyspnea, nausea or tachypnea Respiratory/Chest Respiratory/Chest: Reports systems reviewed and no addt'l complaints, except as documented; Denies cough, dyspnea, shortness of breath at rest or tachypnea Gastrointestinal Gastrointestinal: Reports systems reviewed and no addt'l complaints, except as documented; Denies abdominal pain, constipation or nausea Genitourinary Genitourinary: Reports systems reviewed and no addt'l complaints, except as documented; Denies burning urination, difficulty urinating, dysuria, urinary frequency or urinary incontinence Musculoskeletal Musculoskeletal: Reports systems reviewed and no addt'l complaints, except as documented Integumentary Integumentary: Reports systems reviewed and no addt'l complaints, except as documented Neurologic Neurologic: Reports systems reviewed and no addt'l complaints, except as documented; Denies abnormal speech, dizziness or headache(s) Psychiatric Psychiatric: Reports systems reviewed and no addt'l complaints, except as documented Endocrine Endocrinology: Reports systems reviewed and no addt'l complaints, except as documented Hematologic/Lymphatic Hematologic/Lymphatic: Reports systems reviewed and no addt'l complaints, except as documented Physical Exam Const alert, oriented x3 and no apparent distress Neck full ROM Resp normal respiratory effort, normal air movement and no retractions Effort and Inspection: able to speak in complete sentences and symmetric chest movement GI soft to palpation Bladder / Kidney Exam: bladder normal to palpation Extremity normal to inspection and full ROM Psych mental status grossly normal, thought process normal and cooperative Assessment & Plan (1) Gross hematuria: (2) Status post emergency hysterectomy: PLAN: s/p LTCS PPD # 3 1. routine post care 2. breast feeding- support given 3. rh positive 4. rubella immune (3) Status post section: (4) Gestational diabetes: COMMENT: nutrition consult, started metformin- increased to bid, twice weekly nsts, plan IOL 38 weeks uncontrolled diabetes (5) Abnormal glucose tolerance test: COMMENT: unable to tolerate the glucola. vomited twice. plan to start checking levels. (6) Positive serology for syphilis: COMMENT: redraw at 21 weeks, confirmation [facility] test negative. (7) Supervision of high-risk : QUALIFIERS: Trimester: third trimester Qualified Code(s): O09.93 - Supervision of high risk , unspecified, third trimester COMMENT: PRR , BEE 07/31/25, PC: Aleksey Flores Kinsley & Juno, : Rodrick (8) : QUALIFIERS: Weeks of gestation: 37 weeks Qualified Code(s): Z3A.37 - 37 weeks gestation of COMMENT: genetic low risk normal anatomy (9) Obesity affecting : QUALIFIERS: Trimester: second trimester Obesity type affecting : unspecified obesity Qualified Code(s): O99.212 - Obesity complicating , second trimester COMMENT: BMI 30.9, HgBA1C ordered w/NOB labs (10) History of pre-eclampsia in prior , currently : COMMENT: Baby ASA @ 12-28weeks; Pre-e baseline labs ordered w/NOB labs (11) History of vacuum extraction assisted delivery: COMMENT: First child (12) Hx of depression, currently : (13) Anxiety and depression: COMMENT: Not on meds - coping well (14) ASCUS of cervix with negative high risk HPV: COMMENT: 04/25/22 06/06/23 - Nml (15) Migraine with aura: Charges/Coding Multi Select Codes Urinary/Genital Urinary/Genital CPT Codes: No Charge
--- NOTE | 2025-07-19 14:23 | PRE.ANES_ITS ---
ASA Classification* ASA Classification ASA Classification: 2 Assessment & Plan Anesthesia* Anesthesia Assessment Anesthesia Assessment: Discussed sedation and/or anesthesia options, risks, benefits, and alternatives with patient/parents/legal guardian/POA. Questions invited. The patient/parents/legal guardian/POA seems to understand and agrees to proceed with anesthesia plan. Reviewed the physical assessment, medical history, allergy history and patient home medications list prior to surgery/procedure/anesthetic and documented any changes. Performed airway and anesthesia risk assessments. Anesthesia Type Anesthesia Type: MAC (GETA bkup. patient 3 days post Csection) Anesthesia Focused Assessment* Temperature: 97.6 F Pulse Rate: 84 Blood Pressure: 123/77 Respiratory Rate: 16 Pulse Ox: 97 Airway Assessment Mouth opens: >3 cm Mallampati Score: II Labs Anesthesia Preop lab: CBC WBC, (4.4-11.0) 8.1 K/mm3 07/18/25, 15:45 RBC, (4.2-5.4) 2.96 M/mm3 L 07/18/25, 15:45 Hgb, (12.0-15.0) 9.2 g/dL L 07/18/25, 15:45 Hct, (37-47) 27.5 % L 07/18/25, 15:45 Plt Count, (150-450) 160 K/mm3 07/18/25, 15:45 CHEMISTRY Potassium, (3.3-5.1) 3.8 mmol/L 07/18/25, 05:25 Sodium, (133-145) 139 mmol/L 07/18/25, 05:25 BUN, (4-19) 7 mg/dL 07/18/25, 05:25 Creatinine, (0.70-1.20) 0.43 mg/dL L 07/18/25, 05:25 Glucose, (70-99) 77 mg/dL 07/18/25, 05:25 POC Glucose, (74-106) 77 mg/dL Today, 11:02 TSH, (0.358-3.74) 0.73 uIU/mL 07/18/22, 10:21 COAG PT, (11.7-14.9) 13.2 SECONDS 10/16/19, 13:20 Pre-Assessment Diagnosis/Proposed Procedure Planned Operative Procedure(s): Cystoscopy, retrogrades. 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 When Was Last Pacemaker Check QUESTION #4 FULL TEXT: You/Your Family Experience fever (hyperthermia) with Anesthesia Last Oral Intake Last Oral intake: Last Oral Intake NPO since 08:30 07/16/25 22:00 Meds taken in AM with sips of water? Meds patient instructed to take am of surgery PONV PONV - rental salesperson: PONV - rental salesperson Female HX of Motion Sickness HX of N/V After Surgery Non-Smoker Duration of Surgery greater than 60 minutes Number of Risk Factors PONV Score Height & Weight Height & Weight: Anesthesia: Height & Weight Height 5 ft 07/16/25 12:54 Weight: 82.1 kg 07/16/25 12:54 Body Mass Index (BMI) 35.3 07/16/25 12:54 Respiratory Assessment Respiratory Assessment - rental salesperson: Respiratory Tract Infection Hx - rental salesperson Hx Respiratory Tract Infection STOP Sleep Apnea STOP Sleep Apnea - rental salesperson: STOP Sleep Apnea - rental salesperson Hx Hypertension Hx Sleep Apnea CPAP BIPAP Do you snore loudly (louder than talking or can be heard Do you often feel tired/ fatigued/ sleepy during daytime? Has anyone observed you stop breathing during sleep? STOP Results QUESTION #5 FULL TEXT : Do you snore loudly (louder than talking or can be heard through closed doors)? 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 Specify any problems Hx of Preganancy in last 3 Months Nurse Filling Out Transfusion & Questions: Date: Time: Patient unable to answer at this time (ie. confused, unrespo /Reproduction History /Reproductive History - rental salesperson: /Reproductive Hx- rental salesperson Hx Now Yes 07/16/25 13:00 Gestational Age (in weeks): 37 07/16/25 13:00 EDC: 07/31/25 07/16/25 23:20 Hx 5 07/16/25 13:00 Hx Para 4 07/16/25 13:00 Hx Section SAB 0 07/16/25 13:00 Yes 07/16/25 13:00 Active Medications Active Medications: Current Medications Generic Name Dose Route Start Last Admin Trade Name Freq PRN Reason Stop Dose Admin Acetaminophen 1,000 mg 07/17/25 04:00 07/19/25 12:26 Acetaminophen 500 Mg Tablet PO Not Given Q6H NESTOR Bisacodyl 10 mg 07/17/25 02:33 Bisacodyl 10 Mg Suppository RC DAILY PRN PRN Constipation Cephalexin 500 mg 07/17/25 14:00 07/19/25 08:40 Cephalexin 500 Mg Capsule PO 500 mg DAILY NESTOR Administration Enoxaparin Sodium 40 mg 07/17/25 10:15 07/19/25 08:39 Enoxaparin 40 Mg/0.4 Ml Syringe SC 40 mg Q24H NESTOR Administration Glucagon 1 mg 07/17/25 02:33 Glucagon 1 Mg/Ml Syringe IM X1 PRN HYPOGLYCEMIA Naloxone HCl 4 mg/ Dextrose 504 mls @ 0 mls/hr 07/17/25 02:33 IV .Q0M PRN Respiratory depression Protocol Titrate Dextrose 250 mls @ 0 mls/hr 07/17/25 02:33 Dextrose 10%-Water IV .Q0M PRN Hypoglycemia Protocol As Directed Ibuprofen 600 mg 07/18/25 02:30 07/19/25 08:40 Ibuprofen 600 Mg Tablet PO 600 mg Q6H NESTOR Administration Metformin HCl 500 mg 07/17/25 08:00 07/19/25 12:00 Metformin (Xr) 500 Mg Tablet PO Not Given DAILYCM NESTOR Methylergonovine Maleate 0.2 mg 07/17/25 02:33 Methylergonovine 0.2 Mg/Ml Ampul IM X1 PRN Uterine Atony Naloxone HCl 0.02 mg 07/17/25 02:33 Naloxone 0.4 Mg/Ml Syringe IV Q1M PRN RR <10 and pt unresponsive Naloxone HCl 0.02 mg 07/17/25 02:41 Naloxone 0.4 Mg/Ml Syringe IV Q1M PRN RR <10 and pt unresponsive Ondansetron HCl 4 mg 07/17/25 02:33 07/18/25 13:54 Ondansetron 4 Mg/2 Ml Vial IV 4 mg Q4H PRN PRN Administration NAUSEA Oxycodone HCl 5 - 10 mg 07/17/25 22:02 07/18/25 07:36 Oxycodone 5 Mg Tablet PO 10 mg Q4H PRN PRN Administration Pain Score 4-10 Multivit/Folic Acid/Iron 1 tablet 07/17/25 10:00 07/19/25 08:40 Vits Tablet PO 1 tablet DAILY NESTOR Administration Senna/Docusate Sodium 1 - 2 tablet 07/17/25 10:00 07/19/25 08:40 Senna/Docusate Sodium 1 Tablet PO 2 tablet DAILY NESTOR Administration Simethicone 80 mg 07/17/25 02:33 07/18/25 13:57 Simethicone 80 Mg Chewable Tablet PO 80 mg PCHS PRN Administration Indigestion/stomach pain Sodium Chloride 5 - 15 ml 07/17/25 02:33 07/18/25 15:55 0.9% Saline Lock 10 Ml Syringe IV 10 ml UD PRN Administration SALINE FLUSH PFSH Medical History Hx of depression, currently Abnormal thyroid function test Anxiety and depression Home Medications ?Medication ?Instructions ?Recorded ?Last Taken ?Type docosahexaenoic acid 200 mg 200 mg PO DAILY 12/11/24 07/16/25 History capsule ( DHA) flash glucose scanning reader #1 ea 05/28/25 Unknown R x (FreeStyle Marcos 2 [place]) flash glucose sensor (FreeStyle #1 ea 05/28/25 Unknown Rx Marcos 2 Sensor kit) metformin 500 mg tablet,extended 500 mg PO QDAY gdm #3 0 tabs 07/08/25 07/16/25 Rx release 24 hr (Glucophage XR) ibuprofen 800 mg tablet 800 mg PO Q8H PRN pain #30 t abs 07/16/25 Unknown Rx oxycodone-acetaminophen 5 mg-325 1 tab PO Q4H PRN pain 7 days #20 07/16/25 Unknown Rx mg tablet (Percocet) tabs Allergy/AdvReac Type Severity Reaction Status Date / Time No Known Allergies Allergy Verified 07/16/25 12:55 Surgical History History of vacuum extraction assisted delivery Social History adopted: No household members: significant other and children housing: house number of children: 4 current occupational status: unemployed current occupation: [employer] current occupational exposures/hazards: No pets and animals: Yes pets and animals: dog(s) history of recent travel: No sexually active: Yes Smoking Status: Never smoker second hand exposure: No alcohol intake: never substance use type: does not use well-balanced diet: daily or most days caffeine: No eating out: rarely or never during the past year weight has: increased > 10 lbs what type of physical activity do you participate in: walking frequency: 5-6 times per week duration: 30-45 minutes/day aliza/buddhist: None seatbelt use: always do you feel safe at home: Yes additional social history: : 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
--- NOTE | 2025-07-19 16:08 | PCM.OPRPT ---
Operative Report (Standard) Operative Information Date of Procedure: 07/19/25 Pre-Operative Diagnosis: gross hematuria intraoperatively Post-Operative Diagnosis: Ecchymosis of the bladder mucosa Surgery/Procedure Performed: Cystoscopy, bilateral retrograde pyelograms, cystogram mri technician: No Type of Anesthesia: MAC RN Documented Start/Stop Times: Operation Date: 07/19/25 16:00 Case Time Anesthesia Start 07/19/25 16:06 Into Room 07/19/25 16:06 Procedure Start 07/19/25 16:20 Procedure End 07/19/25 16:28 Anesthesia End 07/19/25 16:37 Out of Room 07/19/25 16:37 Into Recovery 07/19/25 16:40 Out of Recovery 07/19/25 17:13 Procedure Start Time: 16:20 Procedure Stop Time: 16:28 Select all DRAINS/GRAFTS/IMPLANTS that apply: None Estimated Blood Loss: <5cc Specimen collected: No Description of surgery: The patient is a 30-year-old female with a section and hysterectomy who had gross hematuria and her catheter during the procedure. She presents for cystoscopic evaluation. Informed consent was obtained. She was taken to the operating room and placed on the operating room table. Anesthesia monitored the head, neck, airway, IV access and vital signs throughout the case. Once anesthesia was appropriate ministered, she was placed into dorsolithotomy position was prepped and draped in usual sterile fashion. The cystoscope was inserted through the urethra under direct visualization into the urinary bladder. Upon entry into the urinary bladder the mucosa was visualized in its entirety revealing bruising of the area of the trigone with no evidence of laceration, foreign body. An 8 Sammarinese cone-tip catheter was then used to gently cannulate each ureteral orifice and approximately 15 cc of diluted contrast was injected in retrograde fashion under fluoroscopic visualization. Both collecting systems were found to be intact without evidence of obstruction. At this time the bladder was filled with contrast and saline to 400 cc. This was visualized under fluoroscopy. The bladder was then emptied and fluoroscopy revealed no evidence of extravasation. The patient was then awakened and taken to the recovery room in good condition. There were no complications during this procedure. Surgical Findings: Bladder hematoma, no laceration. Macias catheter left out. Complications Complications: No Admit VTE Documentation VTE Present on Admission: Yes VTE Mechan Device Prophylaxis: SCD's VTE Pharm Prophylaxis ordered?: No Reason prophylaxis not ordered: Treatment Not Indicated
[2025-07-19] MEDS: Midazolam 2 MG/2 ML Syringe IV (16:12)
[2025-07-19] MEDS: Lidocaine 1% (5 ml sdv) 5 ML Vial IV (16:15)
[2025-07-19] MEDS: Cefazolin 1 GM/5 ML Vial 2 GM IV (16:16)
[2025-07-19] MEDS: fentaNYL 100 MCG/2 ML Ampul IV (16:20)
--- NOTE | 2025-07-19 16:45 | PCM.POST.ANE ---
Anesthesia: Postop Eval I Current Vital Signs Temperature: 97.6 F Pulse Rate: 78 Blood Pressure: 121/61 Respiratory Rate: 20 Pulse Ox: 96 Oxygen Delivery Method: Nasal Cannula Oxygen Flow Rate (L/min): 4 Assessment Airway patent: Yes Spontaneous unlabored respirations: Yes Mental status: Awake and Calm nausea: No Vomiting: No Anesthesia Complication: No Fluid Hydration Crystalloid volume administer (ml): 200 Total IV fluid infused: 200 Progress Note Anesthesia document: Postop Eval 1 completed: Yes
--- NOTE | 2025-07-19 17:15 | SUR.PHASEI ---
report called to [facility] [place]
--- NOTE | 2025-07-19 17:28 | POSTOPAN2_ITS ---
Anesthesia Postop Eval I Sum Postop Eval Completion status Anesthesia document: Postop Eval 1 completed: Yes Anesthesia Postop Eval I Summary Anesthesia Postop Eval I Summary: Anesthesia Postop Eval I: Assessment Summary Airway patent Yes 07/19/25 16:47 SENIOR PRICING ANALYST.SHOF Spontaneous unlabored Yes 07/19/25 16:47 SENIOR PRICING ANALYST.SHOF respirations Mental status Awake,Calm 07/19/25 16:47 SENIOR PRICING ANALYST.SHOF nausea No 07/19/25 16:47 SENIOR PRICING ANALYST.SHOF Vomiting No 07/19/25 16:47 SENIOR PRICING ANALYST.SHOF Anesthesia Postop Eval I: Fluid Summary Crystalloid volume administer 200 07/19/25 16:47 SENIOR PRICING ANALYST.SHOF (ml) Colloids volume administered ( ml) Blood Product volume administered (ml) Total IV fluid infused 200 07/19/25 16:47 SENIOR PRICING ANALYST.SHOF Anesthesia Postop Eval I: Summary Notes Anesthesia Complication No 07/19/25 16:47 SENIOR PRICING ANALYST.SHOF Anesthesia Complication Comment: Post-operative progress note Anesthesia: Postop Eval II Evaluation Mental status: Awake and Calm Pain Level: 3 nausea: No Vomiting: No Complications Anesthesia Complication: No
--- NOTE | 2025-07-19 17:28 | PCM.POSTANE2 ---
Anesthesia Postop Eval I Sum Postop Eval Completion status Anesthesia document: Postop Eval 1 completed: Yes Anesthesia Postop Eval I Summary Anesthesia Postop Eval I Summary: Anesthesia Postop Eval I: Assessment Summary Airway patent Yes 07/19/25 16:47 WEED COOKING [email or web address] Spontaneous unlabored Yes 07/19/25 16:47 WEED COOKING OPERATOR.SHOF respirations Mental status Awake,Calm 07/19/25 16:47 WEED COOKING OPERATOR.SHOF nausea No 07/19/25 16:47 WEED COOKING OPERATOR.SHOF Vomiting No 07/19/25 16:47 WEED COOKING OPERATOR.SHOF Anesthesia Postop Eval I: Fluid Summary Crystalloid volume administer 200 07/19/25 16:47 WEED COOKING OPERATOR.SHOF (ml) Colloids volume administered ( ml) Blood Product volume administered (ml) Total IV fluid infused 200 07/19/25 16:47 WEED COOKING OPERATOR.SHOF Anesthesia Postop Eval I: Summary Notes Anesthesia Complication No 07/19/25 16:47 WEED COOKING OPERATOR.SHOF Anesthesia Complication Comment: Post-operative progress note Anesthesia: Postop Eval II Evaluation Mental status: Awake and Calm Pain Level: 3 nausea: No Vomiting: No Complications Anesthesia Complication: No
--- NOTE | 2025-07-19 17:37 | PCM.PN.BLA ---
Progress Note Per Dr Anguiano patient ok for discharge as Procedure by Dr Chisholm was normal. discussed discharge with patient. will wait for void and then ok for discharge. Assessment & Plan Assessment/Plan (1) Gross hematuria: (2) Status post emergency hysterectomy: (3) Status post section: (4) Gestational diabetes: (5) Abnormal glucose tolerance test: (6) Positive serology for syphilis: (7) Supervision of high-risk : QUALIFIERS: Trimester: third trimester Qualified Code(s): O09.93 - Supervision of high risk , unspecified, third trimester (8) : QUALIFIERS: Weeks of gestation: 37 weeks Qualified Code(s): Z3A.37 - 37 weeks gestation of (9) Obesity affecting : QUALIFIERS: Trimester: second trimester Obesity type affecting : unspecified obesity Qualified Code(s): O99.212 - Obesity complicating , second trimester (10) History of pre-eclampsia in prior , currently : (11) History of vacuum extraction assisted delivery: (12) Hx of depression, currently : (13) Anxiety and depression: (14) ASCUS of cervix with negative high risk HPV: (15) Migraine with aura: Multi Select Codes Urinary/Genital Urinary/Genital CPT Codes: No Charge
--- NOTE | 2025-07-19 17:38 | DS.PCM_ITS ---
Providers Date of Admission: 07/16/25 Date of Discharge: 07/19/25 Primary Care Physician: ROBERT VIRK MD Consultations 07/17/25 10:15 Consult: Urology Routine Consulting Provider: Radha Chisholm Reason for Consult: Uday Hematuria, Low Urine Output EMERGENT Consult: No MD Notified: Yes Date Notified: 07/17/25 Time Notified: 10:00 Method of Notification: Verbal Reason For Visit: LABOR Diagnosis Discharge Diagnosis (1) Gross hematuria: Status: Acute Code(s): R31.0 - Gross hematuria (2) Status post emergency hysterectomy: Status: Acute Code(s): Z90.710 - Acquired absence of both cervix and uterus Plan: s/p LTCS PPD # 3 1. routine post care 2. breast feeding- support given 3. rh positive 4. rubella immune (3) Status post section: Status: Acute Code(s): Z98.891 - History of uterine scar from previous surgery (4) Gestational diabetes: Status: Acute Code(s): O24.419 - Gestational diabetes mellitus in , unspecified control (5) Abnormal glucose tolerance test: Status: Acute Code(s): R73.09 - Other abnormal glucose (6) Positive serology for syphilis: Status: Acute Code(s): A53.0 - Latent syphilis, unspecified as early or late (7) Supervision of high-risk : Status: Acute Code(s): O09.90 - Supervision of high risk , unspecified, unspecified trimester Qualifiers: Trimester: third trimester Qualified Code(s): O09.93 - Supervision of high risk , unspecified, third trimester (8) : Status: Acute Code(s): Z34.90 - Encounter for supervision of normal , unspecified, unspecified trimester Qualifiers: Weeks of gestation: 37 weeks Qualified Code(s): Z3A.37 - 37 weeks gestation of (9) Obesity affecting : Status: Acute Code(s): O99.210 - Obesity complicating , unspecified trimester Qualifiers: Trimester: second trimester Obesity type affecting : u nspecified obesity Qualified Code(s): O99.212 - Obesity complicating , second trimester (10) History of pre-eclampsia in prior , currently : Status: Acute Code(s): O09.299 - Supervision of with other poor reproductive or obstetric history, unspecified trimester (11) History of vacuum extraction assisted delivery: Status: Acute Code(s): Z87.59 - Personal history of other complications of , childbirth and the puerperium (12) Hx of depression, currently : Status: Acute Code(s): O99.891 - Other specified diseases and conditions complicating ; Z86.59 - Personal history of other mental and behavioral disorders (13) Anxiety and depression: Status: Acute Code(s): F41.9 - Anxiety disorder, unspecified; F32.9 - Major depressive disorder, single episode, unspecified (14) ASCUS of cervix with negative high risk HPV: Status: Acute Code(s): R87.610 - Atypical squamous cells of undetermined significance on cytologic smear of cervix (ASC-US) (15) Migraine with aura: Status: Acute Code(s): G43.109 - Migraine with aura, not intractable, without status migrainosus Medications at Discharge Home Medications docosahexaenoic acid 200 mg capsule ( DHA) 200 mg PO DAILY 12/11/24 flash glucose scanning reader (FreeStyle Marcos 2 [place]) #1 ea 05/28/25 flash glucose sensor (FreeStyle Marcos 2 Sensor kit) #1 ea 05/28/25 metformin 500 mg tablet,extended release 24 hr (Glucophage XR) 500 mg PO QDAY gdm #30 tabs 07/08/25 ibuprofen 800 mg tablet 800 mg PO Q8H PRN pain #30 tabs 07/16/25 oxycodone-acetaminophen 5 mg-325 mg tablet (Percocet) 1 tab PO Q4H PRN pain 7 days #20 tabs 07/16/25 Hospital Course Operations section, hysterectomy (with c/s) and - (Cystoscopy, bilateral retrograde pyelograms, cystogram) Procedures None Summary of Care Provided Minutes Spent on Discharge: 30 Physical Exam Const alert, oriented x3 and no apparent distress Neck full ROM Resp normal respiratory effort, normal air movement and no retractions Effort and Inspection: able to speak in complete sentences and symmetric chest movement GI soft to palpation Inspection: incision intact Bladder / Kidney Exam: bladder normal to palpation Extremity normal to inspection and full ROM Psych mental status grossly normal, thought process normal and cooperative Weight / BMI Weight Weight: 181 lb Body Mass Index (BMI) 35.3 ABG / Lab / Microbiology Data 07/18/25 15:45 07/18/25 05:25 Laboratory: Laboratory Results - last 24 hr 07/18/25 22:04: POC Glucose 121 H 07/19/25 01:13: POC Glucose 98 07/19/25 06:40: POC Glucose 67 L 07/19/25 11:02: POC Glucose 77 07/19/25 14:51: POC Glucose 66 L D/C Instructions May shower in (days): 0 May resume sexual activity in: 4-6 weeks Weight Bearing Status: Full weight bearing Call your doctor if your incision/area has: Continuous Slow Oozing, Sudden Increased Bleeding, Increased Pain/ Swelling, Increased Redness and Foul Smelling Discharge Call your doctor if you observe: Fever of 101 or Higher and Using more than 1 pad per hour Suture Line Care: Avoid Pulling/Pushing and Avoid Pinching/Bending Cleanse incision/area with: Soap & Water and Keep Dressing Clean & Dry DC O2, CPAP, BIPAP Needs Home O2 Discharge instructions: No Please Follow Up With: Heidi Mayer DO When: Call [phone] to make an appointment for an incision check in 1-2 weeks. Discharge Plan Admission Admit Date/Time: 07/16/25 12:36 Primary Reason for Your Visit: section Attending Provider: Heidi Mayer Primary Care Provider: ROBERT VIRK Consulting Providers: Radha Chisholm Discharge Orders/Prescriptions Prescriptions: New ibuprofen 800 mg tablet 800 mg PO Q8H PRN (Reason: pain) Qty: 30 0RF oxycodone-acetaminophen [Percocet] 5-325 mg tablet 1 tab PO Q4H PRN (Reason: pain) 7 Days Qty: 20 0RF Continued DHA 200 mg capsule 200 mg PO DAILY (DME) FreeStyle Marcos 2 [place] Misc See Rx Instructions .Route Qty: 1 0RF Rx Instructions: As directed (DME) FreeStyle Marcos 2 Sensor Kit See Rx Instructions .Route Qty: 1 12RF Rx Instructions: As directed metformin [Glucophage XR] 500 mg tablet extended release 24 hr 500 mg PO QDAY Qty: 30 1RF Referrals / Follow Up: ROBERT VIRK MD [Primary Care Provider, [facility]] Disposition Disposition (needs filled in before D/C Order can be placed): Home, Self Care
[2025-07-19 22:11] LABS: RPR INTERPRETATION NR
--- NOTE | 2025-07-24 13:13 | DS.PCM_ITS ---
Providers Date of Admission: 07/16/25 Primary Care Physician: ROBERT VIRK MD Consultations 07/17/25 10:15 Consult: Urology Routine Consulting Provider: Radha Chisholm Reason for Consult: Yue Hematuria, Low Urine Output EMERGENT Consult: No MD Notified: Yes Date Notified: 07/17/25 Time Notified: 10:00 Method of Notification: Verbal Reason For Visit: LABOR Diagnosis Discharge Diagnosis (1) Gross hematuria: Status: Acute Code(s): R31.0 - Gross hematuria (2) Status post emergency hysterectomy: Status: Acute Code(s): Z90.710 - Acquired absence of both cervix and uterus (3) Status post section: Status: Acute Code(s): Z98.891 - History of uterine scar from previous surgery (4) Gestational diabetes: Status: Acute Code(s): O24.419 - Gestational diabetes mellitus in , unspecified control (5) Abnormal glucose tolerance test: Status: Acute Code(s): R73.09 - Other abnormal glucose (6) Positive serology for syphilis: Status: Acute Code(s): A53.0 - Latent syphilis, unspecified as early or late (7) Supervision of high-risk : Status: Acute Code(s): O09.90 - Supervision of high risk , unspecified, unspecified trimester Qualifiers: Trimester: third trimester Qualified Code(s): O09.93 - Supervision of high risk , unspecified, third trimester (8) : Status: Acute Code(s): Z34.90 - Encounter for supervision of normal , unspecified, unspecified trimester Qualifiers: Weeks of gestation: 37 weeks Qualified Code(s): Z3A.37 - 37 weeks gestation of (9) Obesity affecting : Status: Acute Code(s): O99.210 - Obesity complicating , unspecified trimester Qualifiers: Trimester: second trimester Obesity type affecting : u nspecified obesity Qualified Code(s): O99.212 - Obesity complicating , second trimester (10) History of pre-eclampsia in prior , currently : Status: Acute Code(s): O09.299 - Supervision of with other poor reproductive or obstetric history, unspecified trimester (11) History of vacuum extraction assisted delivery: Status: Acute Code(s): Z87.59 - Personal history of other complications of , childbirth and the puerperium (12) Hx of depression, currently : Status: Acute Code(s): O99.891 - Other specified diseases and conditions complicating ; Z86.59 - Personal history of other mental and behavioral disorders (13) Anxiety and depression: Status: Acute Code(s): F41.9 - Anxiety disorder, unspecified; F32.9 - Major depressive disorder, single episode, unspecified (14) ASCUS of cervix with negative high risk HPV: Status: Acute Code(s): R87.610 - Atypical squamous cells of undetermined significance on cytologic smear of cervix (ASC-US) (15) Migraine with aura: Status: Acute Code(s): G43.109 - Migraine with aura, not intractable, without status migrainosus Plan s/p c-hyst day#0 1. maintain sosa catheter until after Dr. Chisholm can do a cystoscopy to confirm that the yue hematuria during surgery is not a concern. start prophylactic antibiotics keflex 500 daily. 2. breast feeding- support given 3. rh positive 4. rubella immune 5. plan to rpt cbc and cmp tomorrow. Medications at Discharge Home Medications docosahexaenoic acid 200 mg capsule ( DHA) 200 mg PO DAILY 12/11/24 flash glucose scanning reader (FreeStyle Marcos 2 [place]) #1 ea 05/28/25 flash glucose sensor (FreeStyle Marcos 2 Sensor kit) #1 ea 05/28/25 metformin 500 mg tablet,extended release 24 hr (Glucophage XR) 500 mg PO QDAY gdm #30 tabs 07/08/25 ibuprofen 800 mg tablet 800 mg PO Q8H PRN pain #30 tabs 07/16/25 oxycodone-acetaminophen 5 mg-325 mg tablet (Percocet) 1 tab PO Q4H PRN pain 7 days #20 tabs 07/16/25 Hospital Course Operations hysterectomy (-hysterectomy ) Summary of Care Provided Hospital Course: The patient was admitted to L&D on 07/16/25 for variable deceleration in the office. Labor was augmented with arom as she was found to be scott and dilated 4 cm. She progressed slowly to 9 cm and attempt was made for an hour to push through the anterior lip however this became edematous and she rested for an hour. After an hour she pushed again for another 2.5 hours and her vulva and vagina became extremely edematous. A vacuum extraction was offered as the patient was tearful stating that she could not push any longer. The vacuum was applied to the head and this caused exreme discomfort with the patient. Before the vacuum could be activated she requested immediate removal and requested a section. An tatyana was performed and a viable fetus wasd delivered. However, during surgery a right lateral extension of the uterine incision was encountered. Repair was unsuccessful and hemorrhage began. After over and hour and 1/2 attempt to repair the uterus, the decision was made to convert to a hysterectomy. The patient's gave consent. She was transfused 2 units of blood during the procedure due to more than usual blood loss. After 3.5 hours of surgery, the procedure was completed. At one point during the surgery her sosa filled with blood. The sosa was flushed and clear urine remained for the next 12 hours. The next morning, 07/17/25, a CT scan was performed showing normal ureters and bladder. Dr. Chisholm was consulted and the decision was made to keep the sosa in place just in case of a problem due to suspicious finding on CT that read that the uterus was still intact. Because this was a hysterectomy, the conclusion was made that what the radiologist saw could have been a retroperitoneal hematoma. Cystoscopy on 07/19/25 was performed and found to be normal. The patient's hemoglobin remained stable and even increased by 1 gram. on 09/18/25 later in the day, the patient was discharged to home in stable condition. Weight / BMI Weight Weight: 181 lb Body Mass Index (BMI) 35.3 ABG / Lab / Microbiology Data 07/18/25 15:45 07/18/25 05:25 D/C Instructions Discharge Activity: May Not Drive (for 2 weeks or while taking narcotic pain medications.), May Shower and May Take a Tub Bath (in 7 days.) May resume sexual activity in: 6-8 weeks Weight Bearing Status: Full weight bearing Lifting Restrictions: 10 pounds Call your doctor if your incision/area has: Continuous Slow Oozing, Sudden Increased Bleeding, Increased Pain/ Swelling, Increased Redness and Foul Smelling Discharge Call your doctor if you observe: Fever of 101 or Higher and Using more than 1 pad per hour Suture Line Care: Avoid Pulling/Pushing and Avoid Pinching/Bending Remove Dressing in: 1 week Cleanse incision/area with: Keep Dressing Clean & Dry DC O2, CPAP, BIPAP Needs Home O2 Discharge instructions: No DC home with Oxygen: No Please Follow Up With: Heidi Mayer, When: Call [phone] to make an appointment for an incision check in 1-2 weeks. Meaningful Use Info Meaningful Use Meaningful Use Diagnoses (Choose all that apply): None applicable Discharge Plan Admission Admit Date/Time: 07/16/25 12:36 Primary Reason for Your Visit: section Attending Provider: Heidi Mayer Primary Care Provider: ROBERT VIRK Consulting Providers: Radha Chisholm Discharge Orders/Prescriptions Prescriptions: New ibuprofen 800 mg tablet 800 mg PO Q8H PRN (Reason: pain) Qty: 30 0RF oxycodone-acetaminophen [Percocet] 5-325 mg tablet 1 tab PO Q4H PRN (Reason: pain) 7 Days Qty: 20 0RF Continued DHA 200 mg capsule 200 mg PO DAILY (DME) FreeStyle Marcos 2 [place] Misc See Rx Instructions .Route Qty: 1 0RF Rx Instructions: As directed (DME) FreeStyle Marcos 2 Sensor Kit See Rx Instructions .Route Qty: 1 12RF Rx Instructions: As directed metformin [Glucophage XR] 500 mg tablet extended release 24 hr 500 mg PO QDAY Qty: 30 1RF Referrals / Follow Up: ROBERT VIRK MD [Primary Care Provider, [facility]] Disposition Disposition (needs filled in before D/C Order can be placed): Home, Self Care
== END 2025-07-19 19:30 | disposition home or self-care (01) | DRG 540 ==
PROVIDERS: Urology; Admitting Provider Advanced Practice Midwife; PCP Family Medicine; Referring Provider Advanced Practice Midwife; Visit Provider Obstetrics & Gynecology
PROC: BT14YZZ Fluoroscopy of Kidneys, Ureters and Bladder using Other Contrast (ICD-10-PCS; CPT 52332; principal; 2025-07-19 15:50)
DX: O32.4XX0 Maternal care for high head at term, not applicable or unspecified (principal); A53.0 Latent syphilis, unspecified as early or late; K56.7 Ileus, unspecified; O67.9 Intrapartum hemorrhage, unspecified; O98.12 Syphilis complicating childbirth; F32.A Depression, unspecified; O99.354 Diseases of the nervous system complicating childbirth; O24.425 Gestational diabetes mellitus in childbirth, controlled by oral hypoglycemic drugs; F41.9 Anxiety disorder, unspecified; G43.109 Migraine with aura, not intractable, without status migrainosus; K91.89 Other postprocedural complications and disorders of digestive system; N99.840 Postprocedural hematoma of a genitourinary system organ or structure following a genitourinary system procedure; N99.71 Accidental puncture and laceration of a genitourinary system organ or structure during a genitourinary system procedure; Z37.0 Single live birth; Z79.891 Long term (current) use of opiate analgesic; O99.344 Other mental disorders complicating childbirth; Z3A.37 37 weeks gestation of pregnancy; R31.0 Gross hematuria; O76 Abnormality in fetal heart rate and rhythm complicating labor and delivery; O99.62 Diseases of the digestive system complicating childbirth; Z87.59 Personal history of other complications of pregnancy, childbirth and the puerperium; O99.63 Diseases of the digestive system complicating the puerperium; Y82.8 Other medical devices associated with adverse incidents; O99.893 Other specified diseases and conditions complicating puerperium; R87.610 Atypical squamous cells of undetermined significance on cytologic smear of cervix (ASC-US); O99.892 Other specified diseases and conditions complicating childbirth
CPT/HCPCS: 59025; 59050; 74178; 76000; 80048; 80053; 82962; 85025; 85027; 86780; 86850; 86900; 86901; 88307; 99221; P9016; Q9967; A4216; G0378; J2405